=== PATIENT | male | born 1945 | race Caucasian/White ===

== ENCOUNTER 2017-04-24 12:21 | Inpatient (IN) | payer MEDICARE ==
[2017-04-24] VITALS (9 sets, daily range): BP systolic 133–198; BP diastolic 64–86; PULSE 48–61; RESP 16–20; TEMP 97.7–98.3; O2SAT 98–99
[~2017-04-24] VITALS: Ht 170.2 cm; Wt 72.5 kg
[2017-04-24] MEDS ORDERED: ASPIRIN 81 MG CHEW TAB CHEW ONE (12:45)
[2017-04-24] MEDS ORDERED: SODIUM CHLORIDE 0.9% FLUSH 10 ML FLUSH IVF PRN (12:45)
--- NOTE | 2017-04-24 13:09 | PD ---
HPI Chief Complaint: Chest Pain Time Seen by Provider: 12:28 Travel History International Travel<30 days: No Contact w/Intl Traveler<30days: No Traveled to known affect area: No History of Present Illness HPI The patient is a 71-year-old male who presents to the emergency department via private vehicle for back pain. 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 Recently he has had some neck pain of the superior aspect of the thoracic region and the lower cervical spine, but now complains of occasional pain between the scapula that radiates to the front of the chest. He denies any shortness of breath, nausea, vomiting, or diaphoresis. The patient denies any history of coronary artery disease, hypertension, hyperlipidemia, tobacco use, or diabetes. The patient states he exercises regularly, denies any chest pain or shortness of breath with exercise. Symptoms are moderate. He takes no medications except for vitamins on a daily basis. He denies any history of dissection, GERD, or esophageal spasm. He denies any alcohol intake or history of pancreatitis. [facility]LY [facility] Past Medical History Medical History: Denies Significant Hx Diminished Hearing: No Tetanus Vaccination: > 5 Years Influenza Vaccination: No Past Surgical History Abdominal Surgery: Yes (hernia repair) Social History Alcohol Use: No Tobacco Use: No Substance Use: No Allergies-Medications (Allergen,Severity, Reaction): Coded Allergies: No Known Allergies (Unverified , 04/24/17) Reported Meds & Prescriptions Reported Meds & Active Scripts Active No Active Prescriptions or Reported Medications Review of Systems Except as stated in HPI: all other systems reviewed are Neg General / Constitutional: No: Fever HENT: Positive: Neck Pain Cardiovascular: Positive: Chest Pain or Discomfort, No: Dyspnea on exertion Respiratory: No: Shortness of Breath Gastrointestinal: No: Nausea, Vomiting, Abdominal Pain Musculoskeletal: No: Weakness Neurologic: No: Dizziness Physical Exam Narrative GENERAL: Awake, alert, pleasant 71-year-old male who appears his stated age and is in no acute respiratory distress. SKIN: Focused skin assessment warm/dry. HEAD: Atraumatic. Normocephalic. EYES: Pupils equal and round. No scleral icterus. No injection or drainage. ENT: No nasal bleeding or discharge. Mucous membranes pink and moist. NECK: Trachea midline. No JVD. Mild tenderness of the lower cervical area, no tenderness over the paravertebral muscles. CARDIOVASCULAR: Regular rate and rhythm. No murmur appreciated. RESPIRATORY: No accessory muscle use. Clear to auscultation. Breath sounds equal bilaterally. GASTROINTESTINAL: Abdomen soft, non-tender, nondistended. No rebound tenderness. No epigastric tenderness. MUSCULOSKELETAL: No obvious deformities. No clubbing. No cyanosis. No edema. NEUROLOGICAL: Awake and alert. No obvious cranial nerve deficits. Motor grossly within normal limits. Normal speech. PSYCHIATRIC: Appropriate mood and affect; insight and judgment normal. Data Data Last Documented VS Vital Signs Date Time Temp Pulse Resp B/P (MAP) Pulse Ox O2 Delivery O2 Flow Rate FiO2 04/24/17 13:07 60 16 144/69 (94) 99 Room Air 04/24/17 12:24 98.2 Orders Orders Electrocardiogram (04/24/17 12:39) Ckmb (Isoenzyme) Profile (04/24/17 12:39) Complete Blood Count With Diff (04/24/17 12:39) Comprehensive Metabolic Panel (04/24/17 12:39) Magnesium (Mg) (04/24/17 12:39) Prothrombin Time / Inr (Pt) (04/24/17 12:39) Act Partial Throm Time (Ptt) (04/24/17 12:39) Troponin I (04/24/17 12:39) Chest, Single Ap (04/24/17 12:39) Ecg Monitoring (04/24/17 12:39) Bilateral Bp Monitoring (04/24/17 12:39) Iv Access Insert/Monitor (04/24/17 12:39) Oximetry (04/24/17 12:39) Oxygen Administration (04/24/17 12:39) Sodium Chloride 0.9% Flush (Ns Flush) (04/24/17 12:45) Aspirin Chew (Aspirin Chew) (04/24/17 12:45) CKMB (04/24/17 12:45) CKMB% (04/24/17 12:45) Admit Order (Ed Use Only) (04/24/17 15:37) Labs Laboratory Tests Test 04/24/17 12:45 White Blood Count 9.6 TH/MM3 Red Blood Count 5.74 MIL/MM3 Hemoglobin 19.0 GM/DL Hematocrit 53.4 % Mean Corpuscular Volume 93.1 FL Mean Corpuscular Hemoglobin 33.0 PG Mean Corpuscular Hemoglobin Concent 35.5 % Red Cell Distribution Width 13.4 % Platelet Count 181 TH/MM3 Mean Platelet Volume 8.7 FL Neutrophils (%) (Auto) 75.3 % Lymphocytes (%) (Auto) 15.6 % Monocytes (%) (Auto) 7.6 % Eosinophils (%) (Auto) 0.8 % Basophils (%) (Auto) 0.7 % Neutrophils # (Auto) 7.2 TH/MM3 Lymphocytes # (Auto) 1.5 TH/MM3 Monocytes # (Auto) 0.7 TH/MM3 Eosinophils # (Auto) 0.1 TH/MM3 Basophils # (Auto) 0.1 TH/MM3 CBC Comment DIFF FINAL Differential Comment Prothrombin Time 11.2 SEC Prothromb Time International Ratio 1.1 RATIO Activated Partial Thromboplast Time 23.5 SEC Blood Urea Nitrogen 25 MG/DL Creatinine 1.35 MG/DL Random Glucose 94 MG/DL Total Protein 7.5 GM/DL Albumin 3.4 GM/DL Calcium Level 9.4 MG/DL Magnesium Level 2.4 MG/DL Alkaline Phosphatase 60 U/L Aspartate Amino Transf (AST/SGOT) 46 U/L Alanine Aminotransferase (ALT/SGPT) 44 U/L Total Bilirubin 0.9 MG/DL Sodium Level 138 MEQ/L Potassium Level 4.1 MEQ/L Chloride Level 104 MEQ/L Carbon Dioxide Level 25.7 MEQ/L Anion Gap 8 MEQ/L Estimat Glomerular Filtration Rate 52 ML/MIN Total Creatine Kinase 568 U/L Creatine Kinase MB 7.7 NG/ML Creatine Kinase MB % 1.4 % Troponin I 0.07 NG/ML MDM Medical Decision Making Medical Screen Exam Complete: Yes Emergency Medical Condition: Yes Medical Record Reviewed: Yes Interpretation(s) EKG reveals normal sinus rhythm with a rate of 62. RSR prime in V1, incomplete right bundle branch block. Laboratory Tests Test 04/24/17 12:45 White Blood Count 9.6 TH/MM3 Red Blood Count 5.74 MIL/MM3 Hemoglobin 19.0 GM/DL Hematocrit 53.4 % Mean Corpuscular Volume 93.1 FL Mean Corpuscular Hemoglobin 33.0 PG Mean Corpuscular Hemoglobin Concent 35.5 % Red Cell Distribution Width 13.4 % Platelet Count 181 TH/MM3 Mean Platelet Volume 8.7 FL Neutrophils (%) (Auto) 75.3 % Lymphocytes (%) (Auto) 15.6 % Monocytes (%) (Auto) 7.6 % Eosinophils (%) (Auto) 0.8 % Basophils (%) (Auto) 0.7 % Neutrophils # (Auto) 7.2 TH/MM3 Lymphocytes # (Auto) 1.5 TH/MM3 Monocytes # (Auto) 0.7 TH/MM3 Eosinophils # (Auto) 0.1 TH/MM3 Basophils # (Auto) 0.1 TH/MM3 CBC Comment DIFF FINAL Differential Comment Prothrombin Time 11.2 SEC Prothromb Time International Ratio 1.1 RATIO Activated Partial Thromboplast Time 23.5 SEC Blood Urea Nitrogen 25 MG/DL Creatinine 1.35 MG/DL Random Glucose 94 MG/DL Total Protein 7.5 GM/DL Albumin 3.4 GM/DL Calcium Level 9.4 MG/DL Magnesium Level 2.4 MG/DL Alkaline Phosphatase 60 U/L Aspartate Amino Transf (AST/SGOT) 46 U/L Alanine Aminotransferase (ALT/SGPT) 44 U/L Total Bilirubin 0.9 MG/DL Sodium Level 138 MEQ/L Potassium Level 4.1 MEQ/L Chloride Level 104 MEQ/L Carbon Dioxide Level 25.7 MEQ/L Anion Gap 8 MEQ/L Estimat Glomerular Filtration Rate 52 ML/MIN Total Creatine Kinase 568 U/L Creatine Kinase MB 7.7 NG/ML Creatine Kinase MB % 1.4 % Troponin I 0.07 NG/ML Last Impressions Chest X-Ray 04/24/17 1239 Signed Impressions: Service Date/Time: Monday, April 24, 2017 12:55 - CONCLUSION: 1. No acute cardiopulmonary disease. Genaro Bragg MD Differential Diagnosis Differential diagnosis includes acute coronary syndrome, radiculopathy, esophageal spasm, GERD, dissection, aneurysm. Narrative Course IV was established, labs are drawn and sent, and the patient was placed on cardiac telemetry monitoring and continuous pulse oximetry monitoring. EKG was ordered and interpreted. Chest x-rays obtained. The patient received aspirin 162 mg orally. Chest x-rays unremarkable. Troponin was elevated at 0.07. The patient's hemoglobin was elevated at 19 and CPK-MB and CPK were elevated. The patient does use testosterone, most likely the result of his polycythemia. Elevated troponin may be secondary to rhabdomyolysis, acute kidney injury, or cardiac ischemia. The patient does have risk factors including age, male sex, and testosterone use. After discussion with the patient was agreed we would be a 23 hour observation for serial cardiac enzymes and possible stress test. Physician Communication Physician Communication The on-call medical team was paged for admission. I discussed the patient with Dr. March who agrees with admission. Diagnosis Primary Impression: NSTEMI, initial episode of care Admitting Information Admitting Physician Requests: Admit Scripts No Active Prescriptions or Reported Meds Condition: Stable Pedrito Foley MD Apr 24, 2017 13:09
--- NOTE | 2017-04-24 13:15 | RADRPT ---
EXAM DATE/TIME: 04/24/2017 12:55 [facility] COMPARISON: No previous studies available for comparison. INDICATIONS : Chest pain for 2 weeks MEDICAL HISTORY : None. SURGICAL HISTORY : None. ENCOUNTER: Initial ACUITY: 2 weeks PAIN SCORE: 10/10 LOCATION: Bilateral chest FINDINGS: A single view of the chest demonstrates the lungs to be symmetrically aerated without evidence of mas s, infiltrate or effusion. The cardiomediastinal contours are unremarkable. Osseous structures are intact. CONCLUSION: 1. No acute cardiopulmonary disease. Genaro Bragg MD on April 24, 2017 at 13:13 Board Certified Radiologist. This report was verified electronically.
[2017-04-24 13:35] LABS: AUTOMATED NEUTROPHIL # 7.2 TH/MM3 (1.8-7.7); BASOPHIL # 0.1 TH/MM3 (0-0.2); BASOPHIL % 0.7 % (0.0-2.0); EOSINOPHIL # 0.1 TH/MM3 (0-0.4); EOSINOPHIL % 0.8 % (0.0-4.0); HEMATOCRIT 53.4 % (39.0-51.0); LYMPH % 15.6 % (9.0-44.0); LYMPHOCYTE # 1.5 TH/MM3 (1.0-4.8); MEAN CELL VOLUME 93.1 FL (80.0-100.0); MEAN CORPUSCULAR HGB CONC 35.5 % (32.0-36.0); MEAN PLATELET VOLUME 8.7 FL (7.0-11.0); MONO % 7.6 % (0.0-8.0); MONOCYTE # 0.7 TH/MM3 (0-0.9); NEUT % 75.3 % (16.0-70.0); PLATELET COUNT 181 TH/MM3 (150-450); RED BLOOD COUNT 5.74 MIL/MM3 (4.50-5.90); RED CELL DISTRIBUTION WIDTH 13.4 % (11.6-17.2); WHITE BLOOD COUNT 9.6 TH/MM3 (4.0-11.0)
[2017-04-24 13:45] LABS: INTERNATIONAL NORMALIZED RATIO 1.1 RATIO; PROTHROMBIN TIME - PATIENT 11.2 SEC (9.8-11.6)
[2017-04-24 14:06] LABS: ALT (GPT) 44 U/L (12-78)
[2017-04-24 14:18] LABS: ALBUMIN 3.4 GM/DL (3.4-5.0); ALKALINE PHOSPHATASE 60 U/L (45-117); AST (GOT) 46 U/L (15-37); BICARBONATE 25.7 MEQ/L (21.0-32.0); BLOOD UREA NITROGEN 25 MG/DL (7-18); CALCIUM 9.4 MG/DL (8.5-10.1); CHLORIDE 104 MEQ/L (98-107); CREATININE 1.35 MG/DL (0.60-1.30); GLOMERULAR FILTRATION RATE 52 ML/MIN (>89); GLUCOSE,RANDOM 94 MG/DL (74-106); MAGNESIUM 2.4 MG/DL (1.5-2.5); SODIUM (NA) 138 MEQ/L (136-145); TOTAL BILIRUBIN ADULT 0.9 MG/DL (0.2-1.0); TOTAL PROTEIN 7.5 GM/DL (6.4-8.2); TROPONIN I 0.07 NG/ML (0.02-0.05)
--- NOTE | 2017-04-24 17:11 | HHI.HP ---
[facility] Service [facility] Primary Care Physician No Primary Care Physician Admission Diagnosis chest pain elevated troponin rule out ACS Diagnoses: Chief Complaint: chest pain Travel History International Travel<30 Days: No Contact w/Intl Traveler <30 Da: No Traveled to Known Affected Are: No History of Present Illness This is a 71-year-old male with no comorbidities presenting with chest pain which started about 5 days ago, intermittent, usually post exercise, described as sharp, starting from the posterior neck area radiating to the substernal area , severe, 10/10, lasting for 5 minutes and will go away spontaneously. No radiation to both arms or neck area. Patient denies any associated shortness of breath, nausea, vomiting or blurring of vision. Patient is a non-smoker, no history of sudden cardiac in the family, patient uses intramuscular testosterone. Per patient, he exercises daily, rides the bike, 20 miles per day or more with moderate to severe exertion but during the last week, he would have this intermittent pain. Blood work was allegedly done yesterday through his primary care physician. Of note, he was recently diagnosed to have cervical vertebral issues,: C1 and C2 fusion <?>. Review of Systems ROS Limitations: Other (All other pertinent systems were reviewed and are negative.) Past Family Social History Past Medical History None Past Surgical History Hernia repair Reported Medications Testosterone IM Allergies: Coded Allergies: No Known Allergies (Unverified , 04/24/17) Family History No h/o cardiac disease Mother - Alzheimer's Social History Non-smoker, no significant alcohol use. Physical Exam Vital Signs Vital Signs Date Time Temp Pulse Resp B/P (MAP) Pulse Ox O2 Delivery O2 Flow Rate FiO2 04/24/17 13:07 60 16 144/69 (94) 99 Room Air 04/24/17 12:41 99 Room Air 04/24/17 12:24 98.2 59 16 198/86 (123) 99 Physical Exam GENERAL: Not in acute distress, well-nourished. HEAD: Atraumatic. Normocephalic. No temporal or scalp tenderness. EYES: PERRL, full EOMs, no jaundice, nonicteric, pink conjunctivae without injection, moist mucosa ENT: Nose without bleeding, purulent drainage. NECK: Trachea midline, no mass, no obvious thyromegaly. No JVD or lymphadenopathy. CARDIOVASCULAR: Regular rate and rhythm without murmurs, gallops, or rubs. No reproducible chest pain. RESPIRATORY: Clear to auscultation with normal respiratory effort. Breath sounds equal bilaterally. No use of accessory muscles of respiration. GASTROINTESTINAL: Abdomen soft, normal bowel sounds, non-tender, nondistended. No hepato-splenomegaly or palpable mass. No guarding. CAMILLA and exam deferred. MUSCULOSKELETAL: Extremities without clubbing, cyanosis, or edema. No joint tendernes. No calf tenderness. Distal pulses intact, 2+ bilaterally. No point tenderness thoracic, cervical and lumbar spine. INTEGUMENTARY: Warm and dry, no rash of generalized distribution. NEUROLOGICAL: Awake, alert, oriented 3. No obvious cranial nerve deficits. Moves all 4 extremities, muscle strength testing 5 over 5. Motor and sensory grossly within normal limits. .Supple neck, no meningeal signs. Grossly negative cerebellar examination. No focal neurologic deficits. PSYCHIATRIC: Normal mood, appropriate affect. Laboratory Laboratory Tests Test 04/24/17 12:45 White Blood Count 9.6 Red Blood Count 5.74 Hemoglobin 19.0 Hematocrit 53.4 Mean Corpuscular Volume 93.1 Mean Corpuscular Hemoglobin 33.0 Mean Corpuscular Hemoglobin Concent 35.5 Red Cell Distribution Width 13.4 Platelet Count 181 Mean Platelet Volume 8.7 Neutrophils (%) (Auto) 75.3 Lymphocytes (%) (Auto) 15.6 Monocytes (%) (Auto) 7.6 Eosinophils (%) (Auto) 0.8 Basophils (%) (Auto) 0.7 Neutrophils # (Auto) 7.2 Lymphocytes # (Auto) 1.5 Monocytes # (Auto) 0.7 Eosinophils # (Auto) 0.1 Basophils # (Auto) 0.1 CBC Comment DIFF FINAL Differential Comment Prothrombin Time 11.2 Prothromb Time International Ratio 1.1 Activated Partial Thromboplast Time 23.5 Blood Urea Nitrogen 25 Creatinine 1.35 Random Glucose 94 Total Protein 7.5 Albumin 3.4 Calcium Level 9.4 Magnesium Level 2.4 Alkaline Phosphatase 60 Aspartate Amino Transf (AST/SGOT) 46 Alanine Aminotransferase (ALT/SGPT) 44 Total Bilirubin 0.9 Sodium Level 138 Potassium Level 4.1 Chloride Level 104 Carbon Dioxide Level 25.7 Anion Gap 8 Estimat Glomerular Filtration Rate 52 Total Creatine Kinase 568 Creatine Kinase MB 7.7 Creatine Kinase MB % 1.4 Troponin I 0.07 Result Diagram: 04/24/17 1245 04/24/17 1245 Imaging Last Impressions Chest X-Ray 04/24/17 1239 Signed Impressions: Service Date/Time: Monday, April 24, 2017 12:55 - CONCLUSION: 1. No acute cardiopulmonary disease. MD Kd Riggins VTE Risk Assessment Kd VTE Risk Assessment: Mod/High Risk (score >= 2) Caprini Risk Assessment Model Point Value = 1 Point Value = 2 Point Value = 3 Point Value = 5 Age 41-60 Minor surgery BMI > 25 kg/m2 Swollen legs Varicose veins or History of unexplained or recurrent spontaneous Oral contraceptives or hormone replacement Sepsis (< 1 month) Serious lung disease, including pneumonia (< 1 month) Abnormal pulmonary function Acute myocardial infarction Congestive heart failure (< 1 month) History of inflammatory bowel disease Medical patient at bed rest Age 61-74 Arthroscopic surgery Major open surgery (> 45 min) Laparoscopic surgery (> 45 min) Malignancy Confined to bed (> 72 hours) Immobilizing plaster cast Central venous access Age >= 75 History of VTE Family history of VTE Factor V Leiden Prothrombin [id number] Lupus anticoagulant Anticardiolipin antibodies Elevated serum homocysteine Heparin-induced thrombocytopenia Other congenital or acquired thrombophilia Stroke (< 1 month) Elective arthroplasty Hip, pelvis, or leg fracture Acute spinal cord injury (< 1 month) Prophylaxis Regimen Total Risk Factor Score Risk Level Prophylaxis Regimen 0-1 Low Early ambulation 2 Moderate Order ONE of the following: *Sequential Compression Device (SCD) *Heparin 5000 units SQ BID 3-4 Higher Order ONE of the following medications: *Heparin 5000 units SQ TID *Enoxaparin/Lovenox 40 mg SQ daily (WT < 150 kg, CrCl > 30 mL/min) *Enoxaparin/Lovenox 30 mg SQ daily (WT < 150 kg, CrCl > 10-29 mL/min) *Enoxaparin/Lovenox 30 mg SQ BID (WT < 150 kg, CrCl > 30 mL/min) AND/OR *Sequential Compression Device (SCD) 5 or more Highest Order ONE of the following medications: *Heparin 5000 units SQ TID (Preferred with Epidurals) *Enoxaparin/Lovenox 40 mg SQ daily (WT < 150 kg, CrCl > 30 mL/min) *Enoxaparin/Lovenox 30 mg SQ daily (WT < 150 kg, CrCl > 10-29 mL/min) *Enoxaparin/Lovenox 30 mg SQ BID (WT < 150 kg, CrCl > 30 mL/min) AND *Sequential Compression Device (SCD) Assessment and Plan Problem List: (1) Chest pain ICD Code: R07.9 - Chest pain, unspecified (2) Polycythemia ICD Code: D75.1 - Secondary polycythemia Assessment and Plan This is a 71-year-old male with no significant comorbidities presenting with chest pain Chest pain-initial troponin 0 0.07, initial EKG showed incomplete right bundle branch block, repeat EKG showed incomplete right bundle branch block and LVH. Continue serial EKG and troponins. For nuclear stress test in the morning, consult cardiology, Heart healthy diet. If negative stress test, possible cervical radiculopathy. Keep on telemetry. Troponin elevation may be secondary to mild rhabdomyolysis. CK is also mildly elevated. Hypertension-new diagnosis? Clonidine as needed, ? Testosterone induced, advised to decrease testosterone usage and follow-up with his primary care physician. If persistent, will start on antihypertensives. Dehydration-recheck BMP, oral rehydration, start IVF. Polycythemia-likely secondary to testosterone use, advised to follow-up with PCP regarding going down on testosterone dose or frequency of administration. Heparin for DVT prophylaxis Armando March MD Apr 24, 2017 17:11
[2017-04-24] MEDS ORDERED: NALOXONE HCL 0.4 MG/ML AMP IV PUSH PRN (17:15)
[2017-04-24] MEDS ORDERED: ONDANSETRON HCL 4 MG/2 ML VIAL IVP PRN (17:15)
[2017-04-24] MEDS ORDERED: SENNOSIDES 8.6 MG TAB PO PRN (17:15)
[2017-04-24] MEDS ORDERED: LACTULOSE SYRUP 20 GM/30 ML CUP PO PRN (17:15)
[2017-04-24] MEDS ORDERED: MAGNESIUM HYDROXIDE SUSP 30 ML CUP PO PRN (17:15)
[2017-04-24] MEDS ORDERED: BISACODYL 10 MG SUPP RECTAL PRN (17:15)
[2017-04-24] MEDS ORDERED: ACETAMINOPHEN 325 MG TAB PO PRN (17:15)
[2017-04-24] MEDS ORDERED: SODIUM CHLORIDE 0.9% FLUSH 10 ML FLUSH IV FLUSH PRN (17:15)
[2017-04-24] MEDS ORDERED: cloNIDine HCL 0.1 MG TAB PO PRN (17:45)
[2017-04-24] MEDS: ASPIRIN 325 MG TAB PO SCH (18:42)
[2017-04-24] MEDS ORDERED: HEPARIN SODIUM - IV 10,000 UNITS/10 ML VIAL IV PUSH PRN ×2 (20:00)
--- NOTE | 2017-04-24 20:40 | MB ---
cc: JADEN SALAS M.D. 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 He recently began experiencing intrascapular pain, bilateral shoulder pain and developed severe chest pain while driving with his today. He had to wire puller and have his drive the care to the ER. He denies shortness of breath, fevers, chills, cough, GI or bleeding, paroxysmal nocturnal dyspnea, orthopnea, syncope or dizziness. PAST MEDICAL HISTORY As per is present illness. He has a history of a hernia repair. SOCIAL HISTORY Denies tobacco or alcohol use. ALLERGIES None. MEDICATIONS In the hospital 1. IV heparin, 2. Aspirin 325 daily. PHYSICAL EXAMINATION VITAL SIGNS: Blood pressure 155/72, pulse 53, temperature 97.7, respiratory rate 18, sats 99% on room air. GENERAL: He is alert and oriented x3 in no distress NECK: Supple. No JVD, no bruit. CARDIOVASCULAR: S1, S2. No murmurs, rubs or gallops. LUNGS: Clear to auscultation bilaterally ABDOMEN: Soft, nontender, nondistended with positive bowel sounds. EXTREMITIES: No lower extremity edema. IMAGING STUDIES Chest x-ray shows no acute cardiopulmonary disease. CARDIOLOGY STUDIES EKG - cannot obtain from the computer. LABORATORY DATA White count 9.6, hemoglobin 19.0, hematocrit 53.4, platelet count 181. Sodium 138, potassium 41, chloride 104, bicarb 25.7, BUN 25, creatinine 1.35, AST is 46, ALT 44, troponin 0.07, second troponin is 1.26, MB percent 1.4%, INR 1.1. DIAGNOSES 1. Non STEMI 2. Renal insufficiency. 3. Elevated liver function tests 4. Polycythemia. DISCUSSION The patient is currently chest pain free. I agree with aspirin and heparin. Beta-blockers are contraindicated due to bradycardia. Plan is to keep him nothing by mouth after midnight and I do think left heart catheterization is medically necessary. Also start the patient on normal saline given his elevated creatinine. Jaden Salas MD Luis Manuel/SA Earl: 04/24/2017/8:04 PM /8:23 PM
[2017-04-24] MEDS: DOCUSATE SODIUM 50 MG/SENNA 8.6 MG TAB PO SCH (20:46)
[2017-04-24] MEDS: HEPARIN 25,000 UNITS-D5W 250 ML - PREMIX IV PRN (20:47)
[2017-04-24] MEDS: SODIUM CHLOR 0.9% 1000 ML INJ 1,000 ML IV SCH (20:48)
[2017-04-24] MEDS ORDERED: SODIUM CHLORIDE 0.9% FLUSH 10 ML FLUSH IV FLUSH SCH (21:00)
[2017-04-24] MEDS ORDERED: HEPARIN SODIUM - SQ 10,000 UNITS/ML VIAL SQ SCH (22:00)
[2017-04-25] VITALS (9 sets, daily range): BP systolic 115–168; BP diastolic 59–82; PULSE 48–65; RESP 16–20; TEMP 98–98.3; O2SAT 94–99
[2017-04-25] MEDS: SODIUM CHLOR 0.9% 1000 ML INJ 1,000 ML IV SCH ×3 (03:45→23:45)
[2017-04-25] MEDS: ASPIRIN 325 MG TAB PO SCH (08:29)
[2017-04-25] MEDS ORDERED: NITROGLYCERIN INJ 5 ML ONE (08:59)
[2017-04-25] MEDS ORDERED: HEPARIN SODIUM - IV 10,000 UNITS/10 ML VIAL ONE (08:59)
[2017-04-25] MEDS ORDERED: MIDAZOLAM HCL 2 MG/2 ML VIAL ONE (08:59)
[2017-04-25] MEDS ORDERED: HEPARIN-NS/PF FLUSH BAG 2,000 ML IV FLUSH ONE (08:59)
[2017-04-25] MEDS: DOCUSATE SODIUM 50 MG/SENNA 8.6 MG TAB PO SCH ×2 (09:00→21:00)
[2017-04-25] MEDS ORDERED: BACITRACIN OINT 0.9 GM PKT TOP ONE (10:30)
[2017-04-25] MEDS ORDERED: SODIUM CHLORIDE 0.9% FLUSH 10 ML FLUSH IV FLUSH PRN ×2 (10:30→12:45)
[2017-04-25] MEDS ORDERED: MISC INFORMATION XX ONE (10:30)
--- NOTE | 2017-04-25 11:46 | CATHPROC ---
[facility] HIS Report Study Information Study Number Admission Scheduled Start Study Start [id number] Apr 24 2017 3:38PM 04/25/2017 Apr 25 2017 8:41AM [place] Service Cardiac Catheterization Admit Source Facility Department Emergency department [facility] - Compensation Administrator Physician and Clinical Staff Initial Jaden Sena General AssistantJudy Allison,Marcela Rojas,JAZMINE Recorder Guerda Miguel,RT(R) (BS) Scrub Awilda Lazar,BENSON TECH2 Procedures Performed Procedure Location (Site) Vessel Name Coronary Angiograms LCA Left Coronary L Heart Cath LV Gram-hand inj. LV LV Ventricle Wire insertion Fem Art (right) Femoral Art Equipment Time [employer] Description Size Mfg Part Number Used/Scraped TRANSDUCER, TRMANUELAVE [id number] 08:44 SAVAGE GARCIA * Used W/STOCKCOCK *[id number] *[id number] *[id number] 08:44 [employer] PACK, CCL CUSTOM * Used *[id number] 08:44 [employer] PACER PEN, SKIN DUAL W/ RULER * Used *[id number] 08:44 [employer] WIRE, 3MMJ .035 180CM 180CM Used *[id number] 08:44 [employer]AMIC MANIFOLD, 4 PORT * Used *[id number] 08:44 [employer] OMNIPAQUE, 350 MG, 150ML 150ML [id number] Used [id number] 08:44 [employer],WARM AIR CCL * Used *[id number] 08:44 [employer] SHEATH, FR4 TERUMO (10CM) FR 4 Used *[id number] History: Current Medications Medication Dosage/Unit Route Frequency Last Date/Time Taken ASA HEPARIN History: Allergies Allergy Reaction No Known Allergies History: Risk Factors Family History of Hypertension Dyslipidemia Previous CA Previous Heart Failure Premature CAD No No No No No Prior Valve Prior PCI Prior CABG Surgery No No No Cerebrovascular Peripheral Artery Chronic Lung On Dialysis Diabetes Disease Disease Disease No No No No No History: Stress Tests Stress or Imaging Studies Performed No History: Other Current Smoker No Labs Hgb (g/dl) Hct (%) WBC (l/cumm) Platelets (thousands) 11.60-17.00 35.00-51.00 4.00-11.00 150.00-450.00 19.0 53.4 9.6 181 Glucose (mg/dl) BUN (mg/dl) Creatinine (mg/dl) BUN:Creatinine (1:x) 74.00-106.00 7.00-18.00 0.50-1.30 10.00-20.00 94 25 1.3 19.2 Na (meq/l) K (meq/l) 136.00-145.00 3.50-5.10 138 4.1 INR (PTT:PT) 0.90-1.10 1.1 Troponin I (ng/ml) CPK (u/l) CPK-MB (ng/ML) 0.02-0.05 26.00-308.00 0.50-3.60 0.82 568 7.7 Medication Medication Total Dose (Bolus/Oral) Medication Total Dosage/Unit 1% XYLOCAINE 20 mL VERSED 2 mg Medications (Bolus/Oral) Medication Time Given Dosage/Unit Administered By Reason VERSED 04/25/2017 9:23:09 AM 1 mg Marcela Triplett 1 mg VERSED given in lab by Marcela Triplett, RN in Left Antecubital via Peripheral IV. 1% XYLOCAINE 04/25/2017 9:28:33 AM 20 mL Jaden Dean 20 mL 1% XYLOCAINE given in lab by Jaden Dean in Right Groin via Subcutaneous. VERSED 04/25/2017 9:46:53 AM 1 mg Judy Cheung 1 mg VERSED given in lab by Judy Cheung, RN in Left Antecubital via Peripheral IV. Medication (Drip) Medication Time Given Dosage/Unit Concentration/Unit Diluent (ml) Solution HEPARIN DRIP STOPPED 04/25/2017 8:45:16 AM 0 units/hr 0 Patient arrived on 0 units/hr HEPARIN DRIP STOPPED via Peripheral IV. Pump/Drip Flow = 0 ml/hr using [Solution Name]. IV Solutions 04/25/2017 8:53:33 AM 0 mL (IV) 1000 NaCl .9 Patient arrived on IV Solutions in Left Antecubital via Peripheral IV. Pump/Drip Flow = 30 ml/hr usin g NaCl .9. Initial Case Assessment Cardiovascular HR Rhythm NIBP Chest Pain 63 rwg 168/84 0 Edema Present Skin color Skin None Normal Warm Dry Circulatory - Right Pulses Dorsalis Pedis Femoral 3 3 Scale (0,1,2,3,4,d) Circulatory - Left Pulses Dorsalis Pedis Femoral 3 3 Scale (0,1,2,3,4,d) Circulatory - Lower Extremities Color Lower Right Color Lower Left Normal Normal Neurological State Oriented to time-place- Alert Moves all extremities person Respiration - General Respiration Rate SpO2 (%) (B/min) 20 100 Chronological Log Time Study Chronological Log Patient arrived on 0 units/hr HEPARIN DRIP STOPPED via Peripheral IV. Pump/Drip Flow = 0 ml/hr using [Solution 8:45:16 Name]. 8:53:22 Patient arrived via Bed. 8:53:22 Patient Name, D.O.B, / Armband Verified By R.N. 8:53:23 Consent signed by the physician and the patient and verified by the Compensation Administrator staff. 8:53:23 Pre-op and post- op instructions given; patient acknowledges understanding of instructions. 8:53:24 Verbal Stimulation=2 Physical Stimulation=2 Airway=2 Respiration=2 TOTAL=8. (0=absent, 1=li mited, 2=present) 8:53:25 Presedation assessment performed by Compensation Administrator RN. 8:53:27 Patient has been NPO for More than 6Hrs. 8:53:28 Skin Breakdown none per pt 8:53:30 Patient Warmer Placed on the Table. 8:53:31 Natalia Prominences Protected 8:53:32 A # 20 IV was noted in the Antecubital (left). Grade = 0 8:53:33 Patient arrived on IV Solutions in Left Antecubital via Peripheral IV. Pump/Drip Flow = 30 ml/hr using NaCl .9. 8:53:33 History and physical on the chart or being dictated. Assessment: Initial Case, HR=63 BPM, Rhythm=rwg, YKYY=517/84 mmhg, Chest Pain=0, Edema=None, Color=Normal, Skin = Warm, Dry Right Pulses: Jj Ped=3, Femoral=3 Left Pulses: Jj Ped=3, Femoral=3 8:53:34 Lower Right Extremities: Color=Normal Lower Left Extremities: Color=Normal Neurological: State=Alert, Ox3, CHO Respiration: Resp=20 B/min, YuO0=015 % Vitals capture started with the following parameters, Patient=Adult, Interval=5 min, Initial Pre rilwz=009 mmHg, 9:00:05 Deflation Rate=5 mmHg, Cuff placed on Left Arm 9:01:20 HR=73 bpm, ASZF=894/84 mmhg, SpO2=99.0 %, Resp=13 B/min, Pain=0, Renaldo=10, Gordon=2 9:05:51 HR=60 bpm, AVLC=531/81 mmhg, HnV3=166.0 %, Resp=19 B/min, Pain=0, Renaldo=10, Gordon=2 9:06:41 Reference ECG taken 9:08:57 Bilateral groins prepped with 2% chlorhexidine, and draped after a 3 minute waiting time. 9:10:48 HR=63 bpm, EGRW=844/86 mmhg, NhT4=273.0 %, Resp=27 B/min, Pain=0, Renaldo=10, Gordon=2 9:12:08 MD paged 9:13:38 Pressure channel 1 zeroed. 9:15:49 HR=62 bpm, GBZB=677/80 mmhg, SpO2=99.0 %, Resp=20 B/min, Pain=0, Renaldo=10, Gordon=2 9:19:44 MD responded 9:20:50 HR=61 bpm, AOUQ=499/77 mmhg, SpO2=99.0 %, Resp=20 B/min, Pain=0, Renaldo=10, Gordon=2 9:21:15 MD arrived. 9:23:09 1 mg VERSED given in lab by Marcela Triplett, RN in Left Antecubital via Peripheral IV. 9:25:47 HR=62 bpm, ELCM=382/77 mmhg, SpO2=98.0 %, Resp=22 B/min, Pain=0, Renaldo=10, Gordon=2 Time Out. Correct patient, correct procedure, correct physician, power injector not loaded with contrast with surgical 9:28:18 team present. Time Out Concurred by MD and individual staff in procedure. 9:28:26 Case Start 9:28:33 20 mL 1% XYLOCAINE given in lab by Jaden Dean in Right Groin via Subcutaneous. 9:29:52 Access site was Right Femoral Artery. 9:30:03 A SHEATH, FR4 TERUMO (10CM) FR 4 was advanced into the Fem Art (right) using the Percutaneou s technique. A JR 4.0 INFINITI CATHETER FR 4 was advanced over a wire. OMNIPAQUE, 350 MG, 150ML 150ML was use d for 9:30:59 injections. 9:31:17 HR=58 bpm, BWUK=723/79 mmhg, SpO2=99.0 %, Resp=20 B/min, Pain=0, Renaldo=10, Gordon=2 9:32:18 A WIRE, 3MMJ .035 180CM 180CM was inserted via Fem Art (right). 9:32:50 Wire removed 9:33:04 Activated Clotting Time Drawn Recorded Pressure: LV, HR=56, Condition=Condition 1 9:33:19 (Left Ventricle) LV 136/0/9 9:33:26 The LV was manually injected with 8 cc's and visualized. OMNIPAQUE, 350 MG, 150ML 150ML used . Recorded Pressure: LV, Ao, HR=61, Condition=Condition 1 9:33:35 (Left Ventricle) LV 147/1/11, (Aorta) Ao 150/69/101 Recorded Pressure: Ao, HR=59, Condition=Condition 1 9:33:51 (Aorta) Ao 139/63/91 9:34:14 Catheter was removed A JL 4.0 INFINITI CATHETER FR 4 was advanced over a wire. OMNIPAQUE, 350 MG, 150ML 150ML was use d for 9:34:16 injections. 9:35:12 ACT (Normal Range 90-180) = 135 9:35:25 The LCA was injected and visualized at various angles. OMNIPAQUE, 350 MG, 150ML 150ML used. 9:35:47 HR=57 bpm, XNBO=161/76 mmhg, SpO2=98.0 %, Resp=18 B/min, Pain=0, Renaldo=10, Gordon=2 9:36:03 Catheter was removed 9:38:50 MD discussing options with patient. 9:40:46 HR=63 bpm, JUOB=264/84 mmhg, SpO2=98.0 %, Resp=20 B/min, Pain=0, Renaldo=10, Gordon=2 9:45:37 Case End 9:45:43 Catheter(s) removed without difficulty 9:45:49 HR=65 bpm, JCLT=257/85 mmhg, SpO2=99.0 %, Resp=15 B/min, Pain=0, Renaldo=10, Gordon=2 9:45:52 No case complications noted. 9:45:56 Bedside Report will be given. 9:46:00 A Left Heart Cath was performed. 9:46:53 1 mg VERSED given in lab by Judy Cheung, RN in Left Antecubital via Peripheral IV. 9:46:59 Sheath removed; pressure applied to access site. 9:50:52 HR=60 bpm, DMEK=453/76 mmhg, SpO2=98.0 %, Resp=15 B/min, Pain=0, Renaldo=10, Gordon=2 9:55:51 HR=56 bpm, SZFR=106/72 mmhg, SpO2=99.0 %, Resp=16 B/min, Pain=0, Renaldo=10, Gordon=2 10:00:44 HR=57 bpm, XZEN=723/76 mmhg, SpO2=98.0 %, Resp=16 B/min, Pain=0, Ernaldo=10, Gordon=2 10:05:20 Vitals capture stopped. 10:07:45 Sterile dressing applied to site Vitals capture started with the following parameters, Patient=Adult, Interval=5 min, Initial Pr vvemba=683 mmHg, 10:25:04 Deflation Rate=5 mmHg, Cuff placed on Left Arm 10:25:41 NZBA=179/76 mmhg, SpO2=96.0 %, Pain=0, Renaldo=10, Gordon=2 10:26:50 Spoke to George Calvo. Waiting for patient to be moved from CVICU and room to be STAT cleaned . 10:30:44 HR=57 bpm, HDML=915/73 mmhg, SpO2=96.0 %, Resp=23 B/min, Pain=0, Renaldo=10, Gordon=2 10:35:39 HR=61 bpm, NQSW=483/80 mmhg, SpO2=96.0 %, Resp=19 B/min, Pain=0, Renaldo=10, Gordon=2 10:41:23 HR=62 bpm, KPNW=252/80 mmhg, SpO2=96.0 %, Resp=15 B/min, Pain=0, Renaldo=10, Gordon=2 10:46:12 HR=60 bpm, JXBO=418/77 mmhg, SpO2=96.0 %, Resp=14 B/min, Pain=0, Renaldo=10, Gordon=2 10:51:34 HR=64 bpm, AJXM=331/79 mmhg, SpO2=97.0 %, Resp=15 B/min, Pain=0, Renaldo=10, Gordon=2 10:56:31 HR=66 bpm, UPZB=732/83 mmhg, SpO2=97.0 %, Resp=15 B/min, Pain=0, Renaldo=10, Gordon=2 11:00:55 HR=72 bpm, JJRX=038/76 mmhg, SpO2=97.0 %, Resp=18 B/min, Pain=0, Renaldo=10, Gordon=2 11:05:58 HR=71 bpm, GEIU=403/75 mmhg, SpO2=97.0 %, Resp=15 B/min, Pain=0, Renaldo=10, Gordon=2 11:11:42 HR=66 bpm, QTCW=141/78 mmhg, SpO2=96.0 %, Resp=18 B/min, Pain=0, Renaldo=10, Gordon=2 11:15:52 HR=61 bpm, XRBL=650/69 mmhg, SpO2=98.0 %, Resp=15 B/min, Pain=0, Renaldo=10, Gordon=2 11:20:53 HR=62 bpm, ERCW=810/85 mmhg, SpO2=98.0 %, Resp=22 B/min, Pain=0, Renaldo=10, Gordon=2 11:25:54 HR=68 bpm, AXPI=235/86 mmhg, SpO2=97.0 %, Resp=14 B/min, Pain=0, Renaldo=10, Gordon=2 11:30:57 HR=66 bpm, CAXZ=250/85 mmhg, SpO2=97.0 %, Resp=12 B/min, Pain=0, Renaldo=10, Gordon=2 11:35:56 HR=68 bpm, ABSF=786/96 mmhg, SpO2=97.0 %, Resp=15 B/min, Pain=0, Renaldo=10, Gordon=2 11:41:04 HZQU=095/87 mmhg, Pain=0, Renaldo=10, Gordon=2 11:42:33 Patient moved to stretcher 11:45:29 Vitals capture stopped. End Study - Contrast Media Used In Study Contrast Total Opened (mL) Total Used (mL) Total Wasted (mL) Omnipaque 15 15 0 End Study - Maximum Contrast Load Max Contrast Load (mL) 269.6 End Study - Radiation Exposure Fluoro Time (minutes) 1.6 End Study - Sheaths Sheaths Pulled By Sheath Hold Time (min) Awilda Lazar End Study - Patient Disposition Complications Transferred To Interventional Outcome No Critical Care Bed No attempt made
--- NOTE | 2017-04-25 12:17 | PD.CONS ---
History of Present Illness Service CT Surgery Consult Requested By Dr. Dean Reason for Consult NSTEMI, multivessel CAD Primary Care Physician No Primary Care Physician Diagnoses: (1) CAD (coronary artery disease) (2) NSTEMI, initial episode of care (3) Chest pain History of Present Illness 71 y/o male with no prior cardiac history presents with severe sharp back and chest pain radiating to the neck. He has been having episodes with increasing severity over the past 3-4 weeks. He is an avid cyclist and his exercise tolerance has been affected. He denies any risk factors, diaphoresis, palpitations, dyspnea, nausea. Review of Systems Constitutional: DENIES: Diaphoretic episodes, Fatigue, Fever, Weight gain, Weight loss, Chills, Dizziness, Change in appetite, Night Sweats Endocrine: DENIES: Heat/cold intolerance, Polydipsia, Polyuria, Polyphagia Eyes: DENIES: Blurred vision, Diplopia, Eye inflammation, Eye pain, Vision loss , Photosensitivity, Double Vision Ears, nose, mouth, throat: DENIES: Tinnitus, Hearing loss, Vertigo, Nasal discharge, Oral lesions, Throat pain, Hoarseness, Ear Pain, Running Nose, Epistaxis, Sinus Pain, Toothache, Odynophagia Respiratory: DENIES: Apneas, Cough, Snoring, Wheezing, Hemoptysis, Sputum production, Shortness of breath Cardiovascular: COMPLAINS OF: Chest pain, DENIES: Palpitations, Syncope, Dyspnea on Exertion, PND, Lower Extremity Edema, Orthopnea, Claudication Gastrointestinal: DENIES: Abdominal pain, Black stools, Bloody stools, Constipation, Diarrhea, Nausea, Vomiting, Difficulty Swallowing, Anorexia Genitourinary: DENIES: Sexual dysfunction, Urinary frequency, Urinary incontinence, Urgency, Hematuria, Dysuria, Nocturia, Penile Discharge, Testicular Pain, Testicular Swelling Musculoskeletal: DENIES: Joint pain, Muscle aches, Stiffness, Joint Swelling, Back pain, Neck pain Integumentary: DENIES: Abnormal pigmentation, Nail changes, Pruritus, Rash Hematologic/lymphatic: DENIES: Bruising, Lymphadenopathy Immunologic/allergic: DENIES: Eczema, Urticaria Neurologic: DENIES: Abnormal gait, Headache, Localized weakness, Paresthesias, Seizures, Speech Problems, Tremor, Poor Balance Psychiatric: DENIES: Anxiety, Confusion, Mood changes, Depression, Hallucinations, Agitation, Suicidal Ideation, Homicidal Ideation, Delusions Past Family Social History Allergies: Coded Allergies: No Known Allergies (Unverified , 04/24/17) Past Medical History Polycythemia Past Surgical History h/o hernia repair Reported Medications Testosterone Active Ordered Medications Current Medications Medications (Trade) Dose Ordered Sig/Alissa Route Start Time Stop Time Status Last Admin (NS Flush) 2 ml UNSCH PRN IVF 04/24/17 12:45 04/24/17 13:05 (NS Flush) 2 ml UNSCH PRN IV FLUSH 04/24/17 17:15 (NS Flush) 2 ml BID IV FLUSH 04/24/17 21:00 04/24/17 20:46 (Tylenol) 650 mg Q4H PRN PO 04/24/17 17:15 (Zofran Inj) 4 mg Q6H PRN IVP 04/24/17 17:15 (Narcan Inj) 0.4 mg UNSCH PRN IV PUSH 04/24/17 17:15 (Marisabel-Colace) 1 tab BID PO 04/24/17 21:00 04/24/17 20:46 (Milk Of Magnesia Liq) 30 ml Q12H PRN PO 04/24/17 17:15 (Senokot) 17.2 mg Q12H PRN PO 04/24/17 17:15 (Dulcolax Supp) 10 mg DAILY PRN RECTAL 04/24/17 17:15 (Lactulose Liq) 30 ml DAILY PRN PO 04/24/17 17:15 (Aspirin) 325 mg DAILY PO 04/24/17 18:00 04/25/17 08:29 Sodium Chloride 1,000 ml @ 100 mls/hr Q10H IV 04/24/17 17:45 04/24/17 20:48 (Catapres) 0.1 mg Q6H PRN PO 04/24/17 17:45 Heparin Sodium/ Dextrose 250 ml @ 8 mls/hr TITRATE PRN IV 04/24/17 20:00 04/24/17 20:47 (Heparin Inj) 5,000 units UNSCH PRN IV PUSH 04/24/17 20:00 04/24/17 20:48 (Heparin Inj) 2,500 units UNSCH PRN IV PUSH 04/24/17 20:00 04/25/17 06:30 (NS Flush) 2 ml BID IV FLUSH 04/25/17 21:00 (NS Flush) 2 ml UNSCH PRN IV FLUSH 04/25/17 10:30 (Heparin Inj) 4,000 units ONCE ONCE IV 04/25/17 14:00 04/25/17 14:01 Family History Father was an alcoholic Mom passed from alzheimer's Social History 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[place], [place]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 [place] Denies tobacco, ETOH abuse Physical Exam Vital Signs Vital Signs Date Time Temp Pulse Resp B/P (MAP) Pulse Ox O2 Delivery O2 Flow Rate FiO2 04/25/17 09:12 98.0 59 20 146/82 (103) 98 04/25/17 08:00 96 Room Air 04/25/17 08:00 62 04/25/17 04:00 Room Air 04/25/17 04:00 53 04/25/17 04:00 98.2 51 18 115/59 (77) 98 04/25/17 00:00 98.3 48 20 133/64 (87) 98 04/25/17 00:00 Room Air 04/24/17 23:48 48 04/24/17 20:00 Room Air 04/24/17 20:00 98.3 56 20 133/64 (87) 98 04/24/17 19:55 61 04/24/17 18:25 54 04/24/17 18:00 97.7 53 18 155/72 (99) 99 04/24/17 17:30 04/24/17 17:30 53 16 157/73 (101) 99 Room Air 148/71 (96) 04/24/17 13:07 60 16 144/69 (94) 99 Room Air 04/24/17 12:41 99 Room Air 04/24/17 12:40 62 16 99 Room Air 04/24/17 12:24 98.2 59 16 198/86 (123) 99 Physical Exam GENERAL: This is a well-nourished, well-developed patient, in no apparent distress. SKIN: No rashes, ecchymoses or lesions. Cool and dry. HEAD: Atraumatic. Normocephalic. No temporal or scalp tenderness. EYES: Pupils equal round and reactive. Extraocular motions intact. No scleral icterus. No injection or drainage. ENT: Nose without bleeding, purulent drainage or septal hematoma. Throat without erythema, tonsillar hypertrophy or exudate. Uvula midline. Airway patent. NECK: Trachea midline. No JVD or lymphadenopathy. Supple, nontender, no meningeal signs. CARDIOVASCULAR: Regular rate and rhythm without murmurs, gallops, or rubs. RESPIRATORY: Clear to auscultation. Breath sounds equal bilaterally. No wheezes , rales, or rhonchi. GASTROINTESTINAL: Abdomen soft, non-tender, nondistended. No hepato-splenomegaly , or palpable masses. No guarding. MUSCULOSKELETAL: Extremities without clubbing, cyanosis, or edema. No joint tenderness, effusion, or edema noted. No calf tenderness. Negative Homans sign bilaterally. NEUROLOGICAL: Awake and alert. Cranial nerves II through XII intact. Motor and sensory grossly within normal limits. Five out of 5 muscle strength in all muscle groups. Normal speech. Laboratory Laboratory Tests Test 04/24/17 12:45 04/24/17 17:05 04/25/17 01:17 04/25/17 04:32 White Blood Count 9.6 Red Blood Count 5.74 Hemoglobin 19.0 Hematocrit 53.4 Mean Corpuscular Volume 93.1 Mean Corpuscular Hemoglobin 33.0 Mean Corpuscular Hemoglobin Concent 35.5 Red Cell Distribution Width 13.4 Platelet Count 181 Mean Platelet Volume 8.7 Neutrophils (%) (Auto) 75.3 Lymphocytes (%) (Auto) 15.6 Monocytes (%) (Auto) 7.6 Eosinophils (%) (Auto) 0.8 Basophils (%) (Auto) 0.7 Neutrophils # (Auto) 7.2 Lymphocytes # (Auto) 1.5 Monocytes # (Auto) 0.7 Eosinophils # (Auto) 0.1 Basophils # (Auto) 0.1 CBC Comment DIFF FINAL Differential Comment Prothrombin Time 11.2 Prothromb Time International Ratio 1.1 Activated Partial Thromboplast Time 23.5 35.5 Blood Urea Nitrogen 25 Creatinine 1.35 Random Glucose 94 Total Protein 7.5 Albumin 3.4 Calcium Level 9.4 Magnesium Level 2.4 Alkaline Phosphatase 60 Aspartate Amino Transf (AST/SGOT) 46 Alanine Aminotransferase (ALT/SGPT) 44 Total Bilirubin 0.9 Sodium Level 138 Potassium Level 4.1 Chloride Level 104 Carbon Dioxide Level 25.7 Anion Gap 8 Estimat Glomerular Filtration Rate 52 Total Creatine Kinase 568 Creatine Kinase MB 7.7 Creatine Kinase MB % 1.4 Troponin I 0.07 1.26 0.82 Result Diagram: 04/24/17 1245 04/24/17 1245 Imaging Last Impressions Chest X-Ray 04/24/17 1239 Signed Impressions: Service Date/Time: Monday, April 24, 2017 12:55 - CONCLUSION: 1. No acute cardiopulmonary disease. Genaro Bragg MD Course s/p [facility] this morning - denies chest pain Assessment and Plan Problem List: (1) NSTEMI, initial episode of care ICD Codes: I21.4 - Non-ST elevation (NSTEMI) myocardial infarction Status: Acute (2) CAD (coronary artery disease) ICD Codes: I25.10 - Atherosclerotic heart disease of [place] coronary artery without angina pectoris (3) Chest pain ICD Codes: R07.9 - Chest pain, unspecified Assessment and Plan 71y/o male presents with NSTEMI and 3 vessel CAD. CABG recommended with targets to LAD, D1, OM, PDA. Risks and benefits discussed and he agrees to proceed. Problem Qualifiers (1) CAD (coronary artery disease): Qualified Codes: I25.110 - Atherosclerotic heart disease of [place] coronary artery with unstable angina pectoris (2) Chest pain: Qualified Codes: I20.0 - Unstable angina Madyson Quezada MD Apr 25, 2017 12:17
[2017-04-25] MEDS ORDERED: CHLORHEXIDINE GLUCONATE 4% SOLN 120 ML BTL TOPICAL SCH (12:45)
[2017-04-25] MEDS ORDERED: INSULIN REGULAR (IV INFUSION) 100 UNITS in SODIUM CHLORIDE 0.9% INJ 99 ML IV PRN (12:45)
[2017-04-25] MEDS ORDERED: ceFAZolin 2 GM PREMIX 50 ML IV SCH (12:45)
[2017-04-25] MEDS ORDERED: CEFAZOLIN INJ 500 MG in SODIUM CHLORIDE 0.9% IRR BTL 500 ML IRRIGATION SCH (12:45)
[2017-04-25] MEDS ORDERED: METOPROLOL TARTRATE 25 MG TAB PO SCH (12:45)
[2017-04-25] MEDS ORDERED: DEXTROSE 50% IN WATER 50 ML VIAL(D50) IV PUSH PRN (12:45)
--- NOTE | 2017-04-25 13:50 | HHI.PR ---
Subjective Remarks Patient seen after heart catheterization which revealed three-vessel disease. Cardiothoracic surgery has been consulted. Currently reports he is feeling well. Denies chest pain or shortness of breath. Objective Vitals Vital Signs Date Time Temp Pulse Resp B/P (MAP) Pulse Ox O2 Delivery O2 Flow Rate FiO2 04/25/17 12:31 99 21 04/25/17 09:12 98.0 59 20 146/82 (103) 98 04/25/17 08:00 96 Room Air 04/25/17 08:00 62 04/25/17 04:00 Room Air 04/25/17 04:00 53 04/25/17 04:00 98.2 51 18 115/59 (77) 98 04/25/17 00:00 98.3 48 20 133/64 (87) 98 04/25/17 00:00 Room Air 04/24/17 23:48 48 04/24/17 20:00 Room Air 04/24/17 20:00 98.3 56 20 133/64 (87) 98 04/24/17 19:55 61 04/24/17 18:25 54 04/24/17 18:00 97.7 53 18 155/72 (99) 99 04/24/17 17:30 04/24/17 17:30 53 16 157/73 (101) 99 Room Air 148/71 (96) I/O 04/24/17 04/24/17 04/24/17 04/25/17 04/25/17 04/25/17 07:00 15:00 23:00 07:00 15:00 23:00 Intake Total 0 ml 1000 ml Balance 0 ml 1000 ml Intake Oral 0 ml IV Total 1000 ml # Voids 2 # Bowel Movements 0 Result Diagram: 04/24/17 1245 04/24/17 1245 Objective Remarks GENERAL: This is a well-nourished, well-developed patient, in no apparent distress. CARDIOVASCULAR: Normal rate and regular rhythm without murmurs, gallops, or rubs. RESPIRATORY: Good respiratory efforts. Breath sounds equal and clear to auscultation bilaterally. GASTROINTESTINAL: Abdomen soft, non-tender, non-distended. Normal active bowel sounds MUSCULOSKELETAL: Extremities without cyanosis, or edema. NEURO: Alert & Oriented x4 to person, place, time, situation. Moves all ext x4 PSYCH: Appropriate mood and affect. A/P Problem List: (1) Chest pain ICD Code: R07.9 - Chest pain, unspecified (2) Polycythemia ICD Code: D75.1 - Secondary polycythemia (3) NSTEMI (non-ST elevation myocardial infarction) ICD Code: I21.4 - Non-ST elevation (NSTEMI) myocardial infarction (4) CAD (coronary artery disease) ICD Code: I25.10 - Atherosclerotic heart disease of [place] coronary artery without angina pectoris Assessment and Plan 71-year-old male who presented with chest pain. Patient had a non-ST elevation IA. He has three-vessel disease on heart catheterization. Plan for CABG. NSTEMI: Discussed with Dr. Dean of cardiology today. Patient had three- vessel disease on heart catheterization. Cardiovascular surgery evaluated the patient and planning for CABG tomorrow morning. - Heparin bolus and resume drip per protocol 4 hrs after Cath per Cardiology recs - 2D echo, Carotid US pending. Check lipids. Elevated BP- no history of hypertension. Probably related to above. - Continue to monitor. Clonidine as needed. Dehydration- - continue IV fluid. Recheck labs in a.m. Acute renal insufficiency: Likely combination of prerenal azotemia from IA and dehydration. Expect improvement. - Follow-up labs in AM. 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 Elevated AST: - Mild. Likely secondary to heart issues above. Expect improvement on tomorrow 's lab. If not better, will consider further workup. DVT prophylaxis: On heparin. Problem Qualifiers (1) Chest pain: Qualified Codes: I20.0 - Unstable angina (2) CAD (coronary artery disease): Qualified Codes: I25.110 - Atherosclerotic heart disease of [place] coronary artery with unstable angina pectoris Robbie Milan MD Apr 25, 2017 13:49
[2017-04-25] MEDS ORDERED: HEPARIN SODIUM - IV 2,000 UNITS/2 ML VIAL IV ONE (14:00)
[2017-04-25 14:01] LABS: BILIRUBIN, URINE NEG (NEG); BLOOD, URINE NEG (NEG); GLUCOSE,URINE NEG (NEG); KETONE, URINE TRACE mg/dL (NEG); MUCUS URINE FEW /lpf (OCC); NITRITE,URINE NEG (NEG); PH, URINE 7.5 (5.0-8.5); URINE COLOR LIGHT-YELLOW (YELLW/STRAW); URINE LEUKOCYTE ESTERASE NEG (NEG)
--- NOTE | 2017-04-25 15:35 | EKG ---
Date Performed: 04/24/2017 Time Performed: 22:46:52 PTAGE: 71 years EKG: SINUS BRADYCARDIA MARKED LEFT AXIS DEVIATION INCOMPLETE RIGHT BUNDLE BRANCH BLOCK Since pre vious tracing, no significant change noted ABNORMAL ECG PREVIOUS TRACING : 04/24/2017 17.29 DOCTOR: Jaden Dean Interpretating Date/Time 04/25/2017 15:34:42
--- NOTE | 2017-04-25 15:35 | EKG ---
Date Performed: 04/24/2017 Time Performed: 17:29:34 PTAGE: 71 years EKG: SINUS BRADYCARDIA MARKED LEFT AXIS DEVIATION INCOMPLETE RIGHT BUNDLE BRANCH BLOCK LEFT VENT RICULAR HYPERTROPHY AND ST-T CHANGE ABNORMAL ECG NO PREVIOUS TRACING DOCTOR: Jaden Dean Interpretating Date/Time 04/25/2017 15:34:13
--- NOTE | 2017-04-25 15:38 | RADRPT ---
EXAM DATE/TIME: 04/25/2017 14:30 [facility] COMPARISON: No previous studies available for comparison. INDICATIONS : Preop cardiac surgery. MEDICAL HISTORY : Chest pain. SURGICAL HISTORY : Hernia repair. Fusion of C1-C2. Cardiac cath. ENCOUNTER: Initial ACUITY: 1 day PAIN SCORE: 3/10 LOCATION: Bilateral leg. TECHNIQUE: Venous ultrasound of the left and right leg was performed from the inguinal ligament to the proximal calf. Real-time, color Doppler and spectral tracing, compression and augmentation techniques were us ed. FINDINGS: RIGHT LEG: There is normal compressibility of the deep venous system from the inguinal region to the proximal ca lf. No echogenic clot is seen in the lumen of the common femoral, femoral, popliteal, and posterior tibial veins. There is a normal response of the venous system to proximal and distal augmentation an d respiration. LEFT LEG: There is normal compressibility of the deep venous system from the inguinal region to the proximal ca lf. No echogenic clot is seen in the lumen of the common femoral, femoral, popliteal, and posterior tibial veins. There is a normal response of the venous system to proximal and distal augmentation an d respiration. CONCLUSION: Normal examination. John Dolan MD on April 25, 2017 at 15:36 Board Certified Radiologist. This report was verified electronically.
--- NOTE | 2017-04-25 15:47 | RADRPT ---
EXAM DATE/TIME: 04/25/2017 14:01 [facility] COMPARISON: No previous studies available for comparison. INDICATIONS : Stenosis. MEDICAL HISTORY : Chest pain. SURGICAL HISTORY : Hernia repair. Fusion of C1-C2. Cardiac cath. ENCOUNTER: Initial ACUITY: 1 day PAIN SCORE: 3/10 LOCATION: Bilateral neck PEAK SYSTOLIC VELOCITIES (cm/sec): ICA/CCA RATIO: Right: 1.0 Left: 0.8 ICA: Right: 98.1 Left: 83.8 CCA: Right: 103.2 Left: 107.0 ECA: Right: 188.0 Left: 167.4 VERTEBRAL: Right: 56.0 antegrade Left: 39.4 antegrade Elevated flow velocities and ICA/CCA ratios have been found to correlate with increased degrees of vessel stenosis, calculated as percentage of diameter relative to a normal segment of distal ICA/CCA FINDINGS: RIGHT CAROTID: No significant stenosis is visualized. Mild plaque in the common carotid bifurcation The waveforms ar e within normal limits. LEFT CAROTID: No significant stenosis is visualized. The waveforms are within normal limits. VERTEBRAL ARTERIES: Antegrade flow is seen in both vertebral arteries. MISCELLANEOUS: None. CONCLUSION: No two-dimensional stenosis identified. Moderate plaque in the right internal carotid origin. John Dolan MD on April 25, 2017 at 15:45 Board Certified Radiologist. This report was verified electronically.
[2017-04-25 16:19] LABS: AUTOMATED NEUTROPHIL # 7.4 TH/MM3 (1.8-7.7); BASOPHIL % 0.4 % (0.0-2.0); EOSINOPHIL # 0.1 TH/MM3 (0-0.4); EOSINOPHIL % 0.8 % (0.0-4.0); HEMATOCRIT 50.9 % (39.0-51.0); HEMOGLOBIN 18.2 GM/DL (13.0-17.0); LYMPH % 15.4 % (9.0-44.0); LYMPHOCYTE # 1.5 TH/MM3 (1.0-4.8); MEAN CELL VOLUME 93.9 FL (80.0-100.0); MEAN CORPUSCULAR HEMOGLOBIN 33.5 PG (27.0-34.0); MEAN CORPUSCULAR HGB CONC 35.6 % (32.0-36.0); MEAN PLATELET VOLUME 8.1 FL (7.0-11.0); MONO % 6.4 % (0.0-8.0); MONOCYTE # 0.6 TH/MM3 (0-0.9); PLATELET COUNT 153 TH/MM3 (150-450); RED BLOOD COUNT 5.42 MIL/MM3 (4.50-5.90); RED CELL DISTRIBUTION WIDTH 13.4 % (11.6-17.2); WHITE BLOOD COUNT 9.6 TH/MM3 (4.0-11.0)
[2017-04-25 16:33] LABS: INTERNATIONAL NORMALIZED RATIO 1.1 RATIO; PROTHROMBIN TIME - PATIENT 11.4 SEC (9.8-11.6)
[2017-04-25 16:49] LABS: CHOLESTEROL/ HDL RATIO 6.56 RATIO; HDL CHOLESTEROL 26.2 MG/DL (40.0-60.0)
[2017-04-25 16:51] LABS: BICARBONATE 30.4 MEQ/L (21.0-32.0); CALCIUM 8.1 MG/DL (8.5-10.1); CREATININE 1.11 MG/DL (0.60-1.30)
[2017-04-25] MEDS: HEPARIN 25,000 UNITS-D5W 250 ML - PREMIX IV PRN (17:12)
[2017-04-25] MEDS: SODIUM CHLORIDE 0.9% FLUSH 10 ML FLUSH IV FLUSH SCH (21:00)
[2017-04-25] MEDS ORDERED: SODIUM CHLORIDE 0.9% FLUSH 10 ML FLUSH IV FLUSH SCH (21:00)
[2017-04-26] VITALS (12 sets, daily range): BP systolic 82–161; BP diastolic 48–86; PULSE 52–75; RESP 12–20; TEMP 97.3–98.8; O2SAT 93–99
[2017-04-26] MEDS ORDERED: POVIDONE IODINE 5% (ANTISEPSIS KIT) 4 APPLICATIONS EACH NARE PRN (00:45)
[2017-04-26] MEDS ORDERED: INSULIN HUMAN REGULAR 1,000 UNITS/10 ML VIAL SQ PRN (00:45)
[2017-04-26] MEDS ORDERED: CHLORHEXIDINE GLUCONATE 2 % 1 PACK (2 CLOTHS) TOPICAL PRN (00:45)
[2017-04-26] MEDS ORDERED: SODIUM CHLORID 0.9% 500 ML IV PRN (00:45)
[2017-04-26] MEDS ORDERED: METOPROLOL TARTRATE 25 MG TAB PO PRN (00:45)
[2017-04-26] MEDS ORDERED: LACTATED RINGER'S 1000 ML IV PRN (00:45)
[2017-04-26 04:18] LABS: AUTOMATED NEUTROPHIL # 5.5 TH/MM3 (1.8-7.7); BASOPHIL # 0.1 TH/MM3 (0-0.2); BASOPHIL % 0.8 % (0.0-2.0); EOSINOPHIL # 0.1 TH/MM3 (0-0.4); EOSINOPHIL % 1.6 % (0.0-4.0); HEMATOCRIT 50.5 % (39.0-51.0); HEMOGLOBIN 17.8 GM/DL (13.0-17.0); LYMPH % 19.6 % (9.0-44.0); LYMPHOCYTE # 1.5 TH/MM3 (1.0-4.8); MEAN CELL VOLUME 93.5 FL (80.0-100.0); MEAN CORPUSCULAR HGB CONC 35.3 % (32.0-36.0); MEAN PLATELET VOLUME 8.6 FL (7.0-11.0); MONOCYTE # 0.6 TH/MM3 (0-0.9); PLATELET COUNT 151 TH/MM3 (150-450); RED CELL DISTRIBUTION WIDTH 13.2 % (11.6-17.2); WHITE BLOOD COUNT 7.9 TH/MM3 (4.0-11.0)
[2017-04-26 04:45] LABS: BICARBONATE 27.8 MEQ/L (21.0-32.0); CALCIUM 8.4 MG/DL (8.5-10.1); CREATININE 1.03 MG/DL (0.60-1.30)
[2017-04-26 04:49] LABS: CHOLESTEROL/ HDL RATIO 5.29 RATIO; HDL CHOLESTEROL 29.3 MG/DL (40.0-60.0)
--- NOTE | 2017-04-26 07:34 | RADRPT ---
EXAM DATE/TIME: 04/25/2017 15:03 [facility] COMPARISON: No previous studies available for comparison. INDICATIONS : Preop cardiac surgery. MEDICAL HISTORY : Chest pain. SURGICAL HISTORY : Hernia repair. Fusion of C1-C2. Cardiac cath. ENCOUNTER: Initial ACUITY: 1 day PAIN SCORE: 3/10 LOCATION: Bilateral leg. GREATER SAPHENOUS VEIN THIGH: PROXIMAL: Right 5 mm Left 4 mm MID: Right 1 mm Left 2 mm DISTAL: Right 2 mm Left 2 mm CALF: PROXIMAL: Right 1 mm Left 1 mm MID: Right 1 mm Left 1 mm DISTAL: Right 1 mm Left 1 mm FINDINGS: The venous system of the lower extremities are patent by color Doppler imaging. Measurements of the leg veins (in mm) are listed above. CONCLUSION: No SVT. GSV measurements as detailed above. Both are quite small in diameter throughout. Taran Hernandez Jr., MD on April 26, 2017 at 7:30 Board Certified Radiologist. This report was verified electronically.
[2017-04-26] MEDS ORDERED: IOHEXOL 350 MG/ML 50 ML BTL (for Cath Lab) OTHER ONE (08:15)
[2017-04-26] MEDS: ASPIRIN 325 MG TAB PO SCH (09:00)
[2017-04-26] MEDS: DOCUSATE SODIUM 50 MG/SENNA 8.6 MG TAB PO SCH ×2 (09:00→20:38)
[2017-04-26] MEDS: SODIUM CHLORIDE 0.9% FLUSH 10 ML FLUSH IV FLUSH SCH ×2 (09:00→20:38)
[2017-04-26] MEDS: SODIUM CHLOR 0.9% 1000 ML INJ 1,000 ML IV SCH ×2 (09:45→16:37)
--- NOTE | 2017-04-26 09:47 | ECHRPT ---
Indication: coronary atherosclerosis, preop CONCLUSIONS Normal left ventricular size. Mild concentric left ventricular hypertrophy. The left ventricular systolic function is normal with an estimated ejection fraction in the range of 55-60%. Normal wall motion. Trace to mild mitral valve regurgitation. Mild to moderate aortic valve sclerosis is present. Trace aortic valve regurgitation. There is trace tricuspid valve regurgitation. The estimated pulmonary arterial pressure is 43 mmHg. BP: / HR: Rhythm: MEASUREMENTS (Male / Female) Normal Values Technical Quality:Good 2D ECHO LV Diastolic Diameter PLAX 4.6 cm 4.2 - 5.9 / 3.9 - 5.3 cm LV Systolic Diameter PLAX 3.7 cm IVS Diastolic Thickness 1.2 cm 0.6 - 1.0 / 0.6 - 0.9 cm LVPW Diastolic Thickness 0.8 cm 0.6 - 1.0 / 0.6 - 0.9 cm LV Relative Wall Thickness 0.4 RV Internal Dim ED PLAX 2.0 cm LA Systolic Diameter LX 4.0 cm 3.0 - 4.0 / 2.7 - 3.8 cm M-MODE Aortic Root Diameter MM 3.3 cm AV Cusp Separation MM 1.8 cm DOPPLER AV Peak Velocity 213.0 cm/s AV Peak Gradient 18.1 mmHg AV Mean Gradient 8.0 mmHg AV Velocity Time Integral 43.3 cm LVOT Peak Velocity 117.0 cm/s LVOT Peak Gradient 5.5 mmHg LVOT Velocity Time Integral 25.3 cm Mitral E Point Velocity 79.0 cm/s Mitral A Point Velocity 79.5 cm/s Mitral E to A Ratio 1.0 TR Peak Velocity 309.0 cm/s TR Peak Gradient 38.2 mmHg FINDINGS LEFT VENTRICLE Normal left ventricular size. Mild concentric left ventricular hypertrophy. The left ventricular systolic function is normal with an estimated ejection fraction in the range of 55-60%. Normal wall motion. RIGHT VENTRICLE Normal right ventricular size and systolic function. LEFT ATRIUM The left atrial size is normal. RIGHT ATRIUM The right atrial size is normal. ATRIAL SEPTUM Normal atrial septal thickness without atrial level shunting by limited color doppler interrogation. AORTA The aortic root and proximal ascending aorta are normal in size on limited imaging. MITRAL VALVE Trace to mild mitral valve regurgitation. AORTIC VALVE Mild to moderate aortic valve sclerosis is present. Trace aortic valve regurgitation. TRICUSPID VALVE There is trace tricuspid valve regurgitation. The estimated pulmonary arterial pressure is 43 mmHg. PULMONARY VALVE The pulmonary valve is not well visualized. VESSELS The inferior vena cava is normal in size. PERICARDIUM No pericardial effusion. Jourdan Zuñiga MD (Electronically Signed) Final Date:26 April 2017 09:46
--- NOTE | 2017-04-26 10:26 | MA ---
cc: SAM SALAS M.D. DATE: 04/25/2017 PROCEDURE PERFORMED Left heart catheterization, left ventriculography, coronary angiography. INDICATIONS Non-STEMI coronary disease. PROCEDURE The patient was brought to the cardiac catheterization laboratory, prepped and draped in the usual sterile fashion. 10 ccs of 1% lidocaine was used to locally anesthetize the right common femoral artery. A 4-Scottish sheath was successfully placed in the right common femoral artery. A 4-Scottish JR-4, JL-4 catheter were used to perform left and right coronary angiography, left ventriculography. FINDINGS The LV pressures were 140/1-5. Ejection fraction 55-60%. The right coronary artery is dominant. It has a long 90% stenosis in the proximal mid segment with a slight friedman's crook, it is tortuous after this lesion. The distal lesion vessel has a 50-60% stenosis. The right LOYDA has an ostial proximal 40-50% stenosis. Right PDA has a proximal mid 30-40% stenosis. PDA reference vessel diameter is approximately 2.5-2.75 mm. LOYDA reference vessel diameter is approximately 25-2.5 mm in diameter. The left main coronary artery has no significant disease angiographically. The left circumflex vessel has 20% stenosis in the AV groove and gives off a large first obtuse marginal vessel which has a high takeoff. It has a long 95% stenosis in the proximal midsegment. Reference vessel diameter in the mid to distal vessel is at least 3 mm in diameter. Second obtuse marginal vessel also has a proximal 95% stenosis and a mid 95% stenosis. Reference vessel diameter is probably 275-3 mm in diameter. LAD is a large transapical vessel which has diffuse disease in the ostial proximal segment up to 60-70% angiographically, then a focal 95% stenosis, then in the mid segment 80% stenosis followed by another focal 90% stenosis. Reference vessel diameter in the distal vessel is at least 3 mm in diameter. The first diagonal artery is a small 0.5-1 mm vessel with 95% diffuse disease in the ostial proximal segment. The second diagonal artery is a small vessel again, 1.5-3 mm reference vessel diameter ostial 30% stenosis. CONCLUSION 1. Severe diffuse three-vessel coronary artery disease and a right-dominant system as detailed above. 2. Preserved LV systolic function, ejection fraction 60%. I have recommended CABG to the patient. I have explained to him that multivessel PCI would be relatively high risk for stent thrombosis given the length of stent required to stent the LAD right, and circ, and the fact that he has polycythemia and also takes testosterone. I have explained to him the results of the syntax trial which compare CABG to multivessel stenting with a 9% relative risk increase of revascularization in the PCI arm and 2% stroke risk in the CABG arm. The patient is currently undecided. At this point in time, we pulled the sheath, will restart heparin bolus and drip in 4 hours. I am going to get a CT surgery consult. I have spoken to Dr. Alva on the phone, described the angiogram over the phone. The patient is currently asymptomatic. I will order a 2-D echo, carotid ultrasound. The patient's AST is elevated, therefore statins are relatively contraindicated. Will continue aspirin, beta rayshawn is being held due to bradycardia. I have requested a bed in the CVICU. Further recommendations based on the CT surgery consult and the patient's preferences. MD OLIVIA Vargas/ERIC /9:55 AM /10:01 AM
[2017-04-26] MEDS ORDERED: HEPARIN SODIUM - SQ 10,000 UNITS/ML VIAL ONE ×2 (10:56→11:09)
[2017-04-26] MEDS ORDERED: methylPREDNISolone SOD SUCC 125 MG/2 ML VIAL ONE (10:56)
[2017-04-26] MEDS ORDERED: VANCOMYCIN HCL 1000 MG VIAL ONE (10:56)
[2017-04-26] MEDS ORDERED: ceFAZolin 2 GM PREMIX 50 ML ONE (10:56)
[2017-04-26] MEDS ORDERED: CARDIOPLEGIC IRR 2,000 ML ONE (11:07)
[2017-04-26] MEDS ORDERED: POTASSIUM CHLORIDE 40 MEQ/20 ML VIAL ONE (11:08)
[2017-04-26] MEDS ORDERED: ALBUMIN 25% INJ 50 ML IV ONE (11:08)
[2017-04-26] MEDS ORDERED: MANNITOL INJ 100 ML ONE (11:08)
[2017-04-26] MEDS ORDERED: HEPARIN SODIUM - IV 10,000 UNITS/10 ML VIAL ONE (11:09)
[2017-04-26] MEDS ORDERED: NS 100 ML (PAB BAG) 200 ML IV ONE (12:00)
[2017-04-26] MEDS ORDERED: NORMOSOL R INJ 1,000 ML IV ONE (12:00)
[2017-04-26] MEDS ORDERED: VECURONIUM BROMIDE 10 MG VIAL IV ONE (12:00)
[2017-04-26] MEDS ORDERED: SODIUM CHLOR 0.9% 250 ML INJ 500 ML IV ONE (12:00)
[2017-04-26] MEDS ORDERED: SODIUM BICARBONATE 8.4% INJ 50 MEQ/50 ML SYR IV ONE (12:00)
[2017-04-26] MEDS ORDERED: ePHEDrine/NS 25 MG/5 ML SYRINGE IV ONE (12:00)
[2017-04-26] MEDS ORDERED: ARTIFICIAL TEARS OPTH OINT 3.5 APPLIC/3.5 GM TUBO EACH EYE ONE (12:00)
[2017-04-26] MEDS ORDERED: AMINOCAPROIC ACID INJ 250 MG/ML 20 ML VIAL IV ONE (12:00)
[2017-04-26] MEDS ORDERED: CALCIUM CHLORIDE 10% SOLN 1 GRAM/10 ML SYR IV ONE (12:00)
[2017-04-26] MEDS ORDERED: MAGNESIUM SULFATE 1 GM/2 ML VIAL IV ONE (12:00)
[2017-04-26] MEDS ORDERED: HEPARIN SODIUM - SQ 10,000 UNITS/ML VIAL OTHER ONE (12:00)
[2017-04-26] MEDS ORDERED: DEXMEDETOMIDINE HCL 200 MCG/2 ML VIAL IV ONE (12:00)
[2017-04-26] MEDS ORDERED: PHENYLEPH/NS 1000 MCG/10 ML SYR IV ONE (12:00)
[2017-04-26] MEDS ORDERED: PHENYLEPHRINE HCL 10 MG/ML VIAL IV ONE (12:00)
[2017-04-26] MEDS ORDERED: LACTATED RINGER'S 1000 ML INJ 2,000 ML IV ONE (12:00)
[2017-04-26] MEDS ORDERED: PROTAMINE SULFATE 250 MG/25 ML VIAL IV ONE (12:00)
[2017-04-26] MEDS ORDERED: FUROSEMIDE 100 MG/10 ML VIAL IV ONE (12:00)
[2017-04-26] MEDS ORDERED: GLYCOPYRROLATE 0.4 MG/2 ML VIAL ONE (12:38)
--- NOTE | 2017-04-26 13:13 | PD.CAR.PN ---
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 He recently began experiencing intrascapular pain, bilateral shoulder pain and developed severe chest pain while driving with his today. He had to machine puller over and have his drive the care to the ER. He denies shortness of breath, fevers, chills, cough, GI or bleeding, paroxysmal nocturnal dyspnea, orthopnea, syncope or dizziness. Found to have elevated trop 1.26. polycythemia and HTN ? 04/09 use of testosterone cardiac cath : 1. Severe diffuse three-vessel coronary artery disease and a right-dominant Preserved LV systolic function, ejection fraction 60%. PAST MEDICAL HISTORY history of a hernia repair, use of testosterone 04/26 for surgery today Objective: Vital Signs Date Time Temp Pulse Resp B/P (MAP) Pulse Ox O2 Delivery O2 Flow Rate FiO2 04/26/17 07:20 98.8 55 16 161/86 (111) 98 04/26/17 07:20 55 04/26/17 07:19 98 Room Air 04/26/17 03:10 52 04/26/17 03:10 98.2 53 15 158/84 (108) 96 04/26/17 03:10 96 Room Air 04/26/17 00:13 93 Room Air 04/26/17 00:13 98.0 74 15 126/72 (90) 93 04/26/17 00:13 56 04/25/17 19:18 98.2 60 16 168/77 (107) 99 04/25/17 19:18 99 Room Air 04/25/17 19:18 99 21 04/25/17 19:00 60 04/25/17 15:00 98 Room Air 04/25/17 15:00 98.3 65 16 138/66 (90) 94 04/25/17 13:00 98.1 62 16 163/81 (108) 98 Labs: Laboratory Tests Test 04/26/17 03:24 White Blood Count 7.9 TH/MM3 (4.0-11.0) Red Blood Count 5.40 MIL/MM3 (4.50-5.90) Hemoglobin 17.8 GM/DL (13.0-17.0) Hematocrit 50.5 % (39.0-51.0) Mean Corpuscular Volume 93.5 FL (80.0-100.0) Mean Corpuscular Hemoglobin 33.0 PG (27.0-34.0) Mean Corpuscular Hemoglobin Concent 35.3 % (32.0-36.0) Red Cell Distribution Width 13.2 % (11.6-17.2) Platelet Count 151 TH/MM3 (150-450) Mean Platelet Volume 8.6 FL (7.0-11.0) Neutrophils (%) (Auto) 70.0 % (16.0-70.0) Lymphocytes (%) (Auto) 19.6 % (9.0-44.0) Monocytes (%) (Auto) 8.0 % (0.0-8.0) Eosinophils (%) (Auto) 1.6 % (0.0-4.0) Basophils (%) (Auto) 0.8 % (0.0-2.0) Neutrophils # (Auto) 5.5 TH/MM3 (1.8-7.7) Lymphocytes # (Auto) 1.5 TH/MM3 (1.0-4.8) Monocytes # (Auto) 0.6 TH/MM3 (0-0.9) Eosinophils # (Auto) 0.1 TH/MM3 (0-0.4) Basophils # (Auto) 0.1 TH/MM3 (0-0.2) CBC Comment DIFF FINAL Differential Comment Activated Partial Thromboplast Time 39.6 SEC (24.3-30.1) Blood Urea Nitrogen 12 MG/DL (7-18) Creatinine 1.03 MG/DL (0.60-1.30) Random Glucose 85 MG/DL (74-106) Calcium Level 8.4 MG/DL (8.5-10.1) Sodium Level 140 MEQ/L (136-145) Potassium Level 4.0 MEQ/L (3.5-5.1) Chloride Level 106 MEQ/L (98-107) Carbon Dioxide Level 27.8 MEQ/L (21.0-32.0) Anion Gap 6 MEQ/L (5-15) Estimat Glomerular Filtration Rate 71 ML/MIN (>89) Triglycerides Level 98 MG/DL (42-150) Cholesterol Level 155 MG/DL (120-200) LDL Cholesterol 106 MG/DL (0-99) HDL Cholesterol 29.3 MG/DL (40.0-60.0) Cholesterol/HDL Ratio 5.29 RATIO Result Diagram: 04/26/174 04/26/17323 (1) CAD (coronary artery disease) (2) NSTEMI (non-ST elevation myocardial infarction) (3) Polycythemia (4) S/P CABG (coronary artery bypass graft) Problem Qualifiers (1) CAD (coronary artery disease): Qualified Codes: I25.110 - Atherosclerotic heart disease of kash[place] coronary artery with unstable angina pectoris Francine Abreu Apr 26, 2017 13:12
--- NOTE | 2017-04-26 13:15 | HHI.FF ---
Face to Face Verification Diagnosis: (1) NSTEMI, initial episode of care (2) Polycythemia (3) CAD (coronary artery disease) (4) NSTEMI (non-ST elevation myocardial infarction) (5) S/P CABG (coronary artery bypass graft) Home Health Nursing Order: Signs/symptoms of disease process Medication education-adverse effect Wound care and dressing changes Nursing assessment with vital signs Instructions: Heart and Vascular Surgery patients *Special attention to sternal dressing Mandatory frequency Assess and evaluation, 4 days in a row The next week 3X week 2 times a week for 4 weeks 1 time a week for 5 weeks Schedule Heart and Vascular patients for full 60 day certification period Initial visit Review Open Heart Surgery Discharge Instructions (Sternal precautions, Activity, Elastic hose, Incision care, Driving, Incentive spirometry, Smoking, [place], Work and other) Need Betadine to paint incision Medication reconciliation Importance of follow up care/ check on appointments Make calendar record temperature daily When to call [facility] nurse, review instructions, phone list Incentive Spirometry, demonstration Visit 1- Begin discharge instruction for patient family and/ or caregiver using teach back method- Signs and symptoms of infection Disease characteristics Medicines and side effects Foods and nutrition/ appetite Infection control/ hand washing/ hygiene Visit 2- Continue teaching Discharge instructions- include additional information on smoking cessation , sternal dressing (sternal vac) Visit 3- Continue teaching- Cough and deep breathing, incision monitoring. Choose my plate Visit 4- Continue teaching- Discuss limitations Discuss how they are feeling Discuss progress toward goals Remaining visits- continue teaching and monitoring PREVENA Single Use Negative Wound Therapy System Caregiver Instruction Sheet 1. A Prevena dressing system was applied to the chest incision during surgery , to promote wound healing. It works via a suction device (negative pressure wound therapy) to remove low to moderate levels of exudate (drainage) and infectious materials. We recommend that the device stay in place for up to seven days, from day of surgery. 2. Day of Surgery__04/26/17 Day of Removal ____05/03/17 3. The dressing should only be removed by a health care clinician. Please arrange removal of device to coincide with Home Health visit and or with Nursing staff at Rehab 4. If skin reddening or irritation of skin occurs, or excessive drainage, please notify the Cardiovascular Surgeons office at [phone]. 5. Light showering is permissible; however the pump should be disconnected and placed in safe location, where it will not get wet. The dressing should not be exposed to direct spray or submerged in water. No bath tub / shower only. Ensure the end of the tubing attached to the dressing is facing down so that water does not enter the top of the tube. 6. To remove Prevena dressing: press purple button to turn off device / remove the suction. Then disconnect the tubing from the pump. The fixation strips should be stretched away from the skin and the dressing lifted at one corner and peeled back until it has been fully removed. 7. After removal, it is ok to shower daily using liquid dial soap and clean wash cloth, rinse and pat dry, and leave incision open to air dry. For any concerns regarding Prevena dressing, and or wounds, please contact Leda Bryant, patient navigator at [phone] or notify the Cardiovascular Surgeons office at [phone]. Incentive spirometry Q1 hr x 10, while awake, also use acapella device hourly whole awake Sternal Breast Bone Precautions: NO pushing or pulling, ( pt must use sternal pillow to support chest with all activities and with coughing ( takes up to 3 months breast bone to heal ) Daily incision care: ok to shower daily, no tub bath. Wash all incisions with liquid dial soap, clean wash cloth to each site, rinse and pat dry. Observe for any signs of infection, such as drainage which is dark yellow, soni, green or foul smelling. Immediately report to the surgeon any drainage from the chest incision, or legs, and for any abnormal drainage from the chest tube sites. Notify surgeon if any temp >101.5 degrees F. When specialty dressing removed/ or if you do not have one, continue to shower daily as above, then rinse and pat incision dry and paint with betadine daily x 5 days. Allow steri strips to fall off if you have any. Avoid lotions, creams, salves, oils, etc. for the first month Please see attached forms for additional instructions regarding post Open Heart specialty wound vacuum dressings. NEVA or Prevena , Dressing to be removed by Nursing staff on __05/03/[address] Quezada patients , please obtain CBC, BMP, PA & Lat CXR in 2 weeks, results to Dr. Quezada ( prescription will be given) ( ) (Tele: [phone]) , F/U appointment: as per DC instructions: PCP in 2 weeks, CV surgeon 2 weeks, Stem Sizer 3-4 weeks For any questions regarding incisions/ dressing / meds / post op care or above Symptoms, Wednesday 8am-5pm Heart & Vascular Surgery Office ( Dr. Sorto & Dr. Quezada), After Hours / Nights (5pm -8am) Weekends and Holidays Please call [facility] Card[facility] Unit ([facility]) Charge Nurse I have seen patient Yeison Desir on 04/26/17. My clinical findings support the need for the requested home health care services because: Deconditioned w/ increased weakness I certify that my clinical findings support that this patient is homebound because: Post-op weakness Francine Abreu Apr 26, 2017 13:15
[2017-04-26] MEDS: PAPAVERINE INJ 60 MG, NITROGLYCERIN INJ 100 MCG, DILTIAZEM INJ 100 MG in SODIUM CHLORID... IRRIGATION SCH ×2 (13:33→13:49)
[2017-04-26] MEDS ORDERED: RESP: RACEPINEPHRINE 2.25% 0.5 ML NEB NEB PRN (15:45)
[2017-04-26] MEDS ORDERED: SODIUM BICARBONATE 8.4% SOLN 50 MEQ/50 ML VIAL IV PUSH PRN ×2 (15:45)
[2017-04-26] MEDS ORDERED: SODIUM CHLORIDE 0.9% FLUSH 10 ML FLUSH IV FLUSH PRN (15:45)
[2017-04-26] MEDS ORDERED: Post-op Orders (for Pharmacy) OTHER ONE (15:45)
[2017-04-26] MEDS ORDERED: POTASSIUM CHLORIDE 20 MEQ CONTROLLED RELEASE TAB PO PRN ×2 (15:45)
[2017-04-26] MEDS ORDERED: MAGNESIUM SULFATE INJ 2 GM in SODIUM CHLORIDE 0.9% INJ 100 ML IV PRN ×4 (15:45)
[2017-04-26] MEDS ORDERED: DEXTROSE 50% IN WATER 50 ML VIAL(D50) IV PUSH PRN (15:45)
[2017-04-26] MEDS ORDERED: CALCIUM CHLORIDE 10% 1 GRAM/10 ML VIAL IV PUSH PRN (15:45)
[2017-04-26] MEDS ORDERED: POTASSIUM CHLOR 20 MEQ PREMIX 100 ML IV PRN ×2 (15:45)
[2017-04-26] MEDS ORDERED: CALCIUM CHLORIDE INJ 1 GM in SODIUM CHLORIDE 0.9% INJ 100 ML IV PRN (15:45)
--- NOTE | 2017-04-26 15:50 | PD.OP ---
cc: Jdaen Dean MD; Madyson Quezada MD Operative Report Date of Surgery: Apr 26, 2017 Preoperative Diagnosis: (1) NSTEMI, initial episode of care (2) CAD (coronary artery disease) Postoperative Diagnosis: same Procedure: CABG x 4 [place] to LAD - good SVG to RI - good SVG to OM1 - good SVG to PDA - good EVH Anesthesia: Dr. Myers Surgeon: Madyson Quezada Air Traffic Supervisor(s): Brody LU Operation and Findings: The risks, benefits, complications, treatment options, and expected outcomes were discussed with the patient. The possibilities of reaction to medication, pulmonary aspiration, perforation of viscus, bleeding, recurrent infection, the need for additional procedures, failure to diagnose a condition, and creating a complication requiring transfusion or operation were discussed with the patient. The patient concurred with the proposed plan, giving informed consent. The site of surgery properly noted/marked. The patient was taken to Operating Room, identified as Yeison Desir and the procedure verified as CABG, EVH. A Time Out was held and the above information confirmed. Standard monitoring lines and Garcia catheter were placed. General anesthesia was induced. The patient was prepped and draped in a sterile fashion. A median sternotomy was performed and electrocautery was used to obtain hemostasis. The left internal mammary artery was procured as a pedicle from the 7th rib to the 1st rib in the usual manner. Simultaneously left greater saphenous vein was procured from the left leg using a minimally invasive endoscopic technique. The vein was prepared for anastomosis and the leg wound was irrigated and closed in 2 layers. The pericardium was opened and a pericardial sling was created using interrupted 0 silk sutures. The patient was heparinized for cardiopulmonary bypass and the distal mammary pedicle was instrumented for anastomosis. The heart was instrumented for cardiopulmonary bypass in the usual manner. Antegrade blood cardioplegia was employed. The patient was placed on cardiopulmonary bypass. An aortic cross-clamp was applied and the heart was arrested using cold blood cardioplegia. Antegrade cardioplegia was administered after he each anastomosis. After adequate arrest, the distal right coronary circulation was investigated and the PDA was opened with a [place] blade and found to be a 1.5 millimeter good target. Saphenous vein was approximated to the PDA artery using a running 7 0 Prolene suture. The graft was measured for length and orientation and the proximal anastomosis was constructed to the ascending aorta using a running 5 0 Prolene suture after creating an aortotomy with a 5 millimeter punch. The 1st circumflex marginal artery was then opened with a [place] blade and found to be a 1.5 millimeter good target. The OM1 artery was intramyocardial. Saphenous vein was approximated to the OM1 artery using a running 7 0 Prolene suture. The graft was measured for length and orientation and the proximal anastomosis was constructed to the ascending aorta using a running 5 0 Prolene suture after creating an aortotomy with a 5 millimeter punch. The Ramus Intermedius artery was then opened with a [place] blade and found to be a 1.5 millimeter good target. Saphenous vein was approximated to the RI artery using a running 7 0 Prolene suture. The graft was measured for length and orientation and was suspended from the pericardium. The distal LAD was opened with a [place] blade and found to be a 1.5 millimeter good target. The left internal mammary artery was approximated to the LAD using a running 7 0 Prolene suture. The pedicle was attached to the epicardium using interrupted 5 0 silk suture. The patient was systemically rewarmed and received a hotshot dose of warm blood cardioplegia. The aorta was vented and the proximal anastomosis to the RI graft was accomplished using a running 5 0 Prolene suture after creating an aortotomy was a 5 millimeter punch. The cross-clamp was removed and all proximal and distal anastomoses were examined for hemostasis. Temporary atrial pacing on wires were positioned and brought out through the skin in the usual manner. The patient was weaned from cardiopulmonary bypass. Protamine was given. There was no adverse reaction. Decannulation was carried out without incident. Wound was checked for hemostasis which was obtained using electrocautery. A 36 Algerian mediastinal and 32 Algerian left pleural chest tubes were placed and secured to the skin with 0 silk suture. The sternum was closed with stainless steel wire. The fascia was closed with 1. PDS. The subcutaneous tissue was closed using a running 2-0 Vicryl suture. The skin was closed with 4-0 Monocryl. Sterile dressings were placed. At the end of the operation, all sponge, instruments, and needle counts were correct. The patient was transferred to the CVICU in stable condition. Findings: Diffuse CAD XC: 61 min CPB: 75 min Drains: mediastinal x 1 Complications: none Disposition: To CVICU in stable condition Madyson Quezada MD Apr 26, 2017 15:50
[2017-04-26] MEDS ORDERED: hydrALAZINE HCL 20 MG/ML VIAL IV PUSH PRN (16:00)
[2017-04-26] MEDS ORDERED: RESP: ALBUTEROL 2.5 MG/IPRATROPIUM 0.5 MG NEB (PRN) NEB (16:00)
[2017-04-26] MEDS ORDERED: ONDANSETRON HCL 4 MG/2 ML VIAL IV PUSH PRN (16:00)
[2017-04-26] MEDS ORDERED: ACETAMINOPHEN 325 MG TAB PO PRN (16:00)
[2017-04-26] MEDS ORDERED: ACETAMINOPHEN 650 MG SUPP RECTAL PRN (16:00)
[2017-04-26] MEDS: RESP: ALBUTEROL 2.5 MG/IPRATROPIUM 0.5 MG NEB (SCH) NEB ×2 (16:31→19:49)
[2017-04-26] MEDS ORDERED: fentaNYL CITRATE 1000 MCG/20 ML VIAL ONE (16:38)
[2017-04-26] MEDS ORDERED: MIDAZOLAM HCL 2 MG/2 ML VIAL ONE ×2 (16:39)
[2017-04-26] MEDS ORDERED: DEXMEDETOMIDINE INJ 200 MCG in SODIUM CHLORIDE 0.9% INJ 50 ML IV PRN (17:00)
[2017-04-26] MEDS ORDERED: CLEVIDIPINE INJ 50 ML IV PRN (17:00)
[2017-04-26] MEDS ORDERED: METOPROLOL TARTRATE 5 MG/5 ML VIAL IV PUSH PRN (17:00)
[2017-04-26] MEDS: POTASSIUM CHLOR 20 MEQ PREMIX 100 ML IV PRN ×3 (17:00→19:49)
[2017-04-26] MEDS ORDERED: INSULIN REGULAR (IV INFUSION) 100 UNITS in SODIUM CHLORIDE 0.9% INJ 99 ML IV PRN (17:00)
--- NOTE | 2017-04-26 17:00 | HHI.PR ---
Subjective Remarks Patient seen immediately post operatively in CVICU. PATRICIA RN. He is hemodynamically stable. He is on the ventilator. Objective Vitals Vital Signs Date Time Temp Pulse Resp B/P (MAP) Pulse Ox O2 Delivery O2 Flow Rate FiO2 04/26/17 16:42 97.3 55 12 125/58 (80) 97 04/26/17 16:31 97 50 04/26/17 07:20 98.8 55 16 161/86 (111) 98 04/26/17 07:20 55 04/26/17 07:19 98 Room Air 04/26/17 03:10 52 04/26/17 03:10 98.2 53 15 158/84 (108) 96 04/26/17 03:10 96 Room Air 04/26/17 00:13 93 Room Air 04/26/17 00:13 98.0 74 15 126/72 (90) 93 04/26/17 00:13 56 04/25/17 19:18 98.2 60 16 168/77 (107) 99 04/25/17 19:18 99 Room Air 04/25/17 19:18 99 21 04/25/17 19:00 60 I/O 04/25/17 04/25/17 04/25/17 04/26/17 04/26/17 04/26/17 07:00 15:00 23:00 07:00 15:00 23:00 Intake Total 0 ml 1000 ml 1423 ml 4250 ml Output Total 2000 ml 2900 ml Balance 0 ml 1000 ml -577 ml 1350 ml Intake Oral 0 ml 200 ml IV Total 1000 ml 1223 ml Autotransfusion 750 ml Other 3500 ml Output Urine Total 2000 ml 1400 ml Estimated Blood Loss 1500 ml # Voids 2 # Bowel Movements 0 0 Result Diagram: 04/26/17 0324 04/26/17 0324 Objective Remarks GENERAL: On vent CARDIOVASCULAR: Normal rate and regular rhythm without murmurs, gallops, or rubs. RESPIRATORY: On vent. Breath sounds equal and clear to auscultation bilaterally. GASTROINTESTINAL: Abdomen soft. Normal active bowel sounds MUSCULOSKELETAL: Extremities without cyanosis, or edema. NEURO: Sedated. Calm. A/P Problem List: (1) Chest pain ICD Code: R07.9 - Chest pain, unspecified (2) Polycythemia ICD Code: D75.1 - Secondary polycythemia (3) NSTEMI (non-ST elevation myocardial infarction) ICD Code: I21.4 - Non-ST elevation (NSTEMI) myocardial infarction (4) CAD (coronary artery disease) ICD Code: I25.10 - Atherosclerotic heart disease of [place] coronary artery without angina pectoris Assessment and Plan 71-year-old male who presented with chest pain. Patient had a non-ST elevation NV. He has three-vessel disease on heart catheterization. Plan for CABG. NSTEMI: Patient had three-vessel disease on heart catheterization. Cardiovascular surgery evaluated the patient and underwent CABG. - Post op care per CV surgery - Vent weaning CVICU protocol Elevated BP on arrival- no history of hypertension. - Continue to monitor. Acute renal insufficiency: Likely combination of prerenal azotemia from NV and dehydration. - Improved - Follow-up labs in AM. 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 Hyperlipidemia: Pt. started on Statin DVT prophylaxis: On heparin. Problem Qualifiers (1) Chest pain: Qualified Codes: I20.0 - Unstable angina (2) CAD (coronary artery disease): Qualified Codes: I25.110 - Atherosclerotic heart disease of [place] coronary artery with unstable angina pectoris Robbie Milan MD Apr 26, 2017 17:00
--- NOTE | 2017-04-26 17:04 | RADRPT ---
EXAM DATE/TIME: 04/26/2017 16:45 [facility] COMPARISON: CHEST SINGLE AP, April 24, 2017, 12:55. INDICATIONS : Post CABG. MEDICAL HISTORY : None. SURGICAL HISTORY : None. ENCOUNTER: Initial ACUITY: 1 day PAIN SCORE: Non-responsive. LOCATION: Bilateral chest FINDINGS: Post surgical features of interval CABG with ETT at the level of the clavicles. NGT is in the stomach . Right IJ central line with tip in the atriocaval junction. Mediastinal drain and left-sided chest t ube. No significant pneumothorax. Prominence of the central pulmonary vascularity. Excellent within n ormal limits. Remainder of the exam is unchanged. CONCLUSION: 1. Expected postoperative features of recent CABG with tubes and lines, as above. 2. Note significant pneumothorax. 3. Mild positive fluid balance. Genaro Bragg MD on April 26, 2017 at 16:59 Board Certified Radiologist. This report was verified electronically.
--- NOTE | 2017-04-26 17:26 | PD.CARD.PN ---
Subjective Subjective Remarks intubated, sedated Objective Medications Current Medications Medications (Trade) Dose Ordered Sig/Alissa Route Start Time Stop Time Status Last Admin (Zofran Inj) 4 mg Q6H PRN IVP 04/24/17 17:15 (Narcan Inj) 0.4 mg UNSCH PRN IV PUSH 04/24/17 17:15 (Marisabel-Colace) 1 tab BID PO 04/24/17 21:00 04/24/17 20:46 (Milk Of Magnesia Liq) 30 ml Q12H PRN PO 04/24/17 17:15 (Senokot) 17.2 mg Q12H PRN PO 04/24/17 17:15 (Dulcolax Supp) 10 mg DAILY PRN RECTAL 04/24/17 17:15 (Lactulose Liq) 30 ml DAILY PRN PO 04/24/17 17:15 Sodium Chloride 1,000 ml @ 100 mls/hr Q10H IV 04/24/17 17:45 04/25/17 23:45 Papaverine HCl 60 mg/Nitroglycerin 100 mcg/Diltiazem HCl 100 mg/Sodium Chloride 100 ml @ 0 mls/hr [employer] IRRIGATION 04/25/17 12:45 05/02/17 12:44 04/26/17 13:49 Cefazolin Sodium 500 mg/Sodium Chloride 505 ml @ 0 mls/hr [employer] IRRIGATION 04/25/17 12:45 05/02/17 12:44 04/26/17 13:47 Cefazolin Sodium/ Dextrose 50 ml @ 150 mls/hr [employer] IV 04/25/17 12:45 05/02/17 12:44 (Lopressor) 12.5 mg [employer] PO 04/25/17 12:45 05/02/17 12:44 04/26/17 06:20 (Hibiclens 4% Top Soln) 1 applic [employer] TOPICAL 04/25/17 12:45 05/02/17 12:44 04/26/17 03:53 Sodium Chloride 500 ml @ 30 mls/hr [id number] PRN IV 04/26/17 00:45 04/29/17 00:44 (Lopressor) 25 mg [employer] PRN PO 04/26/17 00:45 04/29/17 00:44 (Betadine 5% Antisepsis Kit) 1 applic [employer] PRN EACH NARE 04/26/17 00:45 04/29/17 00:44 (Chlorhexidine 2% Cloth) 3 pack [employer] PRN TOPICAL 04/26/17 00:45 04/29/17 00:44 (NovoLIN R INJ) See Protocol Table ... [employer] PRN SQ 04/26/17 00:45 04/29/17 00:44 (NS Flush) 2 ml BID IV FLUSH 04/26/17 21:00 (NS Flush) 2 ml UNSCH PRN IV FLUSH 04/26/17 15:45 Dexmedetomidine HCl 200 mcg/ Sodium Chloride 52 ml @ 5.38 mls/hr TITRATE PRN IV 04/26/17 17:00 Clevidipine 50 ml @ 2 mls/hr TITRATE PRN IV 04/26/17 17:00 Albumin Human 250 ml @ 250 mls/hr UNSCH PRN IV 04/26/17 15:45 Lactated Ringer's 500 ml @ 500 mls/hr Q1H PRN IV 04/26/17 15:39 Cefazolin Sodium 1000 mg/Sodium Chloride 100 ml @ 200 mls/hr Q8H IV 04/26/17 20:00 04/28/17 04:29 (Aspirin Chew) 81 mg DAILY PO 04/27/17 09:00 (Protonix) 40 mg DAILY@06 PO 04/27/17 06:00 (Tylenol) 650 mg Q4H PRN PO 04/26/17 16:00 (Tylenol Supp) 650 mg Q4H PRN RECTAL 04/26/17 16:00 Acetaminophen 100 ml @ 400 mls/hr Q6H IV 04/26/17 16:00 04/27/17 10:14 (Percocet 5-325 Mg) 1 tab Q3H PRN PO 04/26/17 16:00 (fentaNYL INJ) 25 mcg Q1H PRN IV PUSH 04/26/17 16:00 (Zofran Inj) 4 mg Q6H PRN IV PUSH 04/26/17 16:00 (Apresoline Inj) 10 mg Q4H PRN IV PUSH 04/26/17 16:00 (Lopressor Inj) 2.5 mg Q1H PRN IV PUSH 04/26/17 17:00 Potassium Chloride 100 ml @ 50 mls/hr UNSCH PRN IV 04/26/17 15:45 Potassium Chloride 100 ml @ 50 mls/hr UNSCH PRN IV 04/26/17 15:45 Potassium Chloride 100 ml @ 50 mls/hr UNSCH PRN IV 04/26/17 15:45 04/26/17 17:17 (KCl) 20 meq UNSCH PRN PO 04/26/17 15:45 (KCl) 40 meq UNSCH PRN PO 04/26/17 15:45 Magnesium Sulfate 2 gm/Sodium Chloride 104 ml @ 100 mls/hr UNSCH PRN IV 04/26/17 15:45 Magnesium Sulfate 2 gm/Sodium Chloride 104 ml @ 50 mls/hr UNSCH PRN IV 04/26/17 15:45 (Calcium Chloride Inj) 0.5 gm UNSCH PRN IV PUSH 04/26/17 15:45 Insulin Human Regular 100 units/ Sodium Chloride 100 ml @ 3 mls/hr TITRATE PRN IV 04/26/17 17:00 (D50w (Vial) Inj) 50 ml UNSCH PRN IV PUSH 04/26/17 15:45 (Sodium Bicarbonate 8.4% Inj) 50 meq UNSCH PRN IV PUSH 04/26/17 15:45 (Sodium Bicarbonate 8.4% Inj) 100 meq UNSCH PRN IV PUSH 04/26/17 15:45 (Duoneb Neb) 1 ampule Q6HR NEB NEB 04/26/17 16:00 04/26/17 16:31 (Duoneb Neb) 1 ampule Q2HR NEB PRN NEB 04/26/17 16:00 (Racepinephrine 2.25% Neb) 0.5 ml UNSCH X1 PRN NEB 04/26/17 15:45 04/28/17 23:59 Vital Signs / I&O Vital Signs Date Time Temp Pulse Resp B/P (MAP) Pulse Ox O2 Delivery O2 Flow Rate FiO2 04/26/17 17:06 55 04/26/17 16:51 50 04/26/17 16:50 97 Mechanical Ventilator 50 04/26/17 16:42 97.3 55 12 125/58 (80) 97 04/26/17 16:31 97 50 04/26/17 07:20 98.8 55 16 161/86 (111) 98 04/26/17 07:20 55 04/26/17 07:19 98 Room Air 04/26/17 03:10 52 04/26/17 03:10 98.2 53 15 158/84 (108) 96 04/26/17 03:10 96 Room Air 04/26/17 00:13 93 Room Air 04/26/17 00:13 98.0 74 15 126/72 (90) 93 04/26/17 00:13 56 04/25/17 19:18 98.2 60 16 168/77 (107) 99 04/25/17 19:18 99 Room Air 04/25/17 19:18 99 21 04/25/17 19:00 60 I/O 04/25/17 04/25/17 04/25/17 04/26/17 04/26/17 04/26/17 07:00 15:00 23:00 07:00 15:00 23:00 Intake Total 0 ml 1000 ml 1423 ml 7750 ml Output Total 2000 ml 7290 ml Balance 0 ml 1000 ml -577 ml 460 ml Intake Oral 0 ml 200 ml IV Total 1000 ml 1223 ml Autotransfusion 750 ml Other 7000 ml Output Urine Total 2000 ml 2720 ml Gastric Drainage Total 0 ml Chest Tube Drainage Total 130 ml Estimated Blood Loss 3000 ml Other 1440 ml # Voids 2 # Bowel Movements 0 0 0 Physical Exam GENERAL: SKIN: Warm and dry. HEAD: Normocephalic. EYES: No scleral icterus. No injection or drainage. NECK: Supple, trachea midline. No JVD or lymphadenopathy. CARDIOVASCULAR: Regular rate and rhythm without murmurs, gallops, or rubs. RESPIRATORY: Breath sounds equal bilaterally. No accessory muscle use. GASTROINTESTINAL: Abdomen soft, non-tender, nondistended. MUSCULOSKELETAL: No cyanosis, or edema. BACK: Nontender without obvious deformity. No CVA tenderness. Laboratory Laboratory Tests Test 04/25/17 22:10 04/26/17 03:24 Activated Partial Thromboplast Time 33.4 SEC 39.6 SEC White Blood Count 7.9 TH/MM3 Red Blood Count 5.40 MIL/MM3 Hemoglobin 17.8 GM/DL Hematocrit 50.5 % Mean Corpuscular Volume 93.5 FL Mean Corpuscular Hemoglobin 33.0 PG Mean Corpuscular Hemoglobin Concent 35.3 % Red Cell Distribution Width 13.2 % Platelet Count 151 TH/MM3 Mean Platelet Volume 8.6 FL Neutrophils (%) (Auto) 70.0 % Lymphocytes (%) (Auto) 19.6 % Monocytes (%) (Auto) 8.0 % Eosinophils (%) (Auto) 1.6 % Basophils (%) (Auto) 0.8 % Neutrophils # (Auto) 5.5 TH/MM3 Lymphocytes # (Auto) 1.5 TH/MM3 Monocytes # (Auto) 0.6 TH/MM3 Eosinophils # (Auto) 0.1 TH/MM3 Basophils # (Auto) 0.1 TH/MM3 CBC Comment DIFF FINAL Differential Comment Blood Urea Nitrogen 12 MG/DL Creatinine 1.03 MG/DL Random Glucose 85 MG/DL Calcium Level 8.4 MG/DL Sodium Level 140 MEQ/L Potassium Level 4.0 MEQ/L Chloride Level 106 MEQ/L Carbon Dioxide Level 27.8 MEQ/L Anion Gap 6 MEQ/L Estimat Glomerular Filtration Rate 71 ML/MIN Triglycerides Level 98 MG/DL Cholesterol Level 155 MG/DL LDL Cholesterol 106 MG/DL HDL Cholesterol 29.3 MG/DL Cholesterol/HDL Ratio 5.29 RATIO Imaging Last 24 hours Impressions Chest X-Ray 04/26/17 0000 Signed Impressions: Service Date/Time: Wednesday, April 26, 2017 16:45 - CONCLUSION: 1. Expected postoperative features of recent CABG with tubes and lines, as above. 2. Note significant pneumothorax. 3. Mild positive fluid balance. Genaro Bragg MD Assessment and Plan Problem List: (1) CAD (coronary artery disease) ICD Codes: I25.10 - Atherosclerotic heart disease of [place] coronary artery without angina pectoris (2) NSTEMI (non-ST elevation myocardial infarction) ICD Codes: I21.4 - Non-ST elevation (NSTEMI) myocardial infarction (3) Polycythemia ICD Codes: D75.1 - Secondary polycythemia (4) S/P CABG (coronary artery bypass graft) ICD Codes: Z95.1 - Presence of aortocoronary bypass graft Assessment and Plan 1.) CAD - pod#0 4 vessel cabg, off pressors, stable Problem Qualifiers (1) CAD (coronary artery disease): Qualified Codes: I25.110 - Atherosclerotic heart disease of [place] coronary artery with unstable angina pectoris Jaden Dean MD Apr 26, 2017 17:26
[2017-04-26] MEDS: ACETAMINOPHEN 1000 MG/100 ML 100 ML IV SCH ×2 (17:39→21:32)
[2017-04-26] MEDS: oxyCODONE/ACETAMINOPHEN 5 MG/325 MG TAB PO PRN ×3 (19:54→23:50)
[2017-04-26] MEDS: ALBUMIN 5% INJ 250 ML IV PRN ×2 (19:54→21:23)
[2017-04-26] MEDS ORDERED: FACTOR VIIA (RECOMB) 5 MG VIAL IV PUSH ONE (21:30)
[2017-04-26 21:53] LABS: AUTOMATED NEUTROPHIL # 15.6 TH/MM3 (1.8-7.7); HEMATOCRIT 35.7 % (39.0-51.0); HEMOGLOBIN 12.5 GM/DL (13.0-17.0); LYMPH % 4.2 % (9.0-44.0); LYMPHOCYTE # 0.8 TH/MM3 (1.0-4.8); MEAN CELL VOLUME 92.8 FL (80.0-100.0); MEAN CORPUSCULAR HEMOGLOBIN 32.4 PG (27.0-34.0); MEAN CORPUSCULAR HGB CONC 34.9 % (32.0-36.0); MEAN PLATELET VOLUME 8.2 FL (7.0-11.0); MONO % 11.3 % (0.0-8.0); MONOCYTE # 2.1 TH/MM3 (0-0.9); NEUT % 84.5 % (16.0-70.0); PLATELET COUNT 158 TH/MM3 (150-450); RED BLOOD COUNT 3.85 MIL/MM3 (4.50-5.90); RED CELL DISTRIBUTION WIDTH 13.1 % (11.6-17.2); WHITE BLOOD COUNT 18.5 TH/MM3 (4.0-11.0)
[2017-04-26] MEDS: LACTATED RINGER'S 1000 ML INJ 500 ML IV PRN ×2 (22:00→23:00)
[2017-04-26 22:04] LABS: CALCIUM 7.9 MG/DL (8.5-10.1); CREATININE 1.06 MG/DL (0.60-1.30)
[2017-04-26 22:29] LABS: INTERNATIONAL NORMALIZED RATIO 1.3 RATIO; PROTHROMBIN TIME - PATIENT 12.7 SEC (9.8-11.6)
--- NOTE | 2017-04-26 22:55 | EKG ---
Date Performed: 04/26/2017 Time Performed: 05:35:16 PTAGE: 71 years EKG: Sinus bradycardia Left axis deviation RBBB with left anterior fascicular block Abnormal ECG PREVIOUS TRACING : 04/25/2017 15.31 DOCTOR: Bret Cedeño Interpretating Date/Time 04/26/2017 22:49:52
--- NOTE | 2017-04-26 22:56 | PD.CAR.PN ---
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 He recently began experiencing intrascapular pain, bilateral shoulder pain and developed severe chest pain while driving with his today. He had to kidney puller and have his drive the care to the ER. He denies shortness of breath, fevers, chills, cough, GI or bleeding, paroxysmal nocturnal dyspnea, orthopnea, syncope or dizziness. Found to have elevated trop 1.26. polycythemia and HTN ? 04/09 use of testosterone cardiac cath : 1. Severe diffuse three-vessel coronary artery disease and a right-dominant Preserved LV systolic function, ejection fraction 60%. PAST MEDICAL HISTORY history of a hernia repair, use of testosterone 04/26 for surgery today 04/26/17 2250 Patient's chest tube output increased from about 70ml/hr to ~300ml/hr after extubation ~1700. I was notified of this change at 1900. He has received platelets and Factor 7 with modest improvement. He has been stable with copious urine output. This past hour the chest tube drainage was 170ml which is significantly less than the hourly drainage from 0283-9335. Objective: Vital Signs Date Time Temp Pulse Resp B/P (MAP) Pulse Ox O2 Delivery O2 Flow Rate FiO2 04/26/17 19:59 97.5 70 18 105/53 98 04/26/17 19:50 98 Nasal Cannula 5.00 04/26/17 18:11 18 04/26/17 17:37 96 Nasal Cannula 5.00 04/26/17 17:37 96 Nasal Cannula 5 04/26/17 17:33 97.6 04/26/17 17:32 97 Nasal Cannula 5.00 04/26/17 17:06 55 04/26/17 16:51 50 04/26/17 16:50 97 Mechanical Ventilator 50 04/26/17 16:42 97.3 55 12 125/58 (80) 97 04/26/17 16:31 97 50 04/26/17 07:20 98.8 55 16 161/86 (111) 98 04/26/17 07:20 55 04/26/17 07:19 98 Room Air 04/26/17 03:10 52 04/26/17 03:10 98.2 53 15 158/84 (108) 96 04/26/17 03:10 96 Room Air 04/26/17 00:13 93 Room Air 04/26/17 00:13 98.0 74 15 126/72 (90) 93 04/26/17 00:13 56 Labs: Laboratory Tests Test 04/26/17 21:20 White Blood Count 18.5 TH/MM3 (4.0-11.0) Red Blood Count 3.85 MIL/MM3 (4.50-5.90) Hemoglobin 12.5 GM/DL (13.0-17.0) Hematocrit 35.7 % (39.0-51.0) Mean Corpuscular Volume 92.8 FL (80.0-100.0) Mean Corpuscular Hemoglobin 32.4 PG (27.0-34.0) Mean Corpuscular Hemoglobin Concent 34.9 % (32.0-36.0) Red Cell Distribution Width 13.1 % (11.6-17.2) Platelet Count 158 TH/MM3 (150-450) Mean Platelet Volume 8.2 FL (7.0-11.0) Neutrophils (%) (Auto) 84.5 % (16.0-70.0) Lymphocytes (%) (Auto) 4.2 % (9.0-44.0) Monocytes (%) (Auto) 11.3 % (0.0-8.0) Eosinophils (%) (Auto) 0.0 % (0.0-4.0) Basophils (%) (Auto) 0.0 % (0.0-2.0) Neutrophils # (Auto) 15.6 TH/MM3 (1.8-7.7) Lymphocytes # (Auto) 0.8 TH/MM3 (1.0-4.8) Monocytes # (Auto) 2.1 TH/MM3 (0-0.9) Eosinophils # (Auto) 0.0 TH/MM3 (0-0.4) Basophils # (Auto) 0.0 TH/MM3 (0-0.2) CBC Comment DIFF FINAL Differential Comment Prothrombin Time 12.7 SEC (9.8-11.6) Prothromb Time International Ratio 1.3 RATIO Fibrinogen 194 mg/dL (227-377) Blood Urea Nitrogen 12 MG/DL (7-18) Creatinine 1.06 MG/DL (0.60-1.30) Random Glucose 85 MG/DL (74-106) Calcium Level 7.9 MG/DL (8.5-10.1) Sodium Level 143 MEQ/L (136-145) Potassium Level 4.4 MEQ/L (3.5-5.1) Chloride Level 109 MEQ/L (98-107) Carbon Dioxide Level 26.0 MEQ/L (21.0-32.0) Anion Gap 8 MEQ/L (5-15) Estimat Glomerular Filtration Rate 69 ML/MIN (>89) Result Diagram: 04/26/17211904/26/172119 Imaging: Last 24 hours Impressions Chest X-Ray 04/26/17 0000 Signed Impressions: Service Date/Time: Wednesday, April 26, 2017 16:45 - CONCLUSION: 1. Expected postoperative features of recent CABG with tubes and lines, as above. 2. Note significant pneumothorax. 3. Mild positive fluid balance. Genaro Bragg MD Cardiovascular: RRR Telemetry: NSR Pulmonary: CTA GI/: NABS, NT Incision: dry and intact CT: as above Plan: Will give another dose of Factor 7 and follow trend for another hour. If the output increases to >300 an hour again, I will plan to re-explore the chest for bleeding. The patient is awake and alert and understands the plan. (1) CAD (coronary artery disease) (2) NSTEMI (non-ST elevation myocardial infarction) (3) Polycythemia (4) S/P CABG (coronary artery bypass graft) Problem Qualifiers (1) CAD (coronary artery disease): Qualified Codes: I25.110 - Atherosclerotic heart disease of [place] coronary artery with unstable angina pectoris Madyson Quezada MD Apr 26, 2017 22:56
[2017-04-26] MEDS ORDERED: FACTOR VIIA (RECOMB) 1 MG VIAL IV PUSH ONE (23:00)
[2017-04-26] MEDS ORDERED: FACTOR VIIA (RECOMB) 2 MG VIAL IV PUSH ONE (23:00)
--- NOTE | 2017-04-26 23:07 | EKG ---
Date Performed: 04/25/2017 Time Performed: 15:31:08 PTAGE: 71 years EKG: Sinus bradycardia Left axis deviation RBBB with left anterior fascicular block Possible inf erior infarct - age undetermined Abnormal ECG PREVIOUS TRACING : 04/24/2017 22.46 DOCTOR: Bret Cedeño Interpretating Date/Time 04/26/2017 22:57:50
[2017-04-27] VITALS (12 sets, daily range): BP systolic 108–141; BP diastolic 5–64; PULSE 76–89; RESP 16–20; TEMP 98–98.7; O2SAT 93–98
[2017-04-27] MEDS: RESP: ALBUTEROL 2.5 MG/IPRATROPIUM 0.5 MG NEB (SCH) NEB ×5 (03:27→20:37)
[2017-04-27] MEDS: ACETAMINOPHEN 1000 MG/100 ML 100 ML IV SCH ×2 (04:00→10:04)
[2017-04-27 04:12] LABS: HEMATOCRIT 33.7 % (39.0-51.0); HEMOGLOBIN 11.9 GM/DL (13.0-17.0); MEAN CELL VOLUME 93.7 FL (80.0-100.0); MEAN CORPUSCULAR HEMOGLOBIN 33.1 PG (27.0-34.0); MEAN CORPUSCULAR HGB CONC 35.4 % (32.0-36.0); MEAN PLATELET VOLUME 8.4 FL (7.0-11.0); PLATELET COUNT 133 TH/MM3 (150-450); RED BLOOD COUNT 3.59 MIL/MM3 (4.50-5.90)
[2017-04-27 04:27] LABS: BICARBONATE 25.3 MEQ/L (21.0-32.0); CALCIUM 7.7 MG/DL (8.5-10.1); CREATININE 1.06 MG/DL (0.60-1.30); MAGNESIUM 2.4 MG/DL (1.5-2.5)
[2017-04-27] MEDS: oxyCODONE/ACETAMINOPHEN 5 MG/325 MG TAB PO PRN ×5 (04:41→21:00)
[2017-04-27] MEDS: SODIUM CHLOR 0.9% 1000 ML INJ 1,000 ML IV SCH (05:45)
[2017-04-27] MEDS: PANTOPRAZOLE SOD 40 MG DELAYED RELEASE TAB PO SCH (06:00)
--- NOTE | 2017-04-27 06:26 | RADRPT ---
EXAM DATE/TIME: 04/27/2017 05:38 [facility] COMPARISON: CHEST SINGLE AP, April 26, 2017, 16:45. INDICATIONS : Short of breath. MEDICAL HISTORY : None. SURGICAL HISTORY : CABG. ENCOUNTER: Subsequent ACUITY: 2 days PAIN SCORE: 0/10 LOCATION: Bilateral chest FINDINGS: A single AP semierect view the chest was obtained and again demonstrates patient status post median s ternotomy. The right internal jugular central venous line remains in place. The mediastinal chest tub e and left-sided chest tube remain in place as well with no pneumothorax. The patient the next day th e nasogastric tube has been removed. There is patchy infiltrate in the left lung base with air bronch ograms. The heart size is mildly prominent. CONCLUSION: 1. Interval extubation and removal of nasogastric tube. 2. Mediastinal chest tube and left-sided chest tube remain in place with no pneumothorax. Airspace disease in the left lower lobe with air bronchograms. This appears increased. Marcelino Mejía MD on April 27, 2017 at 6:23 Board Certified Radiologist. This report was verified electronically.
[2017-04-27] MEDS: DOCUSATE SODIUM 50 MG/SENNA 8.6 MG TAB PO SCH (08:58)
[2017-04-27] MEDS: ASPIRIN 81 MG CHEW TAB PO SCH (08:58)
[2017-04-27] MEDS: SODIUM CHLORIDE 0.9% FLUSH 10 ML FLUSH IV FLUSH SCH ×2 (08:58→20:41)
--- NOTE | 2017-04-27 10:27 | PD.CAR.PN ---
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 He recently began experiencing intrascapular pain, bilateral shoulder pain and developed severe chest pain while driving with his today. He had to shoe puller and have his drive the care to the ER. He denies shortness of breath, fevers, chills, cough, GI or bleeding, paroxysmal nocturnal dyspnea, orthopnea, syncope or dizziness. Found to have elevated trop 1.26. polycythemia and HTN ? 2/ use of testosterone cardiac cath : 1. Severe diffuse three-vessel coronary artery disease and a right-dominant Preserved LV systolic function, ejection fraction 60%. PAST MEDICAL HISTORY history of a hernia repair, use of testosterone 04/26 for surgery today CABG x 4, [place] to LAD - good, SVG to RI - good, SVG to OM1 - good, SVG to PDA - good, L EVH crystalloid 3500cc, 750cc cell saver , EBL 1500cc, 4500cc urine 04/26/17 2250 Patient's chest tube output increased from about 70ml/hr to ~300ml/hr after extubation ~1700. I was notified of this change at 1900. He has received platelets and Factor 7 with modest improvement. He has been stable with copious urine output. This past hour the chest tube drainage was 170ml which is significantly less than the hourly drainage from 0944-6427. 04/27 extubated after surgery, had some bleeding last pm , requiring factor 7, and plts chest tube drainage 1970cc/ 12 hrs , on 2nd pleuravac with minimal drainage up in chair, on nasal cannula slightly anxious , rhythm stable on ASA, statin start BB this evening Objective: GENERAL: A&O x 3 SKIN: Warm and dry. prevena dressing to chest , incision intact left leg mild ecchymosis HEAD: Normocephalic. EYES: No scleral icterus. No injection or drainage. NECK: Supple, trachea midline. No JVD or lymphadenopathy. CARDIOVASCULAR: Regular rate and rhythm without murmurs, gallops, or rubs. RESPIRATORY: Breath sounds equal bilaterally. No accessory muscle use. chest tube to wall suction, no air leak GASTROINTESTINAL: Abdomen soft, non-tender, nondistended. MUSCULOSKELETAL: No cyanosis, or edema. BACK: Nontender without obvious deformity. No CVA tenderness. Vital Signs Date Time Temp Pulse Resp B/P (MAP) Pulse Ox O2 Delivery O2 Flow Rate FiO2 04/27/17 09:34 18 04/27/17 09:07 95 Nasal Cannula 5.00 04/27/17 07:28 98.6 89 18 141/56 (84) 95 04/27/17 07:28 87 04/27/17 07:26 95 Nasal Cannula 5.00 04/27/17 04:00 86 04/27/17 03:27 96 Nasal Cannula 3.00 04/27/17 03:00 98.0 85 16 127/57 (80) 94 04/27/17 03:00 92 Nasal Cannula 5.00 04/27/17 03:00 82 04/27/17 01:00 99 Nasal Cannula 5.00 04/27/17 00:30 90 Nasal Cannula 3.00 04/27/17 00:00 71 04/26/17 23:00 97.8 75 20 95/66 (76) 98 101/53 (69) 04/26/17 23:00 68 04/26/17 22:00 98 Nasal Cannula 3.00 04/26/17 20:00 68 04/26/17 19:59 97.5 70 18 105/53 98 04/26/17 19:50 98 Nasal Cannula 5.00 04/26/17 19:15 99 Nasal Cannula 5.00 04/26/17 19:00 97.5 68 20 82/48 (59) 99 104/53 (70) 04/26/17 19:00 68 04/26/17 18:11 18 04/26/17 17:37 96 Nasal Cannula 5.00 04/26/17 17:37 96 Nasal Cannula 5 04/26/17 17:33 97.6 04/26/17 17:32 97 Nasal Cannula 5.00 04/26/17 17:06 55 04/26/17 16:51 50 04/26/17 16:50 97 Mechanical Ventilator 50 04/26/17 16:42 97.3 55 12 125/58 (80) 97 04/26/17 16:31 97 50 Labs: Laboratory Tests Test 04/27/17 03:37 White Blood Count 16.0 TH/MM3 (4.0-11.0) Red Blood Count 3.59 MIL/MM3 (4.50-5.90) Hemoglobin 11.9 GM/DL (13.0-17.0) Hematocrit 33.7 % (39.0-51.0) Mean Corpuscular Volume 93.7 FL (80.0-100.0) Mean Corpuscular Hemoglobin 33.1 PG (27.0-34.0) Mean Corpuscular Hemoglobin Concent 35.4 % (32.0-36.0) Red Cell Distribution Width 13.0 % (11.6-17.2) Platelet Count 133 TH/MM3 (150-450) Mean Platelet Volume 8.4 FL (7.0-11.0) Blood Urea Nitrogen 15 MG/DL (7-18) Creatinine 1.06 MG/DL (0.60-1.30) Random Glucose 135 MG/DL (74-106) Calcium Level 7.7 MG/DL (8.5-10.1) Magnesium Level 2.4 MG/DL (1.5-2.5) Sodium Level 141 MEQ/L (136-145) Potassium Level 4.8 MEQ/L (3.5-5.1) Chloride Level 106 MEQ/L (98-107) Carbon Dioxide Level 25.3 MEQ/L (21.0-32.0) Anion Gap 10 MEQ/L (5-15) Estimat Glomerular Filtration Rate 69 ML/MIN (>89) Result Diagram: 04/27/1733604/27/17336 (1) CAD (coronary artery disease) (2) S/P CABG (coronary artery bypass graft) Plan: s/p factor 7, plt HGB this am . will continue to monitor add prn xanax for anxiety pulm toileting nebs ezpap OOB, ambulate cm for HHC (3) NSTEMI (non-ST elevation myocardial infarction) (4) Polycythemia Plan: pt need to decrease dosing of testosterone at home Problem Qualifiers (1) CAD (coronary artery disease): Qualified Codes: I25.110 - Atherosclerotic heart disease of [place] coronary artery with unstable angina pectoris Francine Abreu Apr 27, 2017 10:27
[2017-04-27] MEDS ORDERED: METOPROLOL TARTRATE 25 MG TAB PO SCH (10:30)
[2017-04-27] MEDS ORDERED: DEXTROSE 50% IN WATER 50 ML VIAL(D50) IV PUSH PRN (10:30)
[2017-04-27] MEDS ORDERED: GLUCAGON 1 MG/ML VIAL OTHER PRN (10:30)
[2017-04-27] MEDS: DOCUSATE SODIUM 100 MG CAP PO SCH ×2 (10:30→20:40)
[2017-04-27] MEDS ORDERED: SOD PHOSPHATE/SOD BIPHOSPHATE (ADULT) ENEMA 133ML RECTAL PRN (10:30)
[2017-04-27] MEDS ORDERED: BISACODYL 10 MG SUPP RECTAL PRN (10:30)
[2017-04-27] MEDS: INSULIN ASPART SUPPLEMENTAL SCALE SQ SCH ×4 (11:39→22:28)
--- NOTE | 2017-04-27 14:55 | PD.CARD.PN ---
Subjective Subjective Remarks alert, lucid, in nad Objective Medications Current Medications Medications (Trade) Dose Ordered Sig/Alissa Route Start Time Stop Time Status Last Admin (Milk Of Magnesia Liq) 30 ml Q12H PRN PO 04/24/17 17:15 (Dulcolax Supp) 10 mg DAILY PRN RECTAL 04/24/17 17:15 (Lactulose Liq) 30 ml DAILY PRN PO 04/24/17 17:15 (NS Flush) 2 ml BID IV FLUSH 04/26/17 21:00 04/27/17 08:58 (NS Flush) 2 ml UNSCH PRN IV FLUSH 04/26/17 15:45 Cefazolin Sodium 1000 mg/Sodium Chloride 100 ml @ 200 mls/hr Q8H IV 04/26/17 20:00 04/28/17 04:29 04/27/17 11:38 (Aspirin Chew) 81 mg DAILY PO 04/27/17 09:00 04/27/17 08:58 (Protonix) 40 mg DAILY@06 PO 04/27/17 06:00 04/27/17 06:00 (Tylenol) 650 mg Q4H PRN PO 04/26/17 16:00 (Percocet 5-325 Mg) 1 tab Q3H PRN PO 04/26/17 16:00 04/26/17 20:00 (Zofran Inj) 4 mg Q6H PRN IV PUSH 04/26/17 16:00 (Duoneb Neb) 1 ampule Q2HR NEB PRN NEB 04/26/17 16:00 (Percocet 5-325 Mg) 2 tab Q3H PRN PO 04/26/17 21:30 04/27/17 14:40 (Duoneb Neb) 1 ampule Q6HR WHILE AWAKE NEB NEB 04/27/17 14:00 04/29/17 13:59 04/27/17 13:46 (Colace) 100 mg BID PO 04/27/17 10:30 (Theragran M Tab) 1 tab DAILY PO 04/28/17 09:00 (Milk Of Magnesia Liq) 30 ml DAILY PO 04/28/17 09:00 (Dulcolax Supp) 10 mg UNSCH PRN RECTAL 04/27/17 10:30 (Miralax) 17 gm DAILY PO 04/28/17 09:00 (Senokot) 8.6 mg HS PO 04/27/17 21:00 (Fleets Enema (Adult)) 118 ml UNSCH PRN RECTAL 04/27/17 10:30 (NovoLOG SUPPLEMENTAL SCALE) 1 02,06,10,14,18,22 SQ 04/27/17 14:00 04/27/17 11:39 (D50w (Vial) Inj) 50 ml UNSCH PRN IV PUSH 04/27/17 10:30 (Glucagon Inj) 1 mg UNSCH PRN OTHER 04/27/17 10:30 (Lipitor) 40 mg HS PO 04/27/17 21:00 (Lopressor) 12.5 mg BID PO 04/27/17 21:00 (Xanax) 0.25 mg Q8H PRN PO 04/27/17 10:30 Vital Signs / I&O Vital Signs Date Time Temp Pulse Resp B/P (MAP) Pulse Ox O2 Delivery O2 Flow Rate FiO2 04/27/17 12:47 16 04/27/17 11:06 95 Nasal Cannula 5.00 04/27/17 11:06 88 04/27/17 11:04 98.7 87 18 /5 93 128/59 (82) 04/27/17 09:07 95 Nasal Cannula 5.00 04/27/17 07:28 98.6 89 18 141/56 (84) 95 04/27/17 07:28 87 04/27/17 07:26 95 Nasal Cannula 5.00 04/27/17 04:00 86 04/27/17 03:27 96 Nasal Cannula 3.00 04/27/17 03:00 98.0 85 16 127/57 (80) 94 04/27/17 03:00 92 Nasal Cannula 5.00 04/27/17 03:00 82 04/27/17 01:00 99 Nasal Cannula 5.00 04/27/17 00:30 90 Nasal Cannula 3.00 04/27/17 00:00 71 04/26/17 23:00 97.8 75 20 95/66 (76) 98 101/53 (69) 04/26/17 23:00 68 04/26/17 22:00 98 Nasal Cannula 3.00 04/26/17 20:00 68 04/26/17 19:59 97.5 70 18 105/53 98 04/26/17 19:50 98 Nasal Cannula 5.00 04/26/17 19:15 99 Nasal Cannula 5.00 04/26/17 19:00 97.5 68 20 82/48 (59) 99 104/53 (70) 04/26/17 19:00 68 18 18:11 18 04/26/17 17:37 96 Nasal Cannula 5.00 04/26/17 17:37 96 Nasal Cannula 5 04/26/17 17:33 97.6 04/26/17 17:32 97 Nasal Cannula 5.00 04/26/17 17:06 55 04/26/17 16:51 50 04/26/17 16:50 97 Mechanical Ventilator 50 04/26/17 16:42 97.3 55 12 125/58 (80) 97 04/26/17 16:31 97 50 I/O 04/26/1718 04/26/17 04/27/17 04/27/17 04/27/17 07:00 15:00 23:00 07:00 15:00 23:00 Intake Total 1423 ml 8893 ml 1480 ml 100 ml Output Total 2000 ml 7290 ml 3760 ml Balance -577 ml 1603 ml -2280 ml 100 ml Intake Oral 200 ml 480 ml IV Total 1223 ml 910 ml 1000 ml 100 ml Autotransfusion 750 ml Platelets 223 ml Blood Product IV Normal Saline Flush 10 ml Other 7000 ml Output Urine Total 2000 ml 2720 ml 1790 ml Gastric Drainage Total 0 ml Chest Tube Drainage Total 130 ml 1970 ml Estimated Blood Loss 3000 ml Other 1440 ml # Bowel Movements 0 0 0 Physical Exam GENERAL: SKIN: Warm and dry. HEAD: Normocephalic. EYES: No scleral icterus. No injection or drainage. NECK: Supple, trachea midline. No JVD or lymphadenopathy. CARDIOVASCULAR: Regular rate and rhythm without murmurs, gallops, or rubs. RESPIRATORY: Breath sounds equal bilaterally. No accessory muscle use. GASTROINTESTINAL: Abdomen soft, non-tender, nondistended. MUSCULOSKELETAL: No cyanosis, or edema. BACK: Nontender without obvious deformity. No CVA tenderness. Laboratory Laboratory Tests Test 04/26/17 21:20 04/27/17 03:37 White Blood Count 18.5 TH/MM3 16.0 TH/MM3 Red Blood Count 3.85 MIL/MM3 3.59 MIL/MM3 Hemoglobin 12.5 GM/DL 11.9 GM/DL Hematocrit 35.7 % 33.7 % Mean Corpuscular Volume 92.8 FL 93.7 FL Mean Corpuscular Hemoglobin 32.4 PG 33.1 PG Mean Corpuscular Hemoglobin Concent 34.9 % 35.4 % Red Cell Distribution Width 13.1 % 13.0 % Platelet Count 158 TH/MM3 133 TH/MM3 Mean Platelet Volume 8.2 FL 8.4 FL Neutrophils (%) (Auto) 84.5 % Lymphocytes (%) (Auto) 4.2 % Monocytes (%) (Auto) 11.3 % Eosinophils (%) (Auto) 0.0 % Basophils (%) (Auto) 0.0 % Neutrophils # (Auto) 15.6 TH/MM3 Lymphocytes # (Auto) 0.8 TH/MM3 Monocytes # (Auto) 2.1 TH/MM3 Eosinophils # (Auto) 0.0 TH/MM3 Basophils # (Auto) 0.0 TH/MM3 CBC Comment DIFF FINAL Differential Comment Prothrombin Time 12.7 SEC Prothromb Time International Ratio 1.3 RATIO Fibrinogen 194 mg/dL Blood Urea Nitrogen 12 MG/DL 15 MG/DL Creatinine 1.06 MG/DL 1.06 MG/DL Random Glucose 85 MG/DL 135 MG/DL Calcium Level 7.9 MG/DL 7.7 MG/DL Sodium Level 143 MEQ/L 141 MEQ/L Potassium Level 4.4 MEQ/L 4.8 MEQ/L Chloride Level 109 MEQ/L 106 MEQ/L Carbon Dioxide Level 26.0 MEQ/L 25.3 MEQ/L Anion Gap 8 MEQ/L 10 MEQ/L Estimat Glomerular Filtration Rate 69 ML/MIN 69 ML/MIN Magnesium Level 2.4 MG/DL Imaging Last 24 hours Impressions Chest X-Ray 04/27/17 0500 Signed Impressions: Service Date/Time: Thursday, April 27, 2017 05:38 - CONCLUSION: 1. Interval extubation and removal of nasogastric tube. 2. Mediastinal chest tube and left-sided chest tube remain in place with no pneumothorax. Airspace disease in the left lower lobe with air bronchograms. This appears increased. Marcelino Mejía MD Assessment and Plan Problem List: (1) CAD (coronary artery disease) ICD Codes: I25.10 - Atherosclerotic heart disease of [place] coronary artery without angina pectoris (2) S/P CABG (coronary artery bypass graft) ICD Codes: Z95.1 - Presence of aortocoronary bypass graft (3) NSTEMI (non-ST elevation myocardial infarction) ICD Codes: I21.4 - Non-ST elevation (NSTEMI) myocardial infarction (4) Polycythemia ICD Codes: D75.1 - Secondary polycythemia Assessment and Plan 1.) CAD - pod# 4 vessel cabg, off pressors, stable, recheck lfts to determine eligibility for statins Problem Qualifiers (1) CAD (coronary artery disease): Qualified Codes: I25.110 - Atherosclerotic heart disease of [place] coronary artery with unstable angina pectoris Jaden Dean MD Apr 27, 2017 14:55
--- NOTE | 2017-04-27 16:15 | HHI.PR ---
Subjective Remarks resting comfortably chest tube in place telemetry- in SR Objective Vitals Vital Signs Date Time Temp Pulse Resp B/P (MAP) Pulse Ox O2 Delivery O2 Flow Rate FiO2 04/27/17 15:56 18 04/27/17 15:07 82 04/27/17 15:07 95 Nasal Cannula 5.00 04/27/17 15:06 98.6 83 18 /5 95 109/62 (78) 04/27/17 11:06 95 Nasal Cannula 5.00 04/27/17 11:06 88 04/27/17 11:04 98.7 87 18 /5 93 128/59 (82) 04/27/17 09:07 95 Nasal Cannula 5.00 04/27/17 07:28 98.6 89 18 141/56 (84) 95 04/27/17 07:28 87 04/27/17 07:26 95 Nasal Cannula 5.00 04/27/17 04:00 86 04/27/17 03:27 96 Nasal Cannula 3.00 04/27/17 03:00 98.0 85 16 127/57 (80) 94 04/27/17 03:00 92 Nasal Cannula 5.00 04/27/17 03:00 82 04/27/17 01:00 99 Nasal Cannula 5.00 04/27/17 00:30 90 Nasal Cannula 3.00 04/27/17 00:00 71 04/26/17 23:00 97.8 75 20 95/66 (76) 98 101/53 (69) 04/26/17 23:00 68 04/26/17 22:00 98 Nasal Cannula 3.00 04/26/17 20:00 68 04/26/17 19:59 97.5 70 18 105/53 98 04/26/17 19:50 98 Nasal Cannula 5.00 04/26/17 19:15 99 Nasal Cannula 5.00 04/26/17 19:00 97.5 68 20 82/48 (59) 99 104/53 (70) 04/26/17 19:00 68 04/26/17 18:11 18 04/26/17 17:37 96 Nasal Cannula 5.00 04/26/17 17:37 96 Nasal Cannula 5 04/26/17 17:33 97.6 04/26/17 17:32 97 Nasal Cannula 5.00 04/26/17 17:06 55 04/26/17 16:51 50 04/26/17 16:50 97 Mechanical Ventilator 50 04/26/17 16:42 97.3 55 12 125/58 (80) 97 04/26/17 16:31 97 50 I/O 04/26/17 04/26/17 04/26/17 04/27/17 04/27/17 04/27/17 07:00 15:00 23:00 07:00 15:00 23:00 Intake Total 1423 ml 8893 ml 1480 ml 100 ml Output Total 2000 ml 7290 ml 3760 ml Balance -577 ml 1603 ml -2280 ml 100 ml Intake Oral 200 ml 480 ml IV Total 1223 ml 910 ml 1000 ml 100 ml Autotransfusion 750 ml Platelets 223 ml Blood Product IV Normal Saline Flush 10 ml Other 7000 ml Output Urine Total 2000 ml 2720 ml 1790 ml Gastric Drainage Total 0 ml Chest Tube Drainage Total 130 ml 1970 ml Estimated Blood Loss 3000 ml Other 1440 ml # Bowel Movements 0 0 0 Result Diagram: 04/27/17 0337 04/27/17 0337 Imaging Last Impressions Chest X-Ray 04/27/17 0500 Signed Impressions: Service Date/Time: Thursday, April 27, 2017 05:38 - CONCLUSION: 1. Interval extubation and removal of nasogastric tube. 2. Mediastinal chest tube and left-sided chest tube remain in place with no pneumothorax. Airspace disease in the left lower lobe with air bronchograms. This appears increased. Marcelino Mejía MD Lower Extremity Ultrasound 04/25/17 0000 Signed Impressions: Service Date/Time: Tuesday, April 25, 2017 14:30 - CONCLUSION: Normal examination. John Dolan MD Carotid Artery Ultrasound 04/25/17 0000 Signed Impressions: Service Date/Time: Tuesday, April 25, 2017 14:01 - CONCLUSION: No two-dimensional stenosis identified. Moderate plaque in the right internal carotid origin. John Dolan MD Objective Remarks alert no acute distress good sats at [facility] anicteric neck- double lumen central line chest tube in place regular rhythm abdomen soft, nontender extrtemities no edema Procedures CABG A/P Problem List: (1) Chest pain ICD Code: R07.9 - Chest pain, unspecified (2) Polycythemia ICD Code: D75.1 - Secondary polycythemia (3) NSTEMI (non-ST elevation myocardial infarction) ICD Code: I21.4 - Non-ST elevation (NSTEMI) myocardial infarction (4) CAD (coronary artery disease) ICD Code: I25.10 - Atherosclerotic heart disease of [place] coronary artery without angina pectoris Assessment and Plan 71-year-old male who presented with chest pain. Patient had a non-ST elevation [place]. He has three-vessel disease on heart catheterization. Plan for CABG. S/P CABG 04/26- for NSTEMI: three-vessel disease HYpertension - Post op care per CV surgery - NC - ASA/statins/BB Acute renal insufficiency: Likely combination of prerenal azotemia from [place] and dehydration. 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 Hyperlipidemia: Pt. started on Statin change attending service to Cardiothoracic service Problem Qualifiers (1) Chest pain: Qualified Codes: I20.0 - Unstable angina (2) CAD (coronary artery disease): Qualified Codes: I25.110 - Atherosclerotic heart disease of [place] coronary artery with unstable angina pectoris Fransisco Galeana MD Apr 27, 2017 16:15
--- NOTE | 2017-04-27 18:53 | EKG ---
Date Performed: 04/27/2017 Time Performed: 05:58:04 PTAGE: 71 years EKG: Sinus rhythm rSr'(V1) - probable normal variant Inferior infarct - age undetermined Abnormal ECG Since the prior tracing, there has been no significant change NO PREVIOUS TRACING DOCTOR: Genevieve Victoria Interpretating Date/Time 04/27/2017 18:47:56
[2017-04-27] MEDS: ATORVASTATIN 40 MG TAB PO SCH (20:40)
[2017-04-27] MEDS: METOPROLOL TARTRATE 25 MG TAB PO SCH (20:40)
[2017-04-27] MEDS: SENNOSIDES 8.6 MG TAB PO SCH (20:40)
[2017-04-27] MEDS: ALPRAZolam 0.25 MG TAB PO PRN (22:19)
[2017-04-28] VITALS (21 sets, daily range): BP systolic 104–139; BP diastolic 56–68; PULSE 76–89; RESP 18–20; TEMP 98.2–98.7; O2SAT 90–100
[2017-04-28] MEDS: oxyCODONE/ACETAMINOPHEN 5 MG/325 MG TAB PO PRN ×3 (00:14→21:02)
[2017-04-28] MEDS: INSULIN ASPART SUPPLEMENTAL SCALE SQ SCH ×6 (02:00→21:04)
[2017-04-28] MEDS: PANTOPRAZOLE SOD 40 MG DELAYED RELEASE TAB PO SCH (05:22)
[2017-04-28] MEDS: ALPRAZolam 0.25 MG TAB PO PRN ×2 (05:35→21:02)
[2017-04-28 06:22] LABS: AUTOMATED NEUTROPHIL # 14.1 TH/MM3 (1.8-7.7); BASOPHIL % 0.1 % (0.0-2.0); EOSINOPHIL # 0.1 TH/MM3 (0-0.4); EOSINOPHIL % 0.3 % (0.0-4.0); HEMATOCRIT 30.8 % (39.0-51.0); HEMOGLOBIN 10.8 GM/DL (13.0-17.0); LYMPH % 8.2 % (9.0-44.0); LYMPHOCYTE # 1.4 TH/MM3 (1.0-4.8); MEAN CELL VOLUME 94.7 FL (80.0-100.0); MEAN CORPUSCULAR HEMOGLOBIN 33.2 PG (27.0-34.0); MEAN CORPUSCULAR HGB CONC 35.1 % (32.0-36.0); MEAN PLATELET VOLUME 8.7 FL (7.0-11.0); MONO % 8.4 % (0.0-8.0); MONOCYTE # 1.4 TH/MM3 (0-0.9); PLATELET COUNT 113 TH/MM3 (150-450); RED BLOOD COUNT 3.25 MIL/MM3 (4.50-5.90); RED CELL DISTRIBUTION WIDTH 13.1 % (11.6-17.2)
[2017-04-28 06:51] LABS: ALBUMIN 2.8 GM/DL (3.4-5.0); BICARBONATE 31.7 MEQ/L (21.0-32.0); CALCIUM 7.9 MG/DL (8.5-10.1); CREATININE 1.2 MG/DL (0.60-1.30); MAGNESIUM 2.2 MG/DL (1.5-2.5)
[2017-04-28 06:53] LABS: DIRECT BILIRUBIN ADULT 0.2 MG/DL (0.0-0.2)
[2017-04-28 06:55] LABS: INDIRECT BILIRUBIN 0.4 MG/DL (0.0-0.8); TOTAL BILIRUBIN ADULT 0.6 MG/DL (0.2-1.0); TOTAL PROTEIN 5.3 GM/DL (6.4-8.2)
[2017-04-28] MEDS: RESP: ALBUTEROL 2.5 MG/IPRATROPIUM 0.5 MG NEB (SCH) NEB ×3 (07:42→19:59)
[2017-04-28] MEDS: DOCUSATE SODIUM 100 MG CAP PO SCH ×2 (08:41→21:02)
[2017-04-28] MEDS: MULTIVITAMINS/MINERALS THERAPEUTIC TAB PO SCH (08:41)
[2017-04-28] MEDS: METOPROLOL TARTRATE 25 MG TAB PO SCH ×2 (08:41→21:02)
[2017-04-28] MEDS: SODIUM CHLORIDE 0.9% FLUSH 10 ML FLUSH IV FLUSH SCH ×2 (08:41→21:00)
[2017-04-28] MEDS: MAGNESIUM HYDROXIDE SUSP 30 ML CUP PO SCH (08:41)
[2017-04-28] MEDS: POLYETHYLENE GLYCOL 17 GM PKG PO SCH (08:41)
[2017-04-28] MEDS: ASPIRIN 81 MG CHEW TAB PO SCH (08:41)
[2017-04-28] MEDS ORDERED: FUROSEMIDE 20 MG/2 ML VIAL IV PUSH ONE (09:45)
[2017-04-28] MEDS ORDERED: POTASSIUM CHLORIDE 10 MEQ CAP PO ONE (09:45)
--- NOTE | 2017-04-28 09:56 | PD.CAR.PN ---
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 He recently began experiencing intrascapular pain, bilateral shoulder pain and developed severe chest pain while driving with his today. He had to lathe puller and have his drive the care to the ER. He denies shortness of breath, fevers, chills, cough, GI or bleeding, paroxysmal nocturnal dyspnea, orthopnea, syncope or dizziness. Found to have elevated trop 1.26. polycythemia and HTN ? 2/ use of testosterone cardiac cath : 1. Severe diffuse three-vessel coronary artery disease and a right-dominant Preserved LV systolic function, ejection fraction 60%. PAST MEDICAL HISTORY history of a hernia repair, use of testosterone 04/26 for surgery today CABG x 4, [place] to LAD - good, SVG to RI - good, SVG to OM1 - good, SVG to PDA - good, L EVH crystalloid 3500cc, 750cc cell saver , EBL 1500cc, 4500cc urine 04/26/17 2250 Patient's chest tube output increased from about 70ml/hr to ~300ml/hr after extubation ~1700. I was notified of this change at 1900. He has received platelets and Factor 7 with modest improvement. He has been stable with copious urine output. This past hour the chest tube drainage was 170ml which is significantly less than the hourly drainage from [id number]. 04/27 extubated after surgery, had some bleeding last pm , requiring factor 7, and plts chest tube drainage 1970cc/ 12 hrs , on 2nd pleuravac with minimal drainage up in chair, on nasal cannula slightly anxious , rhythm stable on ASA, statin start BB this evening 04/28 did not sleep well last night, instructed to ask for xanax at bedtime chest tube drained 210cc/12hrs , no air leak remains in NSR wean 02 as tolerated, gentle diuresis OOB ambulate Objective: GENERAL: A&O x 3 SKIN: Warm and dry. prevena dressing to chest, incision intact left EVH site, some ecchymosis HEAD: Normocephalic. EYES: No scleral icterus. No injection or drainage. NECK: Supple, trachea midline. No JVD or lymphadenopathy. CARDIOVASCULAR: Regular rate and rhythm without murmurs, gallops, or rubs. RESPIRATORY: Breath sounds equal bilaterally. No accessory muscle use. slightly diminished in bases / chest tube no air leak GASTROINTESTINAL: Abdomen soft, non-tender, nondistended. MUSCULOSKELETAL: No cyanosis, or edema. BACK: Nontender without obvious deformity. No CVA tenderness. Vital Signs Date Time Temp Pulse Resp B/P (MAP) Pulse Ox O2 Delivery O2 Flow Rate FiO2 04/28/17 07:45 100 Nasal Cannula 3.50 04/28/17 07:00 98.2 79 18 117/63 (81) 100 04/28/17 07:00 100 Nasal Cannula 3.00 04/28/17 07:00 77 04/28/17 04:00 83 04/28/17 03:30 95 Nasal Cannula 3.00 04/28/17 03:30 98.7 83 20 128/68 (88) 95 04/27/17 23:00 83 04/27/17 23:00 95 Nasal Cannula 3.00 04/27/17 23:00 98.6 84 20 108/64 (79) 95 04/27/17 22:00 20 04/27/17 20:18 98 Nasal Cannula 4.00 04/27/17 20:00 96 Nasal Cannula 4.00 04/27/17 20:00 98.2 78 20 123/60 (81) 96 04/27/17 19:30 76 04/27/17 19:30 97 Nasal Cannula 5.00 04/27/17 15:56 18 04/27/17 15:07 82 04/27/17 15:07 95 Nasal Cannula 5.00 04/27/17 15:06 98.6 83 18 /5 95 109/62 (78) 04/27/17 11:06 95 Nasal Cannula 5.00 04/27/17 11:06 88 04/27/17 11:04 98.7 87 18 /5 93 128/59 (82) Labs: Laboratory Tests Test 04/28/17 05:35 White Blood Count 17.0 TH/MM3 (4.0-11.0) Red Blood Count 3.25 MIL/MM3 (4.50-5.90) Hemoglobin 10.8 GM/DL (13.0-17.0) Hematocrit 30.8 % (39.0-51.0) Mean Corpuscular Volume 94.7 FL (80.0-100.0) Mean Corpuscular Hemoglobin 33.2 PG (27.0-34.0) Mean Corpuscular Hemoglobin Concent 35.1 % (32.0-36.0) Red Cell Distribution Width 13.1 % (11.6-17.2) Platelet Count 113 TH/MM3 (150-450) Mean Platelet Volume 8.7 FL (7.0-11.0) Neutrophils (%) (Auto) 83.0 % (16.0-70.0) Lymphocytes (%) (Auto) 8.2 % (9.0-44.0) Monocytes (%) (Auto) 8.4 % (0.0-8.0) Eosinophils (%) (Auto) 0.3 % (0.0-4.0) Basophils (%) (Auto) 0.1 % (0.0-2.0) Neutrophils # (Auto) 14.1 TH/MM3 (1.8-7.7) Lymphocytes # (Auto) 1.4 TH/MM3 (1.0-4.8) Monocytes # (Auto) 1.4 TH/MM3 (0-0.9) Eosinophils # (Auto) 0.1 TH/MM3 (0-0.4) Basophils # (Auto) 0.0 TH/MM3 (0-0.2) CBC Comment DIFF FINAL Differential Comment Blood Urea Nitrogen 17 MG/DL (7-18) Creatinine 1.20 MG/DL (0.60-1.30) Random Glucose 127 MG/DL (74-106) Total Protein 5.3 GM/DL (6.4-8.2) Albumin 2.8 GM/DL (3.4-5.0) Calcium Level 7.9 MG/DL (8.5-10.1) Magnesium Level 2.2 MG/DL (1.5-2.5) Alkaline Phosphatase 42 U/L (45-117) Aspartate Amino Transf (AST/SGOT) 64 U/L (15-37) Alanine Aminotransferase (ALT/SGPT) 33 U/L (12-78) Total Bilirubin 0.6 MG/DL (0.2-1.0) Direct Bilirubin 0.2 MG/DL (0.0-0.2) Sodium Level 138 MEQ/L (136-145) Potassium Level 4.3 MEQ/L (3.5-5.1) Chloride Level 101 MEQ/L (98-107) Carbon Dioxide Level 31.7 MEQ/L (21.0-32.0) Anion Gap 5 MEQ/L (5-15) Estimat Glomerular Filtration Rate 60 ML/MIN (>89) Indirect Bilirubin 0.4 MG/DL (0.0-0.8) Result Diagram: 04/28/17 0535 04/28/17 0535 Telemetry: NSR (1) CAD (coronary artery disease) (2) S/P CABG (coronary artery bypass graft) Plan: gentle diuresis leave chest tube in will continue to monitor add prn xanax for anxiety pulm toileting nebs ezpap OOB, ambulate cm for HHC (3) NSTEMI (non-ST elevation myocardial infarction) (4) Polycythemia Plan: pt need to decrease dosing of testosterone at home Problem Qualifiers (1) CAD (coronary artery disease): Qualified Codes: I25.110 - Atherosclerotic heart disease of [place] coronary artery with unstable angina pectoris Francine Abreu Apr 28, 2017 09:56
--- NOTE | 2017-04-28 13:58 | PD.CARD.PN ---
Subjective Subjective Remarks alert, lucid, in nad Objective Medications Current Medications Medications (Trade) Dose Ordered Sig/Alissa Route Start Time Stop Time Status Last Admin (Milk Of Magnesia Liq) 30 ml Q12H PRN PO 04/24/17 17:15 (Dulcolax Supp) 10 mg DAILY PRN RECTAL 04/24/17 17:15 (Lactulose Liq) 30 ml DAILY PRN PO 04/24/17 17:15 (NS Flush) 2 ml BID IV FLUSH 04/26/17 21:00 04/28/17 08:41 (NS Flush) 2 ml UNSCH PRN IV FLUSH 04/26/17 15:45 (Aspirin Chew) 81 mg DAILY PO 04/27/17 09:00 04/28/17 08:41 (Protonix) 40 mg DAILY@06 PO 04/27/17 06:00 04/28/17 05:22 (Tylenol) 650 mg Q4H PRN PO 04/26/17 16:00 (Percocet 5-325 Mg) 1 tab Q3H PRN PO 04/26/17 16:00 04/28/17 05:23 (Zofran Inj) 4 mg Q6H PRN IV PUSH 04/26/17 16:00 (Duoneb Neb) 1 ampule Q2HR NEB PRN NEB 04/26/17 16:00 (Duoneb Neb) 1 ampule Q6HR WHILE AWAKE NEB NEB 04/27/17 14:00 04/29/17 13:59 04/28/17 13:47 (Colace) 100 mg BID PO 04/27/17 10:30 04/28/17 08:41 (Theragran M Tab) 1 tab DAILY PO 04/28/17 09:00 04/28/17 08:41 (Milk Of Magnesia Liq) 30 ml DAILY PO 04/28/17 09:00 04/28/17 08:41 (Dulcolax Supp) 10 mg UNSCH PRN RECTAL 04/27/17 10:30 (Miralax) 17 gm DAILY PO 04/28/17 09:00 04/28/17 08:41 (Senokot) 8.6 mg HS PO 04/27/17 21:00 04/27/17 20:40 (Fleets Enema (Adult)) 118 ml UNSCH PRN RECTAL 04/27/17 10:30 (NovoLOG SUPPLEMENTAL SCALE) 1 02,06,10,14,18,22 SQ 04/27/17 14:00 04/28/17 10:48 (D50w (Vial) Inj) 50 ml UNSCH PRN IV PUSH 04/27/17 10:30 (Glucagon Inj) 1 mg UNSCH PRN OTHER 04/27/17 10:30 (Lipitor) 40 mg HS PO 04/27/17 21:00 04/27/17 20:40 (Lopressor) 12.5 mg BID PO 04/27/17 21:00 04/28/17 08:41 (Xanax) 0.25 mg Q8H PRN PO 04/27/17 10:30 04/28/17 05:35 Vital Signs / I&O Vital Signs Date Time Temp Pulse Resp B/P (MAP) Pulse Ox O2 Delivery O2 Flow Rate FiO2 04/28/17 13:00 76 04/28/17 12:00 76 04/28/17 11:24 93 Nasal Cannula 2.00 04/28/17 11:21 98.6 79 19 104/57 (73) 90 04/28/17 11:00 76 04/28/17 07:45 100 Nasal Cannula 3.50 04/28/17 07:00 98.2 79 18 117/63 (81) 100 04/28/17 07:00 100 Nasal Cannula 3.00 04/28/17 07:00 77 04/28/17 04:00 83 04/28/17 03:30 95 Nasal Cannula 3.00 04/28/17 03:30 98.7 83 20 128/68 (88) 95 04/27/17 23:00 83 04/27/17 23:00 95 Nasal Cannula 3.00 04/27/17 23:00 98.6 84 20 108/64 (79) 95 04/27/17 22:00 20 04/27/17 20:18 98 Nasal Cannula 4.00 04/27/17 20:00 96 Nasal Cannula 4.00 04/27/17 20:00 98.2 78 20 123/60 (81) 96 04/27/17 19:30 76 04/27/17 19:30 97 Nasal Cannula 5.00 04/27/17 15:56 18 04/27/17 15:07 82 04/27/17 15:07 95 Nasal Cannula 5.00 04/27/17 15:06 98.6 83 18 /5 95 109/62 (78) I/O 04/27/17 04/27/17 04/27/17 04/28/17 04/28/17 04/28/17 07:00 15:00 23:00 07:00 15:00 23:00 Intake Total 1480 ml 100 ml 1000 ml 580 ml Output Total 3760 ml 510 ml 735 ml Balance -2280 ml 100 ml 490 ml -155 ml Intake Oral 480 ml 900 ml 480 ml IV Total 1000 ml 100 ml 100 ml 100 ml Output Urine Total 1790 ml 260 ml 525 ml Chest Tube Drainage Total 1970 ml 250 ml 210 ml # Voids 2 # Bowel Movements 0 0 0 Physical Exam GENERAL: SKIN: Warm and dry. HEAD: Normocephalic. EYES: No scleral icterus. No injection or drainage. NECK: Supple, trachea midline. No JVD or lymphadenopathy. CARDIOVASCULAR: Regular rate and rhythm without murmurs, gallops, or rubs. RESPIRATORY: Breath sounds equal bilaterally. No accessory muscle use. GASTROINTESTINAL: Abdomen soft, non-tender, nondistended. MUSCULOSKELETAL: No cyanosis, or edema. BACK: Nontender without obvious deformity. No CVA tenderness. Laboratory Laboratory Tests Test 04/28/17 05:35 White Blood Count 17.0 TH/MM3 Red Blood Count 3.25 MIL/MM3 Hemoglobin 10.8 GM/DL Hematocrit 30.8 % Mean Corpuscular Volume 94.7 FL Mean Corpuscular Hemoglobin 33.2 PG Mean Corpuscular Hemoglobin Concent 35.1 % Red Cell Distribution Width 13.1 % Platelet Count 113 TH/MM3 Mean Platelet Volume 8.7 FL Neutrophils (%) (Auto) 83.0 % Lymphocytes (%) (Auto) 8.2 % Monocytes (%) (Auto) 8.4 % Eosinophils (%) (Auto) 0.3 % Basophils (%) (Auto) 0.1 % Neutrophils # (Auto) 14.1 TH/MM3 Lymphocytes # (Auto) 1.4 TH/MM3 Monocytes # (Auto) 1.4 TH/MM3 Eosinophils # (Auto) 0.1 TH/MM3 Basophils # (Auto) 0.0 TH/MM3 CBC Comment DIFF FINAL Differential Comment Blood Urea Nitrogen 17 MG/DL Creatinine 1.20 MG/DL Random Glucose 127 MG/DL Total Protein 5.3 GM/DL Albumin 2.8 GM/DL Calcium Level 7.9 MG/DL Magnesium Level 2.2 MG/DL Alkaline Phosphatase 42 U/L Aspartate Amino Transf (AST/SGOT) 64 U/L Alanine Aminotransferase (ALT/SGPT) 33 U/L Total Bilirubin 0.6 MG/DL Direct Bilirubin 0.2 MG/DL Sodium Level 138 MEQ/L Potassium Level 4.3 MEQ/L Chloride Level 101 MEQ/L Carbon Dioxide Level 31.7 MEQ/L Anion Gap 5 MEQ/L Estimat Glomerular Filtration Rate 60 ML/MIN Indirect Bilirubin 0.4 MG/DL Assessment and Plan Problem List: (1) CAD (coronary artery disease) ICD Codes: I25.10 - Atherosclerotic heart disease of [place] coronary artery without angina pectoris (2) S/P CABG (coronary artery bypass graft) ICD Codes: Z95.1 - Presence of aortocoronary bypass graft (3) NSTEMI (non-ST elevation myocardial infarction) ICD Codes: I21.4 - Non-ST elevation (NSTEMI) myocardial infarction (4) Polycythemia ICD Codes: D75.1 - Secondary polycythemia Assessment and Plan 1.) CAD - pod# 2 vessel cabg, off pressors, stable, on aspirin, lipitor, lopressor Problem Qualifiers (1) CAD (coronary artery disease): Qualified Codes: I25.110 - Atherosclerotic heart disease of [place] coronary artery with unstable angina pectoris Jaden Dean MD Apr 28, 2017 13:58
[2017-04-28] MEDS: ATORVASTATIN 40 MG TAB PO SCH (21:01)
[2017-04-28] MEDS: SENNOSIDES 8.6 MG TAB PO SCH (21:02)
[2017-04-29] VITALS (30 sets, daily range): BP systolic 99–140; BP diastolic 57–65; PULSE 68–88; RESP 18–19; TEMP 98–99.4; O2SAT 93–96
[2017-04-29] MEDS: oxyCODONE/ACETAMINOPHEN 5 MG/325 MG TAB PO PRN (03:15)
[2017-04-29] MEDS: PANTOPRAZOLE SOD 40 MG DELAYED RELEASE TAB PO SCH (05:33)
[2017-04-29 06:00] LABS: ALBUMIN 2.4 GM/DL (3.4-5.0); ALT (GPT) 30 U/L (12-78); AST (GOT) 47 U/L (15-37); BICARBONATE 30.7 MEQ/L (21.0-32.0); BLOOD UREA NITROGEN 18 MG/DL (7-18); CHLORIDE 101 MEQ/L (98-107); CREATININE 1.06 MG/DL (0.60-1.30); GLOMERULAR FILTRATION RATE 69 ML/MIN (>89); GLUCOSE,RANDOM 108 MG/DL (74-106); SODIUM (NA) 136 MEQ/L (136-145)
[2017-04-29 06:01] LABS: ALKALINE PHOSPHATASE 43 U/L (45-117); TOTAL BILIRUBIN ADULT 0.5 MG/DL (0.2-1.0); TOTAL PROTEIN 5.3 GM/DL (6.4-8.2)
[2017-04-29] MEDS: RESP: ALBUTEROL 2.5 MG/IPRATROPIUM 0.5 MG NEB (SCH) NEB (08:00)
[2017-04-29] MEDS: MAGNESIUM HYDROXIDE SUSP 30 ML CUP PO SCH (09:00)
[2017-04-29] MEDS: METOPROLOL TARTRATE 25 MG TAB PO SCH ×2 (09:43→21:37)
[2017-04-29] MEDS: POLYETHYLENE GLYCOL 17 GM PKG PO SCH (09:43)
[2017-04-29] MEDS: ALPRAZolam 0.25 MG TAB PO PRN ×2 (09:43→21:51)
[2017-04-29] MEDS: INSULIN ASPART SUPPLEMENTAL SCALE SQ SCH ×4 (09:43→21:00)
[2017-04-29] MEDS: MULTIVITAMINS/MINERALS THERAPEUTIC TAB PO SCH (09:43)
[2017-04-29] MEDS: DOCUSATE SODIUM 100 MG CAP PO SCH ×2 (09:43→21:37)
[2017-04-29] MEDS: SODIUM CHLORIDE 0.9% FLUSH 10 ML FLUSH IV FLUSH SCH ×2 (09:43→21:37)
[2017-04-29] MEDS: ASPIRIN 81 MG CHEW TAB PO SCH (09:43)
[2017-04-29 15:45] LABS: AMORPHOUS SEDIMENT, URINE RARE; BILIRUBIN, URINE NEG (NEG); BLOOD, URINE LARGE (NEG); GLUCOSE,URINE TRACE mg/dL (NEG); KETONE, URINE NEG (NEG); MUCUS URINE FEW /lpf (OCC); NITRITE,URINE NEG (NEG); PH, URINE 5.5 (5.0-8.5); URINE COLOR YELLOW (YELLW/STRAW); URINE LEUKOCYTE ESTERASE NEG (NEG)
[2017-04-29] MEDS ORDERED: cefTRIAXone INJ 1,000 MG in SODIUM CHLORIDE 0.9% INJ 100 ML IV SCH (17:00)
--- NOTE | 2017-04-29 17:18 | PD.CARD.PN ---
Subjective Subjective Remarks alert, lucid, in nad, chest tubes out Objective Medications Current Medications Medications (Trade) Dose Ordered Sig/Alissa Route Start Time Stop Time Status Last Admin (Milk Of Magnesia Liq) 30 ml Q12H PRN PO 04/24/17 17:15 (Dulcolax Supp) 10 mg DAILY PRN RECTAL 04/24/17 17:15 (Lactulose Liq) 30 ml DAILY PRN PO 04/24/17 17:15 (NS Flush) 2 ml BID IV FLUSH 04/26/17 21:00 04/29/17 09:43 (NS Flush) 2 ml UNSCH PRN IV FLUSH 04/26/17 15:45 (Aspirin Chew) 81 mg DAILY PO 04/27/17 09:00 04/29/17 09:43 (Protonix) 40 mg DAILY@06 PO 04/27/17 06:00 04/29/17 05:33 (Tylenol) 650 mg Q4H PRN PO 04/26/17 16:00 (Percocet 5-325 Mg) 1 tab Q3H PRN PO 04/26/17 16:00 04/29/17 03:15 (Zofran Inj) 4 mg Q6H PRN IV PUSH 04/26/17 16:00 (Duoneb Neb) 1 ampule Q2HR NEB PRN NEB 04/26/17 16:00 (Colace) 100 mg BID PO 04/27/17 10:30 04/29/17 09:43 (Theragran M Tab) 1 tab DAILY PO 04/28/17 09:00 04/29/17 09:43 (Milk Of Magnesia Liq) 30 ml DAILY PO 04/28/17 09:00 04/29/17 09:00 (Dulcolax Supp) 10 mg UNSCH PRN RECTAL 04/27/17 10:30 (Miralax) 17 gm DAILY PO 04/28/17 09:00 04/29/17 09:43 (Senokot) 8.6 mg HS PO 04/27/17 21:00 04/28/17 21:02 (Fleets Enema (Adult)) 118 ml UNSCH PRN RECTAL 04/27/17 10:30 (D50w (Vial) Inj) 50 ml UNSCH PRN IV PUSH 04/27/17 10:30 (Glucagon Inj) 1 mg UNSCH PRN OTHER 04/27/17 10:30 (Lipitor) 40 mg HS PO 04/27/17 21:00 04/28/17 21:01 (Lopressor) 12.5 mg BID PO 04/27/17 21:00 04/29/17 09:43 (Xanax) 0.25 mg Q8H PRN PO 04/27/17 10:30 04/29/17 09:43 (NovoLOG SUPPLEMENTAL SCALE) 1 ACHS SQ 04/28/17 21:00 04/29/17 09:43 Ceftriaxone Sodium 1000 mg/ Sodium Chloride 100 ml @ 200 mls/hr Q24H IV 04/29/17 17:00 Vital Signs / I&O Vital Signs Date Time Temp Pulse Resp B/P (MAP) Pulse Ox O2 Delivery O2 Flow Rate FiO2 04/29/17 15:59 96 Room Air 04/29/17 15:26 99.4 77 19 111/59 (76) 93 04/29/17 14:13 75 04/29/17 13:00 74 04/29/17 12:02 98.8 04/29/17 12:00 76 04/29/17 11:45 94 Room Air 04/29/17 11:30 88 19 116/58 (77) 94 04/29/17 11:00 77 04/29/17 10:00 78 04/29/17 09:17 93 21 04/29/17 09:00 82 04/29/17 08:08 93 Room Air 04/29/17 08:02 98.6 81 19 120/57 (78) 95 04/29/17 08:00 80 04/29/17 07:00 72 04/29/17 06:00 74 04/29/17 05:00 71 04/29/17 04:00 74 04/29/17 03:05 Nasal Cannula 2.00 04/29/17 03:00 76 04/29/17 03:00 98.0 77 18 140/65 (90) 96 04/29/17 03:00 96 Nasal Cannula 3.00 04/29/17 02:00 70 04/29/17 01:00 75 04/29/17 00:00 80 04/28/17 23:20 94 Nasal Cannula 3.00 04/28/17 23:15 98.2 86 18 121/56 (77) 94 Automatic Cuff 04/28/17 23:15 89 Room Air 04/28/17 23:00 82 04/28/17 22:00 87 04/28/17 21:00 84 04/28/17 20:30 94 Room Air 04/28/17 20:30 98.2 89 18 139/65 (89) 94 04/28/17 20:00 92 Nasal Cannula 3.00 04/28/17 20:00 84 04/28/17 19:00 88 04/28/17 18:00 86 I/O 04/28/17 04/28/17 04/28/17 04/29/17 04/29/17 04/29/17 07:00 15:00 23:00 07:00 15:00 23:00 Intake Total 580 ml 480 ml 480 ml 960 ml Output Total 735 ml 280 ml 785 ml 900 ml Balance -155 ml 200 ml -305 ml 60 ml Intake Oral 480 ml 480 ml 480 ml 960 ml IV Total 100 ml Output Urine Total 525 ml 200 ml 675 ml 900 ml Chest Tube Drainage Total 210 ml 80 ml 110 ml # Voids 1 # Bowel Movements 0 0 0 Physical Exam GENERAL: SKIN: Warm and dry. HEAD: Normocephalic. EYES: No scleral icterus. No injection or drainage. NECK: Supple, trachea midline. No JVD or lymphadenopathy. CARDIOVASCULAR: Regular rate and rhythm without murmurs, gallops, or rubs. RESPIRATORY: Breath sounds equal bilaterally. No accessory muscle use. GASTROINTESTINAL: Abdomen soft, non-tender, nondistended. MUSCULOSKELETAL: No cyanosis, or edema. BACK: Nontender without obvious deformity. No CVA tenderness. Laboratory Laboratory Tests Test 04/29/17 04:55 04/29/17 15:05 Blood Urea Nitrogen 18 MG/DL Creatinine 1.06 MG/DL Random Glucose 108 MG/DL Total Protein 5.3 GM/DL Albumin 2.4 GM/DL Calcium Level 8.0 MG/DL Alkaline Phosphatase 43 U/L Aspartate Amino Transf (AST/SGOT) 47 U/L Alanine Aminotransferase (ALT/SGPT) 30 U/L Total Bilirubin 0.5 MG/DL Sodium Level 136 MEQ/L Potassium Level 4.2 MEQ/L Chloride Level 101 MEQ/L Carbon Dioxide Level 30.7 MEQ/L Anion Gap 4 MEQ/L Estimat Glomerular Filtration Rate 69 ML/MIN Urine Color YELLOW Urine Turbidity CLEAR Urine pH 5.5 Urine Specific Ru[place] 1.013 Urine Protein TRACE mg/dL Urine Glucose (UA) TRACE mg/dL Urine Ketones NEG mg/dL Urine Occult Blood LARGE Urine Nitrite NEG Urine Bilirubin NEG Urine Urobilinogen LESS THAN 2.0 MG/DL Urine Leukocyte Esterase NEG Urine RBC /hpf Urine WBC 11 /hpf Urine Amorphous Sediment RARE Urine Mucus FEW /lpf Microscopic Urinalysis Comment CULTURE INDICATED Assessment and Plan Problem List: (1) CAD (coronary artery disease) ICD Codes: I25.10 - Atherosclerotic heart disease of [place] coronary artery without angina pectoris (2) S/P CABG (coronary artery bypass graft) ICD Codes: Z95.1 - Presence of aortocoronary bypass graft (3) NSTEMI (non-ST elevation myocardial infarction) ICD Codes: I21.4 - Non-ST elevation (NSTEMI) myocardial infarction (4) Polycythemia ICD Codes: D75.1 - Secondary polycythemia Assessment and Plan 1.) CAD - pod# 3, 4 vessel cabg, on aspirin, lipitor, lopressor. lfts decreasing Problem Qualifiers (1) CAD (coronary artery disease): Qualified Codes: I25.110 - Atherosclerotic heart disease of [place] coronary artery with unstable angina pectoris Jaden Dean MD Apr 29, 2017 17:18
--- NOTE | 2017-04-29 19:47 | EKG ---
Date Performed: 04/29/2017 Time Performed: 08:49:08 PTAGE: 71 years EKG: CONSIDER ACUTE ST ELEVATION [place] Sinus rhythm with PAC(s) rSr'(V1) - probable normal variant Extensive ST elevation, CONSIDER ACUTE INFARCT When c ompared to previous tracing, the patient is having Extensive ST elevation, consistant with an acute i nfarct. Clinical corrolation is suggested. Abnormal ECG PREVIOUS TRACING : 04/27/2017 05.58 DOCTOR: Genevieve Victoria Interpretating Date/Time 04/29/2017 19:46:53
[2017-04-29] MEDS: SENNOSIDES 8.6 MG TAB PO SCH (21:00)
[2017-04-29] MEDS: ATORVASTATIN 40 MG TAB PO SCH (21:37)
[2017-04-30] VITALS (14 sets, daily range): BP systolic 113–115; BP diastolic 57–59; PULSE 70–84; RESP 20; TEMP 98.1–98.3; O2SAT 96–98
[2017-04-30] MEDS: PANTOPRAZOLE SOD 40 MG DELAYED RELEASE TAB PO SCH (06:25)
--- NOTE | 2017-04-30 06:45 | RADRPT ---
EXAM DATE/TIME: 04/30/2017 05:54 [facility] COMPARISON: CHEST SINGLE AP, April 27, 2017, 5:38. INDICATIONS : Status post bilateral chest tube removal. MEDICAL HISTORY : None. SURGICAL HISTORY : CABG. ENCOUNTER: Subsequent ACUITY: 1 week PAIN SCORE: 0/10 LOCATION: chest FINDINGS: Left chest tube and mediastinal drain out. No pneumothorax. There is persistent consolidation at the left mid to lower lung. Heart size stable, upper limits of normal. Median sternotomy changes are again noted. Right internal jugular central venous catheter is better. CONCLUSION: Left chest tube and mediastinal drain have been remain. No pneumothorax. Persistent patchy consolidat ion left mid and lower lung. Brody Diamond MD on April 30, 2017 at 6:42 Board Certified Radiologist. This report was verified electronically.
[2017-04-30] MEDS: INSULIN ASPART SUPPLEMENTAL SCALE SQ SCH (08:00)
[2017-04-30] MEDS: SODIUM CHLORIDE 0.9% FLUSH 10 ML FLUSH IV FLUSH SCH (09:00)
[2017-04-30] MEDS: DOCUSATE SODIUM 100 MG CAP PO SCH (09:00)
[2017-04-30] MEDS: POLYETHYLENE GLYCOL 17 GM PKG PO SCH (09:00)
[2017-04-30] MEDS: MAGNESIUM HYDROXIDE SUSP 30 ML CUP PO SCH (09:00)
[2017-04-30] MEDS: MULTIVITAMINS/MINERALS THERAPEUTIC TAB PO SCH (09:03)
[2017-04-30] MEDS: METOPROLOL TARTRATE 25 MG TAB PO SCH (09:03)
[2017-04-30] MEDS: ASPIRIN 81 MG CHEW TAB PO SCH (09:04)
--- NOTE | 2017-04-30 12:02 | PD.CARD.PN ---
Subjective Subjective Remarks alert, lucid, in nad, chest tubes out Objective Medications Current Medications Medications (Trade) Dose Ordered Sig/Alissa Route Start Time Stop Time Status Last Admin (Milk Of Magnesia Liq) 30 ml Q12H PRN PO 04/24/17 17:15 (Dulcolax Supp) 10 mg DAILY PRN RECTAL 04/24/17 17:15 (Lactulose Liq) 30 ml DAILY PRN PO 04/24/17 17:15 (NS Flush) 2 ml BID IV FLUSH 04/26/17 21:00 04/30/17 09:00 (NS Flush) 2 ml UNSCH PRN IV FLUSH 04/26/17 15:45 (Aspirin Chew) 81 mg DAILY PO 04/27/17 09:00 04/30/17 09:04 (Protonix) 40 mg DAILY@06 PO 04/27/17 06:00 04/30/17 06:25 (Tylenol) 650 mg Q4H PRN PO 04/26/17 16:00 (Percocet 5-325 Mg) 1 tab Q3H PRN PO 04/26/17 16:00 04/29/17 03:15 (Zofran Inj) 4 mg Q6H PRN IV PUSH 04/26/17 16:00 (Duoneb Neb) 1 ampule Q2HR NEB PRN NEB 04/26/17 16:00 (Colace) 100 mg BID PO 04/27/17 10:30 04/29/17 21:37 (Theragran M Tab) 1 tab DAILY PO 04/28/17 09:00 04/30/17 09:03 (Milk Of Magnesia Liq) 30 ml DAILY PO 04/28/17 09:00 04/29/17 09:00 (Dulcolax Supp) 10 mg UNSCH PRN RECTAL 04/27/17 10:30 (Miralax) 17 gm DAILY PO 04/28/17 09:00 04/29/17 09:43 (Senokot) 8.6 mg HS PO 04/27/17 21:00 04/28/17 21:02 (Fleets Enema (Adult)) 118 ml UNSCH PRN RECTAL 04/27/17 10:30 (D50w (Vial) Inj) 50 ml UNSCH PRN IV PUSH 04/27/17 10:30 (Glucagon Inj) 1 mg UNSCH PRN OTHER 04/27/17 10:30 (Lipitor) 40 mg HS PO 04/27/17 21:00 04/29/17 21:37 (Lopressor) 12.5 mg BID PO 04/27/17 21:00 04/30/17 09:03 (Xanax) 0.25 mg Q8H PRN PO 04/27/17 10:30 04/29/17 21:51 (NovoLOG SUPPLEMENTAL SCALE) 1 ACHS SQ 04/28/17 21:00 04/29/17 09:43 Ceftriaxone Sodium 1000 mg/ Sodium Chloride 100 ml @ 200 mls/hr Q24H IV 04/29/17 17:00 04/29/17 17:42 Vital Signs / I&O Vital Signs Date Time Temp Pulse Resp B/P (MAP) Pulse Ox O2 Delivery O2 Flow Rate FiO2 04/30/17 11:18 98.3 80 20 114/58 (76) 97 04/30/17 11:00 84 04/30/17 10:00 76 04/30/17 09:00 72 04/30/17 08:00 78 04/30/17 08:00 98.2 80 20 113/57 (75) 97 04/30/17 07:00 80 04/30/17 06:08 78 04/30/17 05:07 72 04/30/17 04:00 70 04/30/17 03:00 98.1 79 115/59 (77) 96 04/30/17 03:00 72 04/30/17 02:00 72 04/30/17 01:00 76 04/30/17 00:00 70 04/29/17 23:00 68 04/29/17 23:00 98.3 70 112/58 (76) 95 04/29/17 22:00 74 04/29/17 21:00 80 04/29/17 20:00 76 04/29/17 19:48 93 21 04/29/17 19:00 98.6 81 99/58 (72) 95 04/29/17 19:00 88 04/29/17 18:00 82 04/29/17 17:00 86 04/29/17 16:00 78 04/29/17 15:59 96 Room Air 04/29/17 15:26 99.4 77 19 111/59 (76) 93 04/29/17 15:00 75 04/29/17 14:13 75 04/29/17 13:00 74 04/29/17 12:02 98.8 I/O 04/29/17 04/29/17 04/29/17 04/30/17 04/30/17 04/30/17 07:00 15:00 23:00 07:00 15:00 23:00 Intake Total 480 ml 960 ml 390 ml Output Total 785 ml 900 ml 875 ml Balance -305 ml 60 ml -485 ml Intake Oral 480 ml 960 ml 390 ml Output Urine Total 675 ml 900 ml 875 ml Chest Tube Drainage Total 110 ml # Bowel Movements 0 0 1 Physical Exam GENERAL: SKIN: Warm and dry. HEAD: Normocephalic. EYES: No scleral icterus. No injection or drainage. NECK: Supple, trachea midline. No JVD or lymphadenopathy. CARDIOVASCULAR: Regular rate and rhythm without murmurs, gallops, or rubs. RESPIRATORY: Breath sounds equal bilaterally. No accessory muscle use. GASTROINTESTINAL: Abdomen soft, non-tender, nondistended. MUSCULOSKELETAL: No cyanosis, or edema. BACK: Nontender without obvious deformity. No CVA tenderness. Laboratory Laboratory Tests Test 04/29/17 15:05 Urine Color YELLOW Urine Turbidity CLEAR Urine pH 5.5 Urine Specific Coleman 1.013 Urine Protein TRACE mg/dL Urine Glucose (UA) TRACE mg/dL Urine Ketones NEG mg/dL Urine Occult Blood LARGE Urine Nitrite NEG Urine Bilirubin NEG Urine Urobilinogen LESS THAN 2.0 MG/DL Urine Leukocyte Esterase NEG Urine RBC /hpf Urine WBC 11 /hpf Urine Amorphous Sediment RARE Urine Mucus FEW /lpf Microscopic Urinalysis Comment CULTURE INDICATED Imaging Last 24 hours Impressions Chest X-Ray 04/30/17 0500 Signed Impressions: Service Date/Time: Sunday, April 30, 2017 05:54 - CONCLUSION: Left chest tube and mediastinal drain have been remain. No pneumothorax. Persistent patchy consolidation left mid and lower lung. Brody Diamond MD Assessment and Plan Problem List: (1) CAD (coronary artery disease) ICD Codes: I25.10 - Atherosclerotic heart disease of [place] coronary artery without angina pectoris (2) S/P CABG (coronary artery bypass graft) ICD Codes: Z95.1 - Presence of aortocoronary bypass graft (3) NSTEMI (non-ST elevation myocardial infarction) ICD Codes: I21.4 - Non-ST elevation (NSTEMI) myocardial infarction (4) Polycythemia ICD Codes: D75.1 - Secondary polycythemia Assessment and Plan 1.) CAD - pod# 4, 4 vessel cabg, on aspirin, lipitor, lopressor. lfts decreasing , patient advised to f/u in my office 05/03/17 by me Problem Qualifiers (1) CAD (coronary artery disease): Qualified Codes: I25.110 - Atherosclerotic heart disease of [place] coronary artery with unstable angina pectoris Jaden Dean MD Apr 30, 2017 12:02
[2017-04-30] MEDS ORDERED: COMMODE 3-IN-11 MIS (13:22)
[2017-04-30] MEDS ORDERED: ATOR40TA16 PO (13:26)
[2017-04-30] MEDS ORDERED: DOCU1CAP39 PO (13:26)
[2017-04-30] MEDS ORDERED: ALPR.25 PO (13:26)
[2017-04-30] MEDS ORDERED: THERM PO (13:26)
[2017-04-30] MEDS ORDERED: ASPI81 PO (13:26)
[2017-04-30] MEDS ORDERED: METO25TA3 PO (13:26)
[2017-04-30] MEDS ORDERED: OXYC1TAB63 PO (13:26)
--- NOTE | 2017-04-30 13:52 | HHI.DS ---
Discharge Summary Admission Date Apr 25, 2017 at 10:28 Discharge Date: Apr 30, 2017 Admitting Diagnosis chest pain elevated troponin rule out ACS (1) Chest pain Diagnosis: Principal ICD Codes: R07.9 - Chest pain, unspecified Status: Resolved (2) Polycythemia Diagnosis: Principal ICD Codes: D75.1 - Secondary polycythemia Status: Chronic (3) NSTEMI (non-ST elevation myocardial infarction) Diagnosis: Principal ICD Codes: I21.4 - Non-ST elevation (NSTEMI) myocardial infarction (4) CAD (coronary artery disease) Diagnosis: Principal ICD Codes: I25.10 - Atherosclerotic heart disease of [place] coronary artery without angina pectoris (5) S/P CABG (coronary artery bypass graft) Diagnosis: Secondary ICD Codes: Z95.1 - Presence of aortocoronary bypass graft Procedures CABG x 4 04/26 HARR[place] to LAD - good SVG to RI - good SVG to OM1 - good SVG to PDA - good EVH Brief History Yeison is a very pleasant 71-year-old gentleman with no significant past medical history who is an endurance athlete, 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 He recently began experiencing intrascapular pain, bilateral shoulder pain and developed severe chest pain while driving with his today. He had to line puller and have his drive the care to the ER. He denies shortness of breath, fevers, chills, cough, GI or bleeding, paroxysmal nocturnal dyspnea, orthopnea, syncope or dizziness. Found to have elevated trop 1.26. polycythemia and HTN ? 2/ use of testosterone cardiac cath : 1. Severe diffuse three-vessel coronary artery disease and a right-dominant Preserved LV systolic function, ejection fraction 60%. PAST MEDICAL HISTORY history of a hernia repair, use of testosterone 04/26 for surgery today CABG x 4, H[place] to LAD - good, SVG to RI - good, SVG to OM1 - good, SVG to PDA - good, L EVH crystalloid 3500cc, 750cc cell saver , EBL 1500cc, 4500cc urine CBC/BMP: 04/28/17 0535 04/29/17 0455 Significant Findings Laboratory Tests Test 04/28/17 05:35 04/29/17 04:55 04/29/17 15:05 White Blood Count 17.0 TH/MM3 (4.0-11.0) Red Blood Count 3.25 MIL/MM3 (4.50-5.90) Hemoglobin 10.8 GM/DL (13.0-17.0) Hematocrit 30.8 % (39.0-51.0) Platelet Count 113 TH/MM3 (150-450) Neutrophils (%) (Auto) 83.0 % (16.0-70.0) Lymphocytes (%) (Auto) 8.2 % (9.0-44.0) Monocytes (%) (Auto) 8.4 % (0.0-8.0) Neutrophils # (Auto) 14.1 TH/MM3 (1.8-7.7) Monocytes # (Auto) 1.4 TH/MM3 (0-0.9) Random Glucose 127 MG/DL (74-106) 108 MG/DL (74-106) Total Protein 5.3 GM/DL (6.4-8.2) 5.3 GM/DL (6.4-8.2) Albumin 2.8 GM/DL (3.4-5.0) 2.4 GM/DL (3.4-5.0) Calcium Level 7.9 MG/DL (8.5-10.1) 8.0 MG/DL (8.5-10.1) Alkaline Phosphatase 42 U/L (45-117) 43 U/L (45-117) Aspartate Amino Transf (AST/SGOT) 64 U/L (15-37) 47 U/L (15-37) Estimat Glomerular Filtration Rate 60 ML/MIN (>89) 69 ML/MIN (>89) Anion Gap 4 MEQ/L (5-15) Urine Occult Blood LARGE (NEG) Urine WBC 11 /hpf (0-5) Urine Mucus FEW /lpf (OCC) Imaging Last Impressions Chest X-Ray 04/30/17 0500 Signed Impressions: Service Date/Time: Sunday, April 30, 2017 05:54 - CONCLUSION: Left chest tube and mediastinal drain have been remain. No pneumothorax. Persistent patchy consolidation left mid and lower lung. Brody Diamond MD Lower Extremity Ultrasound 04/25/17 0000 Signed Impressions: Service Date/Time: Tuesday, April 25, 2017 14:30 - CONCLUSION: Normal examination. John Dolan MD Carotid Artery Ultrasound 04/25/17 0000 Signed Impressions: Service Date/Time: Tuesday, April 25, 2017 14:01 - CONCLUSION: No two-dimensional stenosis identified. Moderate plaque in the right internal carotid origin. John Dolan MD PE at Discharge GENERAL: A&O x 3 SKIN: Warm and dry. incision intact and well approximated to chest HEAD: Normocephalic. EYES: No scleral icterus. No injection or drainage. NECK: Supple, trachea midline. No JVD or lymphadenopathy. CARDIOVASCULAR: Regular rate and rhythm without murmurs, gallops, or rubs. RESPIRATORY: Breath sounds equal bilaterally. No accessory muscle use. GASTROINTESTINAL: Abdomen soft, non-tender, nondistended. MUSCULOSKELETAL: No cyanosis, or edema. BACK: Nontender without obvious deformity. No CVA tenderness. Hospital Course 04/26 for surgery today CABG x 4, H[place] to LAD - good, SVG to RI - good, SVG to OM1 - good, SVG to PDA - good, L EVH crystalloid 3500cc, 750cc cell saver , EBL 1500cc, 4500cc urine 04/26/17 2250 Patient's chest tube output increased from about 70ml/hr to ~300ml/hr after extubation ~1700. I was notified of this change at 1900. He has received platelets and Factor 7 with modest improvement. He has been stable with copious urine output. This past hour the chest tube drainage was 170ml which is significantly less than the hourly drainage from [id number]. 04/27 extubated after surgery, had some bleeding last pm , requiring factor 7, and plts chest tube drainage 1970cc/ 12 hrs , on 2nd pleuravac with minimal drainage up in chair, on nasal cannula slightly anxious , rhythm stable on ASA, statin start BB this evening 04/28 did not sleep well last night, instructed to ask for xanax at bedtime chest tube drained 210cc/12hrs , no air leak remains in NSR wean 02 as tolerated, gentle diuresis OOB ambulate 04/29 c/o of burning with urination urine sent / request for culture rocephin IV 04/30 doing well , will continue ceftin for UTI x 5 days ok for dc home with [facility] NSR EKG 04/29read as AMI st elevation inf/ ant/ lateral lead however s wave is below isoelectric line / NO OK Pt Condition on Discharge: Good Discharge Disposition: Disch w/ Home Health Serv Discharge Instructions DIET: Follow Instructions for: Heart Healthy Diet Activities you can perform: Full Weight Bearing, Shower Only-No Bath Activities to avoid: Strenuous Activity, Driving, Sexual Activity Additional Activity Instructio: no lifting > 8 lbs or gallon of milk Follow up Referrals: Cardiology - 4 Weeks with Jaden Dean MD PCP Follow-up - 2 Weeks with Christel Quach MD Surgical - 2 Weeks with Francine Abreu New Orders: BASIC METABOLIC PROF - 2 Weeks CBC NO DIFF - 2 Weeks X-RAY CHEST PA & LAT - 2 Weeks New Medications: Commode 3-in-1 (Commode 3-in-1) 1 Mis Mis EA .XX DIRECTED, #1 0 Refills Alprazolam (Xanax) 0.25 Mg Tab 0.25 MG PO Q12H PRN for ANXIETY, #20 TAB 0 Refills Aspirin (Tgt Aspirin) 81 Mg Chw 81 MG PO DAILY for Blood Clot Prevention, #30 EA 2 Refills Atorvastatin (Atorvastatin) 40 Mg Tab 40 MG PO HS for Cholesterol Management, #30 TAB 2 Refills Docusate Sodium (Dok) 100 Mg Cap 100 MG PO BID for Constipation, #60 CAP 0 Refills Metoprolol Tartrate (Metoprolol Tartrate) 25 Mg Tab 12.5 MG PO BID for Blood Pressure Management, #60 TAB 2 Refills Multiple Vitamins W/ Minerals (Thera M Plus) 1 Tab 1 TAB PO DAILY for multi vitamin, #30 TAB 2 Refills Oxycodone HCl/Acetaminophen (Oxycodone-Acetaminophen 5-325) 5 Mg-325 Mg Tablet 1 TAB PO Q4H PRN for PAIN SCALE 1 TO 5, #40 TAB 0 Refills Francine Abreu Apr 30, 2017 13:52
[2017-04-30] MEDS ORDERED: CEFU1TAB18 PO (13:54)
== END 2017-04-30 15:30 | disposition home health service (06) | DRG 233 ==
LOC: NEPE 12:21 → NEDA 15:38 → INTOOBSV 15:38 → N04A 17:56 → OBSVTOIN 04-25 10:28 → HCVI 04-25 11:01 → HCPC 04-28 11:12
PROVIDERS: ADMIT Thoracic Surgery (Cardiothoracic Vascular Surgery); ATTEND Thoracic Surgery (Cardiothoracic Vascular Surgery)
PROC: B2111ZZ Fluoroscopy of Multiple Coronary Arteries using Low Osmolar Contrast (ICD-10-PCS; 2017-04-25)
PROC: 4A023N7 Measurement of Cardiac Sampling and Pressure, Left Heart, Percutaneous Approach (ICD-10-PCS; 2017-04-25)
PROC: B2151ZZ Fluoroscopy of Left Heart using Low Osmolar Contrast (ICD-10-PCS; 2017-04-25)
PROC: 02100Z9 Bypass Coronary Artery, One Artery from Left Internal Mammary, Open Approach (ICD-10-PCS; 2017-04-26)
PROC: 021209W Bypass Coronary Artery, Three Arteries from Aorta with Autologous Venous Tissue, Open Approach (ICD-10-PCS; 2017-04-26)
PROC: 06BQ4ZZ Excision of Left Saphenous Vein, Percutaneous Endoscopic Approach (ICD-10-PCS; 2017-04-26)
PROC: 5A1221Z Performance of Cardiac Output, Continuous (ICD-10-PCS; 2017-04-26)
PROC: 6A550Z2 Pheresis of Platelets, Single (ICD-10-PCS; 2017-04-26)
PROC: 02100Z9 Bypass Coronary Artery, One Artery from Left Internal Mammary, Open Approach (ICD-10-PCS; principal; 2017-04-26 11:27)
DX: I25.10 Atherosclerotic heart disease of native coronary artery without angina pectoris (principal); I21.4 Non-ST elevation (NSTEMI) myocardial infarction; R00.1 Bradycardia, unspecified; I45.10 Unspecified right bundle-branch block; D75.1 Secondary polycythemia; E86.0 Dehydration; I10 Essential (primary) hypertension; R79.89 Other specified abnormal findings of blood chemistry; N28.9 Disorder of kidney and ureter, unspecified; E78.5 Hyperlipidemia, unspecified; F41.9 Anxiety disorder, unspecified; Z79.890 Hormone replacement therapy; R30.0 Dysuria
CPT/HCPCS: 36430; 71045; 76937; 80048; 80053; 80061; 80076; 81001; 82550; 82552; 82948; 83735; 84484; 85002; 85025; 85027; 85384; 85610; 85730; 86850; 86900; 86901; 86920; 87086; 87641; 93005; 93306; 93458; 93880; 93970; 93998; 94002; 94150; 94640; 94664; 94667; 94668; 96365; 96366; 96375; 99152; C1769; C1893; G0378; J0131; J0690; J0696; J1644; J1815; J1817; J1940; J2150; J2250; J2370; J2440; J2720; J2930; J3010; J3370; J3475; J3480; J7030; J7050; J7120; J7189; P9016; P9031; P9045; P9047; Q9967

== ENCOUNTER 2017-05-18 07:42 | Day surgery (SDC) | payer MEDICARE ==
[~2017-05-18 07:42] MED LIST: ALPR.25 PO; ASPI81 PO; ATOR40TA16 PO; CEFU1TAB18 PO; COMMODE 3-IN-11 MIS; DOCU1CAP39 PO; METO25TA3 PO; OXYC1TAB63 PO; THERM PO
[2017-05-18 10:00] VITALS: BP 94/60; PULSE 62; RESP 18; TEMP 97.9; O2SAT 95
[2017-05-18] MEDS ORDERED: LIDOCAINE HCL 1% 20 ML VIAL ONE (10:06)
--- NOTE | 2017-05-18 10:08 | RADRPT ---
EXAM DATE/TIME: 05/18/2017 09:46 [facility] COMPARISON: CHEST SINGLE AP, April 30, 2017, 5:54. INDICATIONS : Post left thoracentesis. MEDICAL HISTORY : None. SURGICAL HISTORY : CABG. Hernia repair. Fusion of C1-C2. Cardiac cath. ENCOUNTER: Subsequent ACUITY: 1 day PAIN SCORE: 4/10 LOCATION: Left chest FINDINGS: The examination demonstrates consolidation of the left lung base. There is no pneumothorax post thora centesis. The right lung is relatively clear. The heart is normal in size. The patient is post median sternotom y. CONCLUSION: 1. No pneumothorax identified following left thoracentesis. 2. There is consolidative change in the left lower lobe. Patrick Maya MD on May 18, 2017 at 10:06 Board Certified Radiologist. This report was verified electronically.
[2017-05-18 10:15] VITALS: BP 95/58; PULSE 62; RESP 20; O2SAT 96
--- NOTE | 2017-05-18 10:19 | RADRPT ---
EXAM DATE/TIME: 05/18/2017 07:55 [facility] COMPARISON: CHEST SINGLE AP, April 30, 2017, 5:54. CHEST EXPIRATION ONLY, May 18, 2017, 9:46. INDICATIONS : Left pleural effusion. MEDICAL HISTORY : Left pleural effusion. Shortness of breath. SURGICAL HISTORY : CABG Hernia repair. C1-C2 fusion. ENCOUNTER: Initial ACUITY: 2 weeks PAIN SCORE: 4/10 LOCATION: Left chest FLUID: Total volume of 1,100 cc of clear, red fluid was removed. Fluid was discarded. Thoracentesis was therapeutic only. TECHNIQUE: 1. Ultrasound guidance for thoracentesis. 2. Thoracentesis. The risks, benefits, and alternatives to ultrasound guided thoracentesis were explained to the patien t in lay simple terms, including the risk of bleeding and infection. Written and verbal informed con sent was obtained. Appropriate area for thoracentesis was marked under ultrasound guidance with the patient in the uprig ht position. Overlying skin was prepped and draped in the usual sterile fashion and with local anest hetic, a dermatotomy was made with an 11 blade scalpel. A 6 [place] thoracentesis catheter was placed in the pleural space and fluid was removed. Catheter was then removed and a sterile dressing applie d. There were no immediate complications. The patient tolerated the procedure well and the left the ultrasound suite in stable condition. Chest radiograph is to be obtained. CONCLUSION: Uncomplicated ultrasound guided thoracentesis. Elier So MD on May 18, 2017 at 10:16 Board Certified Radiologist. This report was verified electronically.
== END 2017-05-18 10:33 | disposition home or self-care (01) ==
LOC: HRAD 07:42 → HRIP 07:45 → HRAD 10:33
PROVIDERS: ATTEND Thoracic Surgery (Cardiothoracic Vascular Surgery)
DX: J90 Pleural effusion, not elsewhere classified (principal); I25.10 Atherosclerotic heart disease of native coronary artery without angina pectoris; Z95.1 Presence of aortocoronary bypass graft
CPT/HCPCS: 32555; 71045; C1729

== ENCOUNTER 2017-05-24 10:05 | Emergency (ER) | payer MEDICARE ==
[~2017-05-24] VITALS: Ht 175.3 cm; Wt 65.0 kg
[2017-05-24 10:07] VITALS: BP 143/66; PULSE 72; RESP 19; TEMP 97; O2SAT 98
--- NOTE | 2017-05-24 10:59 | RADRPT ---
EXAM DATE/TIME: 05/24/2017 10:43 [facility] COMPARISON: CHEST EXPIRATION ONLY, May 18, 2017, 9:46. INDICATIONS : Short of breath since CABG 1 month ago. Thoracentesis 1 week ago for left pleural effusion. MEDICAL HISTORY : Cardiovascular disease. Left plueral effusion (recent). SURGICAL HISTORY : Fusion, cervical. CABG. Hernia repair. Thoracentesis. ENCOUNTER: Subsequent ACUITY: 1 month PAIN SCORE: 0/10 LOCATION: Left chest FINDINGS: Persistent left base consolidation and effusion. Right lung is stable and clear. Visualized cardiac c ontours are unchanged. CONCLUSION: Left base consolidation and effusion Brody Ramos MD on May 24, 2017 at 10:55 Board Certified Radiologist. This report was verified electronically.
--- NOTE | 2017-05-24 11:19 | PD ---
HPI Chief Complaint: Respiratory Symptoms Time Seen by Provider: 11:03 Travel History International Travel<30 days: No Contact w/Intl Traveler<30days: No Traveled to known affect area: No History of Present Illness HPI 71-year-old male patient with history of CABG [address] Quezada, complicated by left pleural effusion which was drained by interventional radiology on Wednesday, comes to the ER today because he has not been feeling well , feeling more tired than usual, dyspnea on exertion, and had been in to see Dr. Quezada and was sent in from the office for this issue. Patient denies any fevers, chest pains, or other symptoms. Modifying Factors: None Associated Signs & Symptoms: Increased fatigue, shortness of breath, dyspnea on exertion Risk Factors: Recent pleural effusion PFSH Past Medical History Cancer: No Cardiovascular Problems: No Diminished Hearing: No Endocrine: No Genitourinary: No Immune Disorder: No Musculoskeletal: Yes Neurologic: No Psychiatric: No Reproductive: No Respiratory: No Past Surgical History Abdominal Surgery: Yes (hernia repair) Coronary Artery Bypass Graft: Yes (quad) Other Surgery: Yes Social History Alcohol Use: No Tobacco Use: No Substance Use: No Allergies-Medications (Allergen,Severity, Reaction): Coded Allergies: No Known Allergies (Unverified , 05/24/17) Reported Meds & Prescriptions Reported Meds & Active Scripts Active Potassium Chloride ER (Potassium Chloride) 20 Meq Tab 20 Meq PO DAILY Lasix (Furosemide) 40 Mg Tab 40 Mg PO DAILY Thera M Plus (Multivitamins/Minerals Therapeutic) 1 Tab 1 Tab PO DAILY Xanax (Alprazolam) 0.25 Mg Tab 0.25 Mg PO Q12H PRN Tgt Aspirin (Aspirin) 81 Mg Chw 81 Mg PO DAILY Metoprolol Tartrate 25 Mg Tab 12.5 Mg PO BID Atorvastatin (Atorvastatin Calcium) 40 Mg Tab 40 Mg PO HS Review of Systems Except as stated in HPI: all other systems reviewed are Neg Physical Exam Narrative GENERAL: Well-developed elderly white male patient currently in mild to moderate distress. Awake and oriented 3. SKIN: Focused skin assessment warm/dry. HEAD: Atraumatic. Normocephalic. EYES: Pupils equal and round. No scleral icterus. No injection or drainage. ENT: No nasal bleeding or discharge. Mucous membranes pink and moist. NECK: Trachea midline. No JVD. CARDIOVASCULAR: Regular rate and rhythm. No murmur appreciated. RESPIRATORY: No accessory muscle use. Decreased breath sounds on the left compared to the right. GASTROINTESTINAL: Abdomen soft, non-tender, nondistended. Hepatic and splenic margins not palpable. MUSCULOSKELETAL: No obvious deformities. No clubbing. No cyanosis. No edema. NEUROLOGICAL: Awake and alert. No obvious cranial nerve deficits. Motor grossly within normal limits. Normal speech. PSYCHIATRIC: Appropriate mood and affect; insight and judgment normal. Data Data Last Documented VS Vital Signs Date Time Temp Pulse Resp B/P (MAP) Pulse Ox O2 Delivery O2 Flow Rate FiO2 05/24/17 16:00 67 18 115/68 (84) 98 Room Air 05/24/17 10:07 97.0 Orders Orders Chest, Single Ap (05/24/17 10:36) Electrocardiogram (05/24/17 10:28) Complete Blood Count With Diff (05/24/17 11:11) Comprehensive Metabolic Panel (05/24/17 11:11) Prothrombin Time / Inr (Pt) (05/24/17 11:11) Act Partial Throm Time (Ptt) (05/24/17 11:11) Type And Screen (05/24/17 11:11) Echo 2d Limited (05/24/17 12:04) Invasive Rad Dept Consult (05/24/17 ) Us Guided Thoracentesis (05/24/17 ) Vital Signs (Adult) [id number] (05/24/17 15:26) Wound (05/24/17 15:26) Notify Radiology (05/24/17 15:26) Change Dressing (05/24/17 15:26) Chest, Expiration Only (05/24/17 ) Instruction (05/24/17 15:26) Lidocaine 1% Inj (Xylocaine 1% Inj) (05/24/17 15:54) Labs Laboratory Tests Test 05/24/17 11:05 White Blood Count 9.8 TH/MM3 Red Blood Count 4.44 MIL/MM3 Hemoglobin 13.4 GM/DL Hematocrit 39.7 % Mean Corpuscular Volume 89.4 FL Mean Corpuscular Hemoglobin 30.2 PG Mean Corpuscular Hemoglobin Concent 33.8 % Red Cell Distribution Width 14.8 % Platelet Count 382 TH/MM3 Mean Platelet Volume 7.3 FL Neutrophils (%) (Auto) 72.9 % Lymphocytes (%) (Auto) 12.5 % Monocytes (%) (Auto) 10.7 % Eosinophils (%) (Auto) 2.8 % Basophils (%) (Auto) 1.1 % Neutrophils # (Auto) 7.1 TH/MM3 Lymphocytes # (Auto) 1.2 TH/MM3 Monocytes # (Auto) 1.0 TH/MM3 Eosinophils # (Auto) 0.3 TH/MM3 Basophils # (Auto) 0.1 TH/MM3 CBC Comment DIFF FINAL Differential Comment Prothrombin Time 12.3 SEC Prothromb Time International Ratio 1.2 RATIO Activated Partial Thromboplast Time 25.7 SEC Blood Urea Nitrogen 16 MG/DL Creatinine 1.03 MG/DL Random Glucose 75 MG/DL Total Protein 7.1 GM/DL Albumin 2.6 GM/DL Calcium Level 8.7 MG/DL Alkaline Phosphatase 79 U/L Aspartate Amino Transf (AST/SGOT) 18 U/L Alanine Aminotransferase (ALT/SGPT) 21 U/L Total Bilirubin 0.6 MG/DL Sodium Level 139 MEQ/L Potassium Level 3.9 MEQ/L Chloride Level 103 MEQ/L Carbon Dioxide Level 28.5 MEQ/L Anion Gap 8 MEQ/L Estimat Glomerular Filtration Rate 71 ML/MIN [facility] Medical Decision Making Medical Screen Exam Complete: Yes Emergency Medical Condition: Yes Medical Record Reviewed: Yes Interpretation(s) Laboratory Tests Test 05/24/17 11:05 Red Blood Count 4.44 MIL/MM3 (4.50-5.90) Neutrophils (%) (Auto) 72.9 % (16.0-70.0) Monocytes (%) (Auto) 10.7 % (0.0-8.0) Monocytes # (Auto) 1.0 TH/MM3 (0-0.9) Prothrombin Time 12.3 SEC (9.8-11.6) Albumin 2.6 GM/DL (3.4-5.0) Estimat Glomerular Filtration Rate 71 ML/MIN (>89) Last 24 hours Impressions Chest X-Ray 05/24/17 1036 Signed Impressions: Service Date/Time: Wednesday, May 24, 2017 10:43 - CONCLUSION: Left base consolidation and effusion Brody Ramos MD Chest X-Ray 05/24/17 0000 Signed Impressions: Service Date/Time: Wednesday, May 24, 2017 15:36 - CONCLUSION: Persistent consolidative changes left base no pneumothorax. Saqib Maya MD FACR Differential Diagnosis Pleural effusion versus CHF versus pneumonia versus symptomatic anemia Narrative Course Chest x-ray shows a left-sided pleural effusion. Case was discussed with Dr. Quezada who came in to see the patient in the ER. He would like IR to do a thoracentesis, and once the patient to follow-up in his office. Patient received thoracentesis and my plan at this point would be to release him with follow-up to Dr. Quezada. Diagnosis Primary Impression: Recurrent left pleural effusion Scripts Potassium Chloride ER (Potassium Chloride ER) 20 Meq Tab 20 MEQ PO DAILY for Electrolyte Replacement, #7 TAB 1 Refill Prov: Francine Abreu 05/24/17 Furosemide (Lasix) 40 Mg Tab 40 MG PO DAILY for effusion, #7 TAB 1 Refill Prov: Francine Abreu 05/24/17 Disposition: 01 DISCHARGE HOME Condition: Stable Christina Brown MD May 24, 2017 11:19
[2017-05-24 11:28] LABS: AUTOMATED NEUTROPHIL # 7.1 TH/MM3 (1.8-7.7); BASOPHIL # 0.1 TH/MM3 (0-0.2); BASOPHIL % 1.1 % (0.0-2.0); EOSINOPHIL # 0.3 TH/MM3 (0-0.4); EOSINOPHIL % 2.8 % (0.0-4.0); HEMATOCRIT 39.7 % (39.0-51.0); HEMOGLOBIN 13.4 GM/DL (13.0-17.0); LYMPH % 12.5 % (9.0-44.0); LYMPHOCYTE # 1.2 TH/MM3 (1.0-4.8); MEAN CELL VOLUME 89.4 FL (80.0-100.0); MEAN CORPUSCULAR HEMOGLOBIN 30.2 PG (27.0-34.0); MEAN CORPUSCULAR HGB CONC 33.8 % (32.0-36.0); MEAN PLATELET VOLUME 7.3 FL (7.0-11.0); MONO % 10.7 % (0.0-8.0); NEUT % 72.9 % (16.0-70.0); PLATELET COUNT 382 TH/MM3 (150-450); RED BLOOD COUNT 4.44 MIL/MM3 (4.50-5.90); RED CELL DISTRIBUTION WIDTH 14.8 % (11.6-17.2); WHITE BLOOD COUNT 9.8 TH/MM3 (4.0-11.0)
[2017-05-24 11:34] LABS: INTERNATIONAL NORMALIZED RATIO 1.2 RATIO; PROTHROMBIN TIME - PATIENT 12.3 SEC (9.8-11.6)
[2017-05-24 11:48] LABS: ALBUMIN 2.6 GM/DL (3.4-5.0); ALT (GPT) 21 U/L (12-78); AST (GOT) 18 U/L (15-37); BICARBONATE 28.5 MEQ/L (21.0-32.0); BLOOD UREA NITROGEN 16 MG/DL (7-18); CALCIUM 8.7 MG/DL (8.5-10.1); CHLORIDE 103 MEQ/L (98-107); CREATININE 1.03 MG/DL (0.60-1.30); GLOMERULAR FILTRATION RATE 71 ML/MIN (>89); GLUCOSE,RANDOM 75 MG/DL (74-106); SODIUM (NA) 139 MEQ/L (136-145)
[2017-05-24 11:50] LABS: ALKALINE PHOSPHATASE 79 U/L (45-117); TOTAL BILIRUBIN ADULT 0.6 MG/DL (0.2-1.0); TOTAL PROTEIN 7.1 GM/DL (6.4-8.2)
[2017-05-24] MEDS ORDERED: FURO1TAB60 PO (12:38)
[2017-05-24] MEDS ORDERED: POTA-163 PO (12:38)
--- NOTE | 2017-05-24 13:23 | ECHRPT ---
Indication: R/O PERICARDIAL EFFUSION CONCLUSIONS Normal left ventricular size. The left ventricular systolic function is normal with an estimated ejection fraction in the range of 60-65%. A large left sided pleural effusion is noted. No pericardial effusion. BP: 143 / 66 HR: 72 Rhythm: Sinus Technical Quality:Fair FINDINGS PERICARDIUM A large left sided pleural effusion is noted. No pericardial effusion. Sherin Del Angel MD, FACC (Electronically Signed) Final Date:24 May 2017 13:21
--- NOTE | 2017-05-24 15:48 | RADRPT ---
EXAM DATE/TIME: 05/24/2017 15:36 [facility] COMPARISON: CHEST EXPIRATION ONLY, May 18, 2017, 9:46. INDICATIONS : Post thorocentesis, patient has been short of breath for 1 month since CABG. MEDICAL HISTORY : Cardiovascular disease. Left plueral effusion (recent). SURGICAL HISTORY : Fusion, cervical. CABG. Hernia repair. Thoracentesis ENCOUNTER: Subsequent ACUITY: 1 day PAIN SCORE: 4/10 LOCATION: Left chest FINDINGS: Consolidative changes left base. No pneumothorax. Mild interstitial edema. Mild cardiomegaly. Corby rnal wires from previous bypass. CONCLUSION: Persistent consolidative changes left base no pneumothorax. Saqib Maya MD FACR on May 24, 2017 at 15:44 Board Certified Radiologist. This report was verified electronically.
[2017-05-24] MEDS ORDERED: LIDOCAINE HCL 1% 20 ML VIAL ONE (15:54)
[2017-05-24 16:00] VITALS: BP 115/68; PULSE 67; RESP 18; O2SAT 98
--- NOTE | 2017-05-24 16:21 | RADRPT ---
EXAM DATE/TIME: 05/24/2017 15:02 [facility] COMPARISON: No previous studies available for comparison. INDICATIONS : Left pleural effusion. MEDICAL HISTORY : Left pleural effusion. SURGICAL HISTORY : CABG Hernia repair. Spinal fusion. ENCOUNTER: Subsequent ACUITY: 4 - 6 days PAIN SCORE: 0/10 LOCATION: Left chest FLUID: Total volume of 1,000 cc of clear, red fluid was removed. Fluid was discarded. Thoracentesis was therapeutic only. TECHNIQUE: 1. Ultrasound guidance for thoracentesis. 2. Thoracentesis. The risks, benefits, and alternatives to ultrasound guided thoracentesis were explained to the patien t in lay simple terms, including the risk of bleeding and infection. Written and verbal informed con sent was obtained. Appropriate area for thoracentesis was marked under ultrasound guidance with the patient in the uprig ht position. Overlying skin was prepped and draped in the usual sterile fashion and with local anest hetic, a dermatotomy was made with an 11 blade scalpel. A 6 Thai thoracentesis catheter was placed in the pleural space and fluid was removed. Catheter was then removed and a sterile dressing applie d. There were no immediate complications. The patient tolerated the procedure well and the left the ultrasound suite in stable condition. Chest radiograph is to be obtained. CONCLUSION: Uncomplicated ultrasound guided thoracentesis. Brody Ramos MD on May 24, 2017 at 16:18 Board Certified Radiologist. This report was verified electronically.
[2017-05-24 16:33] VITALS: BP 138/66; PULSE 70; RESP 16; O2SAT 98
--- NOTE | 2017-05-24 21:31 | EKG ---
Date Performed: 05/24/2017 Time Performed: 10:28:56 PTAGE: 71 years EKG: Sinus rhythm BORDERLINE LEFT AXIS DEVIATION POSSIBLE RIGHT VENTRICULAR CONDUCTION DELAY NONSPECIFIC T-WAVE ABNORM ALITY When compared to previous tracing, the anterolateral ST Elevation has resolved. BORDERLINE ECG PREVIOUS TRACING : 04/29/2017 08.49.08 DOCTOR: Genevieve Victoria Interpretating Date/Time 05/24/2017 21:30:30
== END 2017-05-24 16:55 | disposition home or self-care (01) ==
LOC: NEPE 10:05
DX: J90 Pleural effusion, not elsewhere classified (principal); R94.31 Abnormal electrocardiogram [ECG] [EKG]; R06.02 Shortness of breath; Z95.1 Presence of aortocoronary bypass graft
CPT/HCPCS: 32555; 71045; 80053; 85025; 85610; 85730; 86850; 86900; 86901; 93005; 93308; 99285; C1729